=== PATIENT | female | born 1935 | race African-American/Black ===

== ENCOUNTER 2016-10-24 11:15 | Observation (INO) ==
[2016-10-24] MEDS ORDERED: ONDANSETRON 4 MG/2 ML VIAL IV STA (12:19)
[2016-10-24] MEDS ORDERED: ALUM/MAG/SIMETH/LIDO VISC 1:1 30 ML BOTTLE PO STA (12:19)
[2016-10-24] MEDS ORDERED: METOPROLOL TARTRATE 25 MG TABLET PO STA (12:19)
[2016-10-24] MEDS ORDERED: MORPHINE 2 MG/1 ML SYRINGE IV STA (12:19)
[2016-10-24] MEDS ORDERED: NITROGLYCERIN 2% OINT 1 INCH/GM PACK TOP STA (12:19)
[2016-10-24] MEDS ORDERED: ASPIRIN 325 MG TABLET PO STA (12:19)
--- NOTE | 2016-10-24 12:23 | EKG Report ---
Stationary ECG Study [facility] ER Test Date: 10/24/2016 11:30:43 AM Pat Name: ESEQUIEL GUTIERREZ Department: Room: Gender: F [employer]er: : 1935 Requested by: Lalo Santiago Order Number: [id number] Reading MD: HIGINIO HERNANDEZ Intervals [place] Rate: 103 P: 9 [place]: 204 QRS: 9 QRSD: 89 T: -20 QT: 345 QTc: 405 Interpretive Statements SINUS TACHYCARDIA WITH FREQUENT SUPRAVENTRICULAR PREMATURE COMPLEXES LOW QRS VOLTAGE IN PRECORDIAL LEADS POSSIBLE INFERIOR MYOCARDIAL INFARCTION, OF INDETERMINATE AGE Electronically Signed On 10-24-16 13:04:58 CDT by HIGINIO HERNANDEZ [email or web address]
[2016-10-24] MEDS ORDERED: MORPHINE 2 MG/1 ML SYRINGE ONE (12:32)
[2016-10-24] MEDS ORDERED: METOPROLOL TARTRATE 25 MG TABLET ONE (12:32)
[2016-10-24] MEDS ORDERED: NITROGLYCERIN 2% OINT 1 INCH/GM PACK TOP ONE (12:32)
[2016-10-24] MEDS ORDERED: ONDANSETRON 4 MG/2 ML VIAL ONE (12:32)
[2016-10-24] MEDS ORDERED: ASPIRIN 325 MG TABLET ONE (12:33)
[2016-10-24] MEDS ORDERED: ALUM/MAG/SIMETH/LIDO VISC 1:1 30 ML BOTTLE PO ONE (12:33)
--- NOTE | 2016-10-24 12:50 | XRay Report ---
XR chest 1V portable Indication: Chest pain Comparison: 02 November 2015 Findings: The heart and mediastinum are normal in size and configuration. The pulmonary vascularity is normal in caliber. No lung infiltrates, effusions, pneumothorax or other abnormality is demonstrated. Impression: No acute cardiopulmonary disease. PROCEDURE INTERPRETED AT [facility] DEPARTMENT OF RADIOLOGY Final Report Signed by: Dr. Juve Oconnor
--- NOTE | 2016-10-24 13:07 | Emergency Department Note ---
Richard Frey Mantricia, am scribing for, and in the presence of, Lalo Joseph MD 11:41. Opal Frey Charles R, MD, personally performed the services described in this documentation, ascribed by Jess Ramos in my presence, and it is both accurate and complete . Arrival - Arrival Chief Complaint: Chest Pain Stated Complaint: chest pain ED Nursing Triage Note: pain in right side of chest and worse when she swallows since saturday. had a heart cath on saturday for same complaint. was seen at [facility] yesterday for same complaint and sent here and dcd from here yesterday. Mode of Arrival: Stretcher Limitations: No Limitations Source: Patient Time Seen by Provider: 10/24/16 11:35 - History of Present Illness HPI Narrative: Pt is an 81 y/o black female arriving to ED by EMS with c/o chest pain that onset today. Pt reports that she had a heart cath on Saturday by Dr. Martinez and a blockage was found. She reports that they ballooned it out. The same day of the heart cath, she denied any chest pain; however, today she states that she feels pressure and feels lightheaded. Pt has a PMHx of HTN, FL, PVD, CVA, IDDM, NIDDM, GERD, colon cancer, and anemia. She reports no other complaints to ED. Onset (ago): hour(s) Consistency: constant Severity: mild Allergies/Adverse Reactions: Allergies Allergy/AdvReac Type Severity Reaction Status Date / Time No Known Allergies Allergy Verified 08/13/16 09:40 Home Medications: Home Medications Medication Instructions Recorded Confirmed Type Aspirin [Ecotrin] 81 mg PO DAILY 01/12/15 10/24/16 History Carvedilol [Coreg] 6.25 mg PO DAILY 01/12/15 10/24/16 History Dexlansoprazole [Dexilant] 60 mg PO DAILY 01/12/15 10/24/16 History Gabapentin 100 mg PO TID 01/12/15 10/24/16 History Rosuvastatin Calcium [Crestor] 40 mg PO DAILY 01/12/15 10/24/16 History Insulin NPH/Regular 70/30 [HumuLIN 35 unit SUBCUT QPM 01/16/15 10/24/16 History 70/30] Insulin NPH/Regular 70/30 [HumuLIN 55 unit SUBCUT QAM 01/16/15 10/24/16 History 70/30] Ferrous Sulfate 325 mg PO DAILY 11/07/15 10/24/16 History Amlodipine Besylate 5 mg PO DAILY 08/13/16 10/24/16 History Morphine Sulfate 30 mg PO BID 08/13/16 10/24/16 History Ticagrelor [Brilinta] 90 mg PO BID 08/13/16 10/24/16 History Cilostazol 100 mg PO BID 10/15/16 10/24/16 History Cyanocobalamin/Folic Acid [Vitamin 1 tablet SL DAILY 10/15/16 10/24/16 History B80-Itmjv Acid Tablet] HYDROcodone/ACETAMIN 7.5-325 1 tablet PO BID PRN 10/15/16 10/24/16 History [[place] 7.5-325] Multivitamin [Multivitamins] 1 each PO DAILY 10/15/16 10/24/16 History Valsartan/Hydrochlorothiazide 0.5 tablet PO DAILY 10/15/16 10/24/16 History [Valsartan-Hctz 320-25 mg Tab] Benazepril HCl 40 mg PO DAILY 10/22/16 10/24/16 History Magnesium Oxide 400 mg PO DAILY 10/22/16 10/24/16 History Sitagliptin Phos/Metformin HCl 2 each PO DAILY 10/22/16 10/24/16 History [Janumet 50-1,000 mg Tablet] Ondansetron Odt Tab [Zofran Odt] 4 mg PO Q4H PRN #10 tablet 10/23/16 10/24/16 Rx Review of System - Review of System 12 point system: reviewed and no additional remarkable complaints except as stated - Review of System Constitutional: Absent: chills, diaphoresis, fever Respiratory: Absent: cough Cardiovascular: Present: chest pain. Absent: palpitations, dyspnea on exertion Gastrointestinal: Absent: abdominal pain, nausea, vomiting, diarrhea Musculoskeletal: Absent: arm pain, back pain, leg pain, neck pain Medical,Surgical,& Family Hx - Medical History Cardio: History of: Hypertension, FL (DR MORE), PVD (right leg) Neurology: History of: Cerebrovascular Accident No history of: Seizures HEENT: History of: Eye Problem (CATARACTS), Dental Problems (reports upper and lower dentures left at home) Endocrine: History of: Diabetes Mellitus (IDDM), Diabetes Mellitus (NIDDM), Dyslipidemia Respiratory: History of: Obstructive Sleep Apnea (reports currently machine is not working) Gastrointestinal: History of: GERD, GI Problems (Colon ca) Musculoskeletal: History of: Musculoskeletal Problems (reports history of 3 back surgeries for disc problems) Hematology: History of: Anemia - Surgical History Cardiac Surgeries: Sugical HX of: Cardiac Catheterization (RCA AND LAD stent) Thoracic Surgeries: Patient denies;: Organ Transplant HEENT Surgeries: Surgical HX of: Eye Surgery (CATARACTS) Abdominal Surgeries: Surgical HX of: Colonoscopy ([facility]), EGD ([facility]) Reproductive Surgeries: Surgical HX of;: Hysterectomy Orthopedic Surgeries: Surgical HX of;: Orthopedic Surgery (3 BACK SURGERYS) - Family History Family History: Reports;: Family Diabetes (daughter), Family Heart Disease (son) , Family Hypertension (daughter and son), Family Stroke (daughter) Denies;: Family Cancer - Social History Smoking Status: Former smoker Exam Vital Signs: Vital Signs Temperature 98.6 F 10/24/16 11:45 Pulse Rate 84 10/24/16 16:00 Respiratory Rate 18 10/24/16 16:00 Blood Pressure 100/50 10/24/16 16:00 O2 Sat by Pulse Oximetry 98 10/24/16 16:00 - General General appearance: alert, in no apparent distress - Head Head exam: Present: atraumatic, normocephalic, normal inspection - Eye Eye exam: Present: normal appearance, PERRL, EOMI - ENT ENT exam: Present: normal exam, normal oropharynx, mucous membranes moist, TM's normal bilaterally, normal external ear exam - Neck Neck exam: Present: normal inspection, full ROM, trachea midline. Absent: tenderness - Chest Chest inspection: Present: normal inspection, symmetric chest wall rise. Absent : tenderness - Respiratory Respiratory exam: Present: normal lung sounds bilaterally - Cardiovascular Cardiovascular exam: Present: regular rate, normal rhythm, normal heart sounds, murmur (3/6 systolic) - Abdominal Exam Abdominal exam: Present: soft, normal bowel sounds. Absent: distention, tenderness, guarding, rebound - Extremities Exam Extremities exam: Present: normal inspection, full ROM, normal capillary refill. Absent: tenderness, pedal edema - Back Exam Back exam: Present: normal inspection, full ROM. Absent: tenderness - Neurological Exam Neurological exam: Present: alert, oriented X3, CN II-XII intact, reflexes normal - Psychiatric Psychiatric exam: Present: normal affect, normal mood - Skin Skin exam: Present: warm, dry, intact, normal color Course - Consultations Consultation #1: Dr. Kiran will admit patient Time: 16:38 Results - Labs CBC & BMP: 10/24/16 13:13 10/24/16 13:13 Lab Results: I have reviewed the patients labs - Diagnostic Findings Procedure: Chest x-ray: report reviewed by me (No acute cardiopulmonary disease. ), CT - chest: report reviewed by me ( There is no evidence of pulmonary artery embolus. 2. Enlargement is obvious is a nonspecific finding and could reflect presbyesophagus or achalasia. Other considerations could include scleroderma or other connective tissue disorders. 3. 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 4. Right adrenal nodule has attenuation characteristics indeterminate for adenoma.) Disposition Clinical Impression: Atypical chest pain, PVD (peripheral vascular disease) Case discussed with: patient, patient's family Disposition: Still a Patient Condition: Stable Time of Disposition: 16:39
[2016-10-24 13:30] LABS: Basophils % 0.2 % (0.0-0.8); Eosinophils # 0.1 10*3/uL (0.0-0.87); Eosinophils % 0.9 % (0.00-10.9); Hematocrit 33.7 VOL% (35.7-47.0); Hemoglobin 10.6 GM/DL (12.0-16.0); Immature Granulocytes % 0.4 %; Immature Granulocytes Absolute 0.05 #; Lymphocytes # 1.3 10*3/uL (1.4-4.0); Lymphocytes % 11.3 % (21.3-54.2); Mean Corpuscular HGB Conc 31.5 GM/DL (32-36); Mean Corpuscular Hemoglobin 23 PG (27-34); Mean Corpuscular Volume 72.2 FL (87-102); Mean Platelet Volume 9.5 FL (9.6-12.0); Monocytes # 0.8 10*3/uL (0.11-0.8); Monocytes % 6.3 % (1.7-12.7); Neutrophils # 9.6 10*3/uL (1.4-7.4); Neutrophils % 80.9 % (38.7-73.9); Platelet Count 224 T/CUMM (130-400); Red Blood Count 4.67 MC/CUMM (3.8-5.5); Red Cell Distribution Width 15.6 % (9.3-17.3); White Blood Count 11.9 T/CUMM (4-12)
[2016-10-24 13:40] LABS: PT Patient Result 10.8 SECS
[2016-10-24 13:50] LABS: Magnesium 1.9 MG/DL (1.8-2.4)
[2016-10-24 13:54] LABS: Bilirubin,Total 0.4 MG/DL (0.2-1.0); Calcium 9.1 MG/DL (8.5-10.1); Osmolality,Calculated 285.5 MOS/KG (273-304); Potassium 4.3 MMOL/L (3.5-5.1); Total Protein 6.4 G/DL (6.4-8.3)
--- NOTE | 2016-10-24 16:29 | CT Report ---
CT chest PE study Indication: Chest pain. Shortness of breath. Elevated d-dimer. Comparison: None. Technique: CT of the chest was performed following the administration of intravenous contrast. In addition to multiple contiguous axial source images obtained from the thoracic inlet through the upper abdomen, coronal and sagittal MPR series were performed as were thin slab MIP reconstructions in the coronal and sagittal plane. The CT examination was performed using one or more of the following dose reduction techniques: Automatic exposure control, adjustment of the mA and kV according to patient size, or iterative reconstruction techniques. Findings: Lungs: Centrilobular emphysematous changes are suggested bilaterally. Dependent atelectatic changes are noted bilaterally. No pleural effusions are present. Aorta: No significant abnormality of the aorta is demonstrated. Incidental note is made of moderate stenosis involving the left subclavian artery origin. Pulmonary artery: Pulmonary artery is normal in size and demonstrates no significant abnormality. Lymph nodes: No adenopathy is noted within the axilla, marcos, or mediastinum. Heart: Heart is normal in size. Esophagus: Esophagus appears enlarged and somewhat flattened with air-fluid level within the upper chest. This is a nonspecific finding and could reflect evidence of presbyesophagus or evidence of achalasia. Osseous structures: Osseous structures of the thoracic spine, imaged rib cage, and imaged shoulder girdles demonstrate no significant abnormality. Soft tissues and muscular: Soft tissues and musculature of the chest wall as well as imaged lower neck demonstrate no acute findings. Upper abdomen: High attenuation material within the gallbladder lumen may reflect vicarious excretion of contrast. Additionally, nodular thickening involving the medial limb of the right adrenal gland is demonstrated measuring 12 mm in transverse dimension. This has a mean attenuation of 40 Hounsfield units which is indeterminate for adenoma. Impression: 1. There is no evidence of pulmonary artery embolus. 2. Enlargement is obvious is a nonspecific finding and could reflect presbyesophagus or achalasia. Other considerations could include scleroderma or other connective tissue disorders. 3. 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 4. Right adrenal nodule has attenuation characteristics indeterminate for adenoma. 10/24/2016 4:05 PM PROCEDURE INTERPRETED AT [facility] DEPARTMENT OF RADIOLOGY Final Report Signed by: Dr. Fleipe Davis
--- NOTE | 2016-10-24 17:21 | Cardiology History & Physical ---
<Niurka Robbins E - Last Filed: 10/24/16 17:09> Assessment and Plan - Time spent with patient Time spent with patient: Greater than 30 minutes (due to assessment, plan, and documentation) (1) Chest pain Status: Acute Assessment and plan: See plan of care listed below. Current Visit: Yes (2) Coronary artery disease Status: Chronic Assessment and plan: See plan of care listed below. Current Visit: Yes (3) PVD (peripheral vascular disease) Status: Chronic Assessment and plan: See plan of care listed below. Current Visit: Yes (4) Hypertension Status: Chronic Assessment and plan: See plan of care listed below. Current Visit: Yes (5) Dyslipidemia Status: Chronic Assessment and plan: See plan of care listed below. Current Visit: Yes (6) Obstructive sleep apnea Status: Chronic Assessment and plan: See plan of care listed below. Current Visit: Yes (7) Type 2 diabetes mellitus Status: Chronic Assessment and plan: See plan of care listed below. Current Visit: Yes History of Present Illness Chief complaint: chest pain History of present illness: Computer Application Developer: Dr. Grady PCP: Dr. Jerome Ms. Pond is being seen in the emergency room, #4. Ms. Pond is a 81 year old female with a history of coronary artery disease, dyslipidemia, hypertension, obstructive sleep apnea ( noncompliant with CPAP for over a year), type 2 diabetes, peripheral vascular disease. She is a former smoker having quit in 1995 after smoking for approximately 20 years. She has undergone numerous heart catheterizations and peripheral angiographies as described below. Ms. Pond was discharged home yesterday after receiving angioplasty for right external iliac in-stent restenosis and tells me that upon arriving home yesterday evening, she had an episode of vomiting followed by an episode of dizziness. She went to bed and this morning around 6:30 AM, she woke up with mid substernal chest pain. She notes this was sharp in quality and she had associated symptoms of dizziness, lightheadedness, shortness of breath. She denies any nausea, vomiting, or diaphoresis. He was mild to moderate in severity. It did not radiate. It is nonreproducible to palpation, movement, or deep breath. She tells me that this lasted approximately an hour and went away on its own. She tells me that upon arriving to our emergency room, she had a subsequent episode of chest pain which was relieved by medications that we gave her which include aspirin, nitroglycerin, morphine, metoprolol, and GI cocktail. She ambulates with a cane and reports recently, she has been able to perform her usual activities without exertional dyspnea or chest pain. On 10/22/2016, she underwent abdominal aortogram and right common iliac angiography with runoff by Dr. Grady. At that time, she was noted to have widely patent bilateral common iliac "kissing" stents extending into the distal aorta, patent right external iliac stent with a discrete area of 70% stenosis distally, mid SFA occlusion, and a widely patent proximal right SFA popliteal bypass graft with reasonably good runoff through one-vessel which is the anterior tibial artery to the ankle. She underwent angioplasty of the right external iliac in-stent restenosis with a drug-eluting balloon with good result. She is status post non-STEMI in March 2010. She underwent left heart cath on 03/16/2010 with stenting of mid LAD and ostial RCA disease. Repeat catheterization on 01/10/2011 revealed 25% proximal LAD stenosis with widely patent mid LAD stent, mild to moderate irregularities throughout the circumflex with no significant discrete lesions, and widely patent ostial/proximal RCA stent with no significant RCA disease. Her initial troponin is negative. Her EKG shows sinus tachycardia; she has had some mild ST-T changes in comparison to previous EKGs, primarily in the inferior leads. We will admit her to cardiology service to rule out for CT. We will keep her n.p.o. after midnight tonight in anticipation of possible cardiac evaluation in the morning. ASSESSMENT/PLAN: 1. CHEST PAIN - Continue to cycle cardiac biomarkers and EKGs and follow trend. Will further discuss with Dr. Kiran and await his additional recommendations. 2. CORONARY ARTERY DISEASE - Continue ASA, Brilinta, statin, beta dhruv, and ARB. Admit to telemetry to rule out CT. She is status post non-STEMI in March 2010. She underwent left heart cath on 03/16/2010 with stenting of mid LAD and ostial RCA disease. 3. PERIPHERAL VASCULAR DISEASE - Continue Brilinta, aspirin, and statin. 4. HYPERTENSION - Currently well controlled. Will resume home medications, monitor, and adjust accordingly. 5. DYSLIPIDEMIA - Lipid panel in AM. Continue lipid lowering agent. 6. OBSTRUCTIVE SLEEP APNEA - Noncompliant, will consult sleep medicine in the morning for follow up. 7. TYPE 2 DIABETES MELLITUS - She has been started on accuchecks and sliding scale insulin. I have attempted to review in detail the patient's transfer orders; however, they are currently locked up by another user and I am unable to access them. Home Medications Medication Instructions Recorded Confirmed Type Aspirin [Ecotrin] 81 mg PO DAILY 01/12/15 10/24/16 History Carvedilol [Coreg] 6.25 mg PO DAILY 01/12/15 10/24/16 History Dexlansoprazole [Dexilant] 60 mg PO DAILY 01/12/15 10/24/16 History Gabapentin 100 mg PO TID 01/12/15 10/24/16 History Rosuvastatin Calcium [Crestor] 40 mg PO DAILY 01/12/15 10/24/16 History Insulin NPH/Regular 70/30 [HumuLIN 35 unit SUBCUT QPM 01/16/15 10/24/16 History 70/30] Insulin NPH/Regular 70/30 [HumuLIN 55 unit SUBCUT QAM 01/16/15 10/24/16 History 70/30] Ferrous Sulfate 325 mg PO DAILY 11/07/15 10/24/16 History Amlodipine Besylate 5 mg PO DAILY 08/13/16 10/24/16 History Morphine Sulfate 30 mg PO BID 08/13/16 10/24/16 History Ticagrelor [Brilinta] 90 mg PO BID 08/13/16 10/24/16 History Cilostazol 100 mg PO BID 10/15/16 10/24/16 History Cyanocobalamin/Folic Acid [Vitamin 1 tablet SL DAILY 10/15/16 10/24/16 History K37-Hqbrc Acid Tablet] HYDROcodone/ACETAMIN 7.5-325 1 tablet PO BID PRN 10/15/16 10/24/16 History [[place] 7.5-325] Multivitamin [Multivitamins] 1 each PO DAILY 10/15/16 10/24/16 History Valsartan/Hydrochlorothiazide 0.5 tablet PO DAILY 10/15/16 10/24/16 History [Valsartan-Hctz 320-25 mg Tab] Benazepril HCl 40 mg PO DAILY 10/22/16 10/24/16 History Magnesium Oxide 400 mg PO DAILY 10/22/16 10/24/16 History Sitagliptin Phos/Metformin HCl 2 each PO DAILY 10/22/16 10/24/16 History [Janumet 50-1,000 mg Tablet] Ondansetron Odt Tab [Zofran Odt] 4 mg PO Q4H PRN #10 tablet 10/23/16 10/24/16 Rx Allergies Allergy/AdvReac Type Severity Reaction Status Date / Time No Known Allergies Allergy Verified 08/13/16 09:40 Review of systems: - Constitutional: Present: fatigue, As per HPI. Absent: anorexia, chills, daytime sleepiness, excessive sweating, fever(s), frequent falls, headache(s), increased appetite, lethargy, malaise, night sweats, stops breathing during sleep, weakness, weight gain, weight loss. - EENT Eyes: Present: As per HPI. Absent: blurry vision, diplopia, loss of vision Ears: Present: As per HPI. Absent: decreased hearing, ear discharge, ear pain Nose, mouth and throat: Present: As per HPI. Absent: dysphagia, epistaxis, headache(s), hoarseness, lip swelling, nasal congestion, neck mass, neck pain, sinus pressure, sore throat, throat swelling, tongue swelling, vertigo - Cardiovascular: Present: chest pain at rest, dyspnea, palpitations, lightheadedness, as per HPI. Absent: chest pain with activity, dyspnea on exertion, edema, claudication, diaphoresis, radiating jaw, neck or arm pain, orthopnea, PND - Respiratory: Present: dyspnea, as per HPI. Absent: dyspnea on exertion, cough, hemoptysis, wheezing, snoring, pain on inspiration - Gastrointestinal: Present: As per HPI. Absent: abdominal pain, bloating, change in bowel habits, constipation, diarrhea, heartburn, hematemesis, hematochezia, loose stools, melena, nausea, vomiting - Genitourinary: Present: As per HPI. Absent: difficulty urinating, dysuria, flank pain, hematuria, nocturia, urinary frequency, urinary incontinence - Musculoskeletal: Present: As per HPI. Absent: arthralgias, back pain, joint swelling, limited range of motion, muscle cramps, muscle weakness, myalgias - Neurological: Present: dizziness, As per HPI. Absent: abnormal gait, abnormal speech, behavioral changes, confusion, convulsions, disequilibrium, focal weakness, frequent falls, headache(s), memory loss, numbness, paresthesias, radicular pain, syncope, tremor(s) - Psychiatric: Present: As per HPI. Absent: anxiety, confusion, depression, panic attacks - Endocrine: Present: fatigue, As per HPI. Absent: cold intolerance, heat intolerance, polydipsia, polyphagia - Hematologic/Lymphatic: Present: As per HPI. Absent: easy bleeding, easy bruising, lymphadenopathy Medical,Surgical,& Family Hx - Medical History Cardio: History of: CAD, Hypertension, CT (DR MORE), PVD (right leg) Neurology: History of: Cerebrovascular Accident No history of: Seizures HEENT: History of: Eye Problem (CATARACTS), Dental Problems (reports upper and lower dentures left at home) Endocrine: History of: Diabetes Mellitus (IDDM), Diabetes Mellitus (NIDDM), Dyslipidemia Respiratory: History of: Obstructive Sleep Apnea (reports currently machine is not working) Gastrointestinal: History of: GERD, GI Problems (Colon ca) Musculoskeletal: History of: Musculoskeletal Problems (reports history of 3 back surgeries for disc problems) Hematology: History of: Anemia - Surgical History Cardiac Surgeries: Sugical HX of: Cardiac Catheterization (RCA AND LAD stent) Thoracic Surgeries: Patient denies;: Organ Transplant HEENT Surgeries: Surgical HX of: Eye Surgery (CATARACTS) Abdominal Surgeries: Surgical HX of: Colonoscopy ([facility]), EGD ([facility]) Reproductive Surgeries: Surgical HX of;: Hysterectomy Orthopedic Surgeries: Surgical HX of;: Orthopedic Surgery (3 BACK SURGERYS) - Family History Family History: Reports;: Family Diabetes (daughter), Family Heart Disease (son) , Family Hypertension (daughter and son), Family Stroke (daughter) Denies;: Family Cancer - Social History Smoking Status: Former smoker Frequency of Alcohol Use: None Type of Drug Use: None Marital Status: Functional capacity: uses cane/walker Cardiology Physical Exam - Constitutional Vitals: Vital Signs Temp Pulse Resp BP Pulse Ox 98.6 F 84 18 100/50 98 10/24/16 11:45 10/24/16 16:00 10/24/16 16:00 10/24/16 16:00 10/24/16 16:00 Intake and Output 10/24/16 10/24/16 10/24/16 06:59 14:59 22:59 Other: Weight 162 lb Patient Weight 10/25/16 06:59 Weight 162 lb Exam: General appearance: Pleasant and cooperative. Overweight, no acute distress. - Head Head exam: Present: normal inspection, normocephalic, atraumatic. Absent: hematoma, laceration - Eye Eye exam: Present: EOMI. Absent: conjunctival injection, nystagmus, periorbital swelling, scleral icterus, laceration to eyelids Pupils: Present: PERRL. Absent: constricted, dilated, fixed, irregular, unequal - ENT ENT exam: Present: normal exam, normal external ear exam - Neck Neck exam: Present: normal inspection. Absent: lymphadenopathy, meningismus, tenderness, thyromegaly, carotid bruit - Respiratory Respiratory exam: Present: clear to auscultation bilaterally. Absent: accessory muscle use, chest wall tenderness, rales, rhonchi, wheezing. - Cardiovascular Cardiovascular exam: Present: regular rate and rhythm. Absent: gallop, JVD, rubs, murmur - GI/Abdominal GI/Abdominal exam: Present: normal bowel sounds, soft. Absent: distended, firm , guarding, hernia, mass, tenderness, rebound. - Extremities Exam Extremities exam: Present: normal inspection, normal capillary refill. Upper extremity pulses 2+. Lower extremity pulses diminished. Absent: calf tenderness , edema -Musculoskeletal Exam Musculoskeletal: Present: No Fluid Collection, No Pain, Normal Range of Motion - Back Exam Back exam: Present: normal inspection. Absent: muscle spasm, vertebral tenderness - Neurological Exam Neurological exam: Present: alert, oriented X3, grossly intact without resting or essential tremor - Psychiatric Psychiatric exam: Present: normal affect, normal mood - Skin Skin exam: Present: normal color, warm, dry, intact. Absent: cyanosis, diaphoretic, rash, urticaria Result/EKG - Labs CBC & BMP: 10/24/16 13:13 10/24/16 13:13 Lab Results: I have reviewed the past 24 hour labs Labs: Laboratory Results - last 24 hr 10/24/16 10/24/16 10/24/16 13:13 13:13 13:13 WBC 11.9 D RBC 4.67 Hgb 10.6 L Hct 33.7 L MCV 72.2 L MCH 23 L MCHC 31.5 L RDW 15.6 Plt Count 224 MPV 9.5 L Neut % (Auto) 80.9 H Lymph % (Auto) 11.3 L Hinds % (Auto) 6.3 Eos % (Auto) 0.9 Baso % (Auto) 0.2 Neut # (Auto) 9.6 H Lymph # (Auto) 1.3 L Hinds # (Auto) 0.8 Eos # (Auto) 0.1 Baso # (Auto) 0.0 Immature Gran % 0.4 Nucleated RBC % 0.0 Immature Gran # 0.05 Nucleated RBCs # 0.00 INR PT Patient/Control Mix D-Dimer, Quantitative Sodium 139 Potassium 4.3 Chloride 106 Carbon Dioxide 24 Anion Gap 13.3 BUN 23 H Creatinine 1.40 H GFR Calculation 41 BUN/Creatinine Ratio 16.00 Glucose 197 H Calculated Osmolality 285.5 Calcium 9.1 Magnesium Total Bilirubin 0.40 AST 17 ALT 19 Alkaline Phosphatase 91 Troponin I < 0.015 B-Natriuretic Peptide Total Protein 6.4 Albumin 3.0 L Globulin 3.4 Albumin/Globulin Ratio 0.8 L Lipase 10/24/16 10/24/16 10/24/16 13:13 13:13 13:13 WBC RBC Hgb Hct MCV MCH MCHC RDW Plt Count MPV Neut % (Auto) Lymph % (Auto) Hinds % (Auto) Eos % (Auto) Baso % (Auto) Neut # (Auto) Lymph # (Auto) Hinds # (Auto) Eos # (Auto) Baso # (Auto) Immature Gran % Nucleated RBC % Immature Gran # Nucleated RBCs # INR 1.0 PT Patient/Control Mix 10.8 D-Dimer, Quantitative 3.9 Sodium Potassium Chloride Carbon Dioxide Anion Gap BUN Creatinine GFR Calculation BUN/Creatinine Ratio Glucose Calculated Osmolality Calcium Magnesium 1.9 Total Bilirubin AST ALT Alkaline Phosphatase Troponin I B-Natriuretic Peptide 63 Total Protein Albumin Globulin Albumin/Globulin Ratio Lipase 188.0 D - EKG EKG results: interpreted by me, sinus rhythm <Haja Kiran - Last Filed: 10/24/16 20:29> History of Present Illness History of present illness: Cardiology addendum Patient has a long cardiac history and complex PVD history. Patient was just discharged home yesterday October 23 one day after undergoing right iliac stent PTCA for restenosis by Dr. Grady October 22. She was discharged yesterday morning and she was nauseated. Nausea persisted through most the day and she eventually vomited up. When she vomited she had chest pain briefly and then felt better. She came to the ER for evaluation. Troponin is negative. BNP level is 63. EKG shows sinus rhythm with ST-T wave changes only. CT the chest was negative for pulmonary embolus and for aortic dissection but did show centrilobular emphysema. Status post mid LAD stent April 07, 2009 with 3.5 x 15 vision and status post ostial RCA stent with a 4.5 x 18 ultra. Status post non-Q-wave CT March 16, 2010. 3. Heart cath at that time showed a 99% in-stent mid LAD restenosis which was restented with a 3.0 x 23 Promus and the proximal right coronary artery had a distal edge dissection which was stented with a 3.5 x 22 Promus. Circumflex had mild disease only and ejection fraction 70%. Patient has had multiple Peripheral vascular procedures. Status post bilateral iliac artery stents 2013. Status post right SFA to Popliteal bypass November 14, [address] Max Kerr for multiple reocclusions of right SFA stents. Patient has chronic dyspnea but denies any exertional angina. I believe that she had nausea and vomiting secondary to her recent dye load and she is comfortable at this time. Creatinine 1.40 BUN 23 potassium 4.3 magnesium 1.9 Plan Monitor Lexiscan cardiac stress test in a.m. Normal saline hydration Findings and plan discussed with nurse Duran present for the full discussion Cardiology Physical Exam - Constitutional Vitals: Vital Signs Temp Pulse Resp BP Pulse Ox 97.2 F L 86 18 106/48 98 10/24/16 19:12 10/24/16 19:12 10/24/16 19:12 10/24/16 19:12 10/24/16 19:12 Intake and Output 10/24/16 10/24/16 10/24/16 07:59 15:59 23:59 Other: Weight 73.482 kg 74.525 kg Patient Weight 10/24/16 23:59 Weight 74.525 kg Result/EKG - Labs CBC & BMP: 10/24/16 19:58 10/24/16 13:13 Labs: Laboratory Results - last 24 hr 10/24/16 10/24/16 10/24/16 13:13 13:13 13:13 WBC 11.9 D RBC 4.67 Hgb 10.6 L Hct 33.7 L MCV 72.2 L MCH 23 L MCHC 31.5 L RDW 15.6 Plt Count 224 MPV 9.5 L Neut % (Auto) 80.9 H Lymph % (Auto) 11.3 L Hinds % (Auto) 6.3 Eos % (Auto) 0.9 Baso % (Auto) 0.2 Neut # (Auto) 9.6 H Lymph # (Auto) 1.3 L Hinds # (Auto) 0.8 Eos # (Auto) 0.1 Baso # (Auto) 0.0 Immature Gran % 0.4 Nucleated RBC % 0.0 Immature Gran # 0.05 Nucleated RBCs # 0.00 INR PT Patient/Control Mix D-Dimer, Quantitative Sodium 139 Potassium 4.3 Chloride 106 Carbon Dioxide 24 Anion Gap 13.3 BUN 23 H Creatinine 1.40 H GFR Calculation 41 BUN/Creatinine Ratio 16.00 Glucose 197 H POC Glucose Calculated Osmolality 285.5 Calcium 9.1 Magnesium Total Bilirubin 0.40 AST 17 ALT 19 Alkaline Phosphatase 91 Troponin I < 0.015 B-Natriuretic Peptide Total Protein 6.4 Albumin 3.0 L Globulin 3.4 Albumin/Globulin Ratio 0.8 L Lipase 10/24/16 10/24/16 10/24/16 13:13 13:13 13:13 WBC RBC Hgb Hct MCV MCH MCHC RDW Plt Count MPV Neut % (Auto) Lymph % (Auto) Hinds % (Auto) Eos % (Auto) Baso % (Auto) Neut # (Auto) Lymph # (Auto) Hinds # (Auto) Eos # (Auto) Baso # (Auto) Immature Gran % Nucleated RBC % Immature Gran # Nucleated RBCs # INR 1.0 PT Patient/Control Mix 10.8 D-Dimer, Quantitative 3.9 Sodium Potassium Chloride Carbon Dioxide Anion Gap BUN Creatinine GFR Calculation BUN/Creatinine Ratio Glucose POC Glucose Calculated Osmolality Calcium Magnesium 1.9 Total Bilirubin AST ALT Alkaline Phosphatase Troponin I B-Natriuretic Peptide 63 Total Protein Albumin Globulin Albumin/Globulin Ratio Lipase 188.0 D 10/24/16 10/24/16 19:33 19:58 WBC 10.0 RBC 4.31 Hgb 9.6 L Hct 30.6 L MCV 71.0 L MCH 22 L MCHC 31.4 L RDW 15.3 Plt Count 219 MPV 10.1 Neut % (Auto) 74.4 H Lymph % (Auto) 17.7 L Hinds % (Auto) 6.1 Eos % (Auto) 1.1 Baso % (Auto) 0.2 Neut # (Auto) 7.4 Lymph # (Auto) 1.8 Hinds # (Auto) 0.6 Eos # (Auto) 0.1 Baso # (Auto) 0.0 Immature Gran % 0.5 Nucleated RBC % 0.0 Immature Gran # 0.05 Nucleated RBCs # 0.00 INR PT Patient/Control Mix D-Dimer, Quantitative Sodium Potassium Chloride Carbon Dioxide Anion Gap BUN Creatinine GFR Calculation BUN/Creatinine Ratio Glucose POC Glucose 225 H Calculated Osmolality Calcium Magnesium Total Bilirubin AST ALT Alkaline Phosphatase Troponin I B-Natriuretic Peptide Total Protein Albumin Globulin Albumin/Globulin Ratio Lipase
[2016-10-24] MEDS ORDERED: MORPHINE 2 MG/1 ML SYRINGE IV PRN (18:21)
[2016-10-24] MEDS ORDERED: MAGNESIUM SULF RIDER 2 GM in PREMIX 1 EACH IV PRN (18:21)
[2016-10-24] MEDS ORDERED: POTASSIUM CHLORIDE 20 MEQ TABLET PO PRN (18:21)
[2016-10-24] MEDS ORDERED: GLUCAGON 1 MG VIAL IM PRN (18:21)
[2016-10-24] MEDS ORDERED: DEXTROSE 50% 25 GM/50 ML VIAL IV PRN (18:21)
[2016-10-24] MEDS ORDERED: MAGNESIUM SULF RIDER 4 GM in PREMIX 1 EACH IV PRN (18:21)
[2016-10-24] MEDS ORDERED: DEXTROSE 5% NACL 0.9% 1,000 ML IV SCH (19:00)
[2016-10-24 20:04] LABS: Basophils % 0.2 % (0.0-0.8); Eosinophils # 0.1 10*3/uL (0.0-0.87); Eosinophils % 1.1 % (0.00-10.9); Hematocrit 30.6 VOL% (35.7-47.0); Hemoglobin 9.6 GM/DL (12.0-16.0); Immature Granulocytes % 0.5 %; Immature Granulocytes Absolute 0.05 #; Lymphocytes # 1.8 10*3/uL (1.4-4.0); Lymphocytes % 17.7 % (21.3-54.2); Mean Corpuscular HGB Conc 31.4 GM/DL (32-36); Mean Corpuscular Hemoglobin 22 PG (27-34); Mean Platelet Volume 10.1 FL (9.6-12.0); Monocytes # 0.6 10*3/uL (0.11-0.8); Monocytes % 6.1 % (1.7-12.7); Neutrophils # 7.4 10*3/uL (1.4-7.4); Neutrophils % 74.4 % (38.7-73.9); Platelet Count 219 T/CUMM (130-400); Red Blood Count 4.31 MC/CUMM (3.8-5.5); Red Cell Distribution Width 15.3 % (9.3-17.3)
[2016-10-24 20:36] LABS: Troponin I Only < 0.015 NG/ML (0.00-0.045)
[2016-10-24 20:42] LABS: Calcium 8.4 MG/DL (8.5-10.1); Magnesium 1.8 MG/DL (1.8-2.4); Osmolality,Calculated 286.7 MOS/KG (273-304); Potassium 4.2 MMOL/L (3.5-5.1)
[2016-10-24] MEDS: MORPHINE ER 30 MG TABLET PO SCH (22:15)
[2016-10-24] MEDS: INSULIN REGULAR 100 UNIT/ML SUBCUT SCH (22:15)
[2016-10-24] MEDS: TICAGRELOR 90 MG TABLET PO SCH (22:15)
[2016-10-24] MEDS: GABAPENTIN 100 MG CAPSULE PO SCH (22:15)
[2016-10-24] MEDS: CILOSTAZOL 100 MG TABLET PO SCH (22:19)
--- NOTE | 2016-10-25 06:39 | EKG Report ---
Stationary ECG Study [facility] Test Date: 10/24/2016 6:36:36 PM Pat Name: ESEQUIEL GUTIERREZ Department: Room: 266 Gender: F Pharmacy General Manager: [place] : 1935 Requested by: Lalo Santiago Order Number: [id number] Hay MD: HIGINIO HERNANDEZ Intervals [place] Rate: 83 P: 91 GA: 219 QRS: -16 QRSD: 86 T: 77 QT: 366 QTc: 406 Interpretive Statements SINUS RHYTHM WITH PROLONGED GA INTERVAL WITH OCCASIONAL SUPRAVENTRICULAR PREMATURE COMPLEXES Electronically Signed On 10-27-16 14:00:15 CDT by HIGINIO HERNANDEZ [email or web address]
[2016-10-25 06:51] LABS: Risk Ratio 1.94; VLDL CHOLESTEROL 17.6 MG/DL
[2016-10-25 06:54] LABS: Troponin I Only < 0.015 NG/ML (0.00-0.045)
--- NOTE | 2016-10-25 07:23 | XRay Report ---
History: Shortness of breath Date: 10/25/2016 Study: Chest x-ray PA and lateral Comparison exam: 10/24/2016 The cardiac silhouette is upper normal in size. There is no mediastinal mass. There is mild aortic arch calcification. The pulmonary vasculature is not engorged. There is some minor subsegmental atelectasis in the left lung base, though this is slightly improved. There is no new or worsening infiltrate. There is nonspecific mild pleural effusion layering posteriorly on the right. Osseous structures are unchanged. Impression: Minor subsegmental atelectasis left lung base, slightly improved in the interval. Trace right pleural effusion PROCEDURE INTERPRETED AT [facility] DEPARTMENT OF RADIOLOGY Final Report Signed by: Dr. Fatmata Jose
[2016-10-25] MEDS ORDERED: INSULIN NPH/REGULAR 70/30 100 UNIT/ML SUBCUT SCH ×2 (08:00→19:00)
[2016-10-25] MEDS ORDERED: VALSARTAN/HCTZ 160-12.5 MG TABLET PO SCH (09:00)
[2016-10-25] MEDS ORDERED: CARVEDILOL 6.25 MG TABLET PO SCH (09:00)
[2016-10-25] MEDS ORDERED: metFORMIN 500 MG TABLET PO SCH (09:00)
[2016-10-25] MEDS ORDERED: amLODIPine 5 MG TABLET PO SCH (09:00)
[2016-10-25] MEDS ORDERED: MULTIVITAMIN (CENTRUM) TABLET PO SCH (09:00)
[2016-10-25] MEDS ORDERED: NON-FORMULARY MEDICATION (Dexlansoprazole [Dexilant] 60 MG) PO SCH (09:00)
[2016-10-25] MEDS ORDERED: PANTOPRAZOLE 40 MG TABLET PO SCH (09:00)
[2016-10-25] MEDS ORDERED: BENAZEPRIL 40 MG TABLET PO SCH (09:00)
[2016-10-25] MEDS ORDERED: FERROUS SULFATE 325 MG TABLET PO SCH (09:00)
[2016-10-25] MEDS ORDERED: [UNRECOGNIZED DRUG - OTHER] SL SCH (09:00)
[2016-10-25] MEDS ORDERED: ROSUVASTATIN 20 MG TABLET PO SCH (09:00)
[2016-10-25] MEDS ORDERED: CYANOCOBALAMIN SL SCH (09:00)
[2016-10-25] MEDS ORDERED: MAGNESIUM OXIDE 400 MG TABLET PO SCH (09:00)
[2016-10-25] MEDS ORDERED: sitaGLIPtin 100 MG TABLET PO SCH (09:00)
[2016-10-25] MEDS ORDERED: ASPIRIN EC 81 MG TABLET PO SCH (09:00)
[2016-10-25] MEDS ORDERED: FOLIC ACID SL SCH (09:00)
--- NOTE | 2016-10-25 09:05 | Cardiology Progress Note ---
Assessment and Plan - Time spent with patient Time spent with patient: Less than 30 minutes (1) Chest pain Status: Acute Assessment and plan: See plan of care listed below. Current Visit: Yes (2) Coronary artery disease Status: Chronic Assessment and plan: See plan of care listed below. Current Visit: Yes (3) PVD (peripheral vascular disease) Status: Chronic Assessment and plan: See plan of care listed below. Current Visit: Yes (4) Hypertension Status: Chronic Assessment and plan: See plan of care listed below. Current Visit: Yes (5) Dyslipidemia Status: Chronic Assessment and plan: See plan of care listed below. Current Visit: Yes (6) Obstructive sleep apnea Status: Chronic Assessment and plan: See plan of care listed below. Current Visit: Yes (7) Type 2 diabetes mellitus Status: Chronic Assessment and plan: See plan of care listed below. Current Visit: Yes Cardiology - PN: Subj Interval history: Complaint Coordinator: Dr. Grady PCP: Dr. Jerome SUMMARY: Ms. Pond is a 81 year old female with a history of coronary artery disease, dyslipidemia, hypertension, obstructive sleep apnea ( noncompliant with CPAP for over a year), type 2 diabetes, peripheral vascular disease who presented to the ER yesterday afternoon with complaints of vomiting , dizziness, and chest pain. 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 She went to bed and the next morning, she woke up with mid substernal chest pain. She was admitted to cardiology's service to rule out [place]. OCTOBER 25, 2016: Patient reports she had no further episodes of chest pain or dizziness. Cardiac biomarkers were negative and her EKGs were unremarkable. She underwent Lexiscan Cardiolite this morning and we are awaiting these results. Echocardiogram is pending. We will obtain orthostatic vital signs. ASSESSMENT/PLAN: 1. CHEST PAIN - She underwent Lexiscan Cardiolite this morning without incident. We are currently awaiting these results. She denies any further episodes of chest pain yesterday evening and this morning. Will further discuss with Dr. Kiran and await his additional recommendations. 2. CORONARY ARTERY DISEASE - She has ruled out for [place]. Continue ASA, Brilinta, statin, beta dhruv, and ARB. She is status post non-STEMI in March 2010. She underwent left heart cath on 03/16/2010 with stenting of mid LAD and ostial RCA disease. 3. PERIPHERAL VASCULAR DISEASE - Continue Brilinta, aspirin, and statin. 4. HYPERTENSION - Currently well controlled. Will resume home medications, monitor, and adjust accordingly. 5. DYSLIPIDEMIA - Continue lipid lowering agent. Triglycerides 88, cholesterol 103, LDL 38, HDL 53. 6. OBSTRUCTIVE SLEEP APNEA - Noncompliant, will consult sleep medicine for follow up. 7. TYPE 2 DIABETES MELLITUS - She has been started on accuchecks and sliding scale insulin. Exam (Progress Note) - Constitutional Vitals: Period Temp Pulse Resp BP Sys/Brown Pulse Ox Last 24 Hr 96.4 F-98.6 F 78-102 16-20 100-148/48-70 90-100 Exam: General: Present: Appears Well, No Apparent Distress. Pleasant and cooperative. HEENT: Present: PERRL, Normocephaly, atraumatic. Mucus Membranes Moist. No jaundice noted. Conjunctiva moist and clear. Neck: Present: Supple Neck, Midline Trachea, No Masses, No Bruit, No tenderness Cardiac: Present: Regular Rate and Rhythm, No Murmur Lungs: Present: clear to auscultation bilaterally, no wheezes, rhonchi, rales. Neuro: Present: Awake, alert, and oriented x3. Moves all extremities well without hemiparesis or paralysis. Grossly Intact. Absent: Resting Tremor, Essential Tremor Abdomen: Present: Soft, Active Bowel Sounds, No Masses, Non-Tender, nondistended. No abdominal bruit or thrill noted. Skin: Present: Clear. Absent: Rash, No skin breakdown. Back: Normal inspection, no vertebral tenderness. Musculoskeletal: Present: No Fluid Collection, No Pain, Normal Range of Motion Extremities: Present: Normal Gait, No Clubbing, No Cyanosis, Upper Extr. Pulses 2+, Lower Extr. Pulses diminished, No edema. Capillary refill less than 3 seconds. Result/EKG - Labs CBC & BMP: 10/24/16 19:58 10/24/16 19:58 Lab Results: I have reviewed the past 24 hour labs Labs: Laboratory Results - last 24 hr 10/24/16 10/24/16 10/24/16 13:13 13:13 13:13 WBC 11.9 D RBC 4.67 Hgb 10.6 L Hct 33.7 L MCV 72.2 L MCH 23 L MCHC 31.5 L RDW 15.6 Plt Count 224 MPV 9.5 L Neut % (Auto) 80.9 H Lymph % (Auto) 11.3 L [place] % (Auto) 6.3 Eos % (Auto) 0.9 Baso % (Auto) 0.2 Neut # (Auto) 9.6 H Lymph # (Auto) 1.3 L [place] # (Auto) 0.8 Eos # (Auto) 0.1 Baso # (Auto) 0.0 Immature Gran % 0.4 Nucleated RBC % 0.0 Immature Gran # 0.05 Nucleated RBCs # 0.00 INR PT Patient/Control Mix D-Dimer, Quantitative Sodium 139 Potassium 4.3 Chloride 106 Carbon Dioxide 24 Anion Gap 13.3 BUN 23 H Creatinine 1.40 H GFR Calculation 41 BUN/Creatinine Ratio 16.00 Glucose 197 H POC Glucose Calculated Osmolality 285.5 Calcium 9.1 Magnesium Total Bilirubin 0.40 AST 17 ALT 19 Alkaline Phosphatase 91 Total Creatine Kinase CK-MB (CK-2) Troponin I < 0.015 B-Natriuretic Peptide Total Protein 6.4 Albumin 3.0 L Globulin 3.4 Albumin/Globulin Ratio 0.8 L Triglycerides Cholesterol LDL Cholesterol VLDL Cholesterol HDL Cholesterol Heart Disease Risk Ratio Lipase 10/24/16 10/24/16 10/24/16 13:13 13:13 13:13 WBC RBC Hgb Hct MCV MCH MCHC RDW Plt Count MPV Neut % (Auto) Lymph % (Auto) [place] % (Auto) Eos % (Auto) Baso % (Auto) Neut # (Auto) Lymph # (Auto) [place] # (Auto) Eos # (Auto) Baso # (Auto) Immature Gran % Nucleated RBC % Immature Gran # Nucleated RBCs # INR 1.0 PT Patient/Control Mix 10.8 D-Dimer, Quantitative 3.9 Sodium Potassium Chloride Carbon Dioxide Anion Gap BUN Creatinine GFR Calculation BUN/Creatinine Ratio Glucose POC Glucose Calculated Osmolality Calcium Magnesium 1.9 Total Bilirubin AST ALT Alkaline Phosphatase Total Creatine Kinase CK-MB (CK-2) Troponin I B-Natriuretic Peptide 63 Total Protein Albumin Globulin Albumin/Globulin Ratio Triglycerides Cholesterol LDL Cholesterol VLDL Cholesterol HDL Cholesterol Heart Disease Risk Ratio Lipase 188.0 D 07/26/17 07/26/17 07/26/17 19:33 19:58 19:58 WBC 10.0 RBC 4.31 Hgb 9.6 L Hct 30.6 L MCV 71.0 L MCH 22 L MCHC 31.4 L RDW 15.3 Plt Count 219 MPV 10.1 Neut % (Auto) 74.4 H Lymph % (Auto) 17.7 L [place] % (Auto) 6.1 Eos % (Auto) 1.1 Baso % (Auto) 0.2 Neut # (Auto) 7.4 Lymph # (Auto) 1.8 [place] # (Auto) 0.6 Eos # (Auto) 0.1 Baso # (Auto) 0.0 Immature Gran % 0.5 Nucleated RBC % 0.0 Immature Gran # 0.05 Nucleated RBCs # 0.00 INR PT Patient/Control Mix D-Dimer, Quantitative Sodium 138 Potassium 4.2 Chloride 105 Carbon Dioxide 25 Anion Gap 12.2 BUN 24 H Creatinine 1.50 H GFR Calculation 38 BUN/Creatinine Ratio 16.00 Glucose 242 H POC Glucose 225 H Calculated Osmolality 286.7 Calcium 8.4 L Magnesium 1.8 Total Bilirubin AST ALT Alkaline Phosphatase Total Creatine Kinase CK-MB (CK-2) Troponin I B-Natriuretic Peptide Total Protein Albumin Globulin Albumin/Globulin Ratio Triglycerides Cholesterol LDL Cholesterol VLDL Cholesterol HDL Cholesterol Heart Disease Risk Ratio Lipase 10/24/16 10/25/16 10/25/16 19:58 06:07 06:07 WBC RBC Hgb Hct MCV MCH MCHC RDW Plt Count MPV Neut % (Auto) Lymph % (Auto) [place] % (Auto) Eos % (Auto) Baso % (Auto) Neut # (Auto) Lymph # (Auto) [place] # (Auto) Eos # (Auto) Baso # (Auto) Immature Gran % Nucleated RBC % Immature Gran # Nucleated RBCs # INR PT Patient/Control Mix D-Dimer, Quantitative Sodium Potassium Chloride Carbon Dioxide Anion Gap BUN Creatinine GFR Calculation BUN/Creatinine Ratio Glucose POC Glucose Calculated Osmolality Calcium Magnesium Total Bilirubin AST ALT Alkaline Phosphatase Total Creatine Kinase 84 71 CK-MB (CK-2) 3.0 2.1 Troponin I < 0.015 < 0.015 B-Natriuretic Peptide Total Protein Albumin Globulin Albumin/Globulin Ratio Triglycerides 88 Cholesterol 103 LDL Cholesterol 38.0 VLDL Cholesterol 17.6 HDL Cholesterol 53 Heart Disease Risk Ratio 1.94 Lipase 10/25/16 07:04 WBC RBC Hgb Hct MCV MCH MCHC RDW Plt Count MPV Neut % (Auto) Lymph % (Auto) [place] % (Auto) Eos % (Auto) Baso % (Auto) Neut # (Auto) Lymph # (Auto) [place] # (Auto) Eos # (Auto) Baso # (Auto) Immature Gran % Nucleated RBC % Immature Gran # Nucleated RBCs # INR PT Patient/Control Mix D-Dimer, Quantitative Sodium Potassium Chloride Carbon Dioxide Anion Gap BUN Creatinine GFR Calculation BUN/Creatinine Ratio Glucose POC Glucose 161 H Calculated Osmolality Calcium Magnesium Total Bilirubin AST ALT Alkaline Phosphatase Total Creatine Kinase CK-MB (CK-2) Troponin I B-Natriuretic Peptide Total Protein Albumin Globulin Albumin/Globulin Ratio Triglycerides Cholesterol LDL Cholesterol VLDL Cholesterol HDL Cholesterol Heart Disease Risk Ratio Lipase - EKG EKG results: interpreted by me, sinus rhythm
--- NOTE | 2016-10-25 09:06 | Event Note ---
Patient for nuclear stress testing this morning. Lexiscan protocol utilized due to gait instability and lower extremity fatigue. THR achieved. No significant EKG changes noted. Patient experienced mild dyspnea. No chest pain, heaviness, or tightness noted. No dizziness, lightheadedness, or syncope. Patient now to nuclear medicine for final scan. Dr. Kiran to read, interpret, and advise.
[2016-10-25] MEDS ORDERED: REGADENOSON 0.4 MG/5 ML SYRINGE IV ONE (09:32)
--- NOTE | 2016-10-25 12:23 | Sleep Medicine Consult ---
Assessment and Plan (1) Obstructive sleep apnea Status: Chronic Assessment and plan: Ms. Pond has a history of obstructive sleep apnea and has remained compliant with CPAP therapy in the past. Since her device malfunctioned in April of this year, she has been without CPAP therapy. I contacted her DME provider, Goyo Massey and since her insurance has changed since earlier this year, she will be eligible for a replacement device. A prescription for replacement CPAP device as well as needed supplies was faxed to her DME provider, Goyo massey. She will need to follow-up in sleep clinic to establish compliance after being on her replacement CPAP device for over 31 days. Current Visit: Yes History of Present Illness Chief complaint: RODOLFO History of present illness: Ms. Pond is a 81 year old female was admitted with recurrent chest pain following her heart cath earlier this week. She is well known by our practice at [facility]. She has a history of obstructive sleep apnea was actually diagnosed in April 2010 with mild obstructive sleep apnea with a diagnostic AHI of 12.3, more significant REM component with an AHI of 26 and oxygen desaturations as low as 89%. She was prescribed CPAP therapy for treatment and was on a pressure setting of 11 cm. She was last seen in sleep clinic in April of this year at which time her CPAP device was not functioning properly. She was provided a prescription for replacement device but unfortunately, never received this due to issues with her insurance. She has been without CPAP for over 6 months. In the past, she had always remained compliant with CPAP and had excellent control of her underlying apnea. She acknowledges improvement in her sleep as well as her daytime fatigue and sleepiness with use of CPAP and is ready to resume it. She is accompanied today by 2 family members and has excellent family support. Her medical history remains positive for ischemic heart disease, diabetes, hypertension, hyperlipidemia and anemia. Home Medications Medication Instructions Recorded Confirmed Type Aspirin [Ecotrin] 81 mg PO DAILY 01/12/15 10/25/16 History Carvedilol [Coreg] 6.25 mg PO DAILY 01/12/15 10/25/16 History Dexlansoprazole [Dexilant] 60 mg PO DAILY 01/12/15 10/25/16 History Gabapentin 100 mg PO TID 01/12/15 10/25/16 History Rosuvastatin Calcium [Crestor] 40 mg PO DAILY 01/12/15 10/25/16 History Insulin NPH/Regular 70/30 [HumuLIN 35 unit SUBCUT QPM 01/16/15 10/24/16 History 70/30] Insulin NPH/Regular 70/30 [HumuLIN 55 unit SUBCUT QAM 01/16/15 10/24/16 History 70/30] Ferrous Sulfate 325 mg PO DAILY 11/07/15 10/25/16 History Amlodipine Besylate 5 mg PO DAILY 08/13/16 10/25/16 History Morphine Sulfate 30 mg PO BID 08/13/16 10/24/16 History Ticagrelor [Brilinta] 90 mg PO BID 08/13/16 10/25/16 History Cilostazol 100 mg PO BID 10/15/16 10/25/16 History Cyanocobalamin/Folic Acid [Vitamin 1 tablet SL DAILY 10/15/16 10/25/16 History X96-Hrbsp Acid Tablet] HYDROcodone/ACETAMIN 7.5-325 1 tablet PO BID PRN 10/15/16 10/24/16 History [[place] 7.5-325] Multivitamin [Multivitamins] 1 each PO DAILY 10/15/16 10/25/16 History Valsartan/Hydrochlorothiazide 0.5 tablet PO DAILY 10/15/16 10/25/16 History [Valsartan-Hctz 320-25 mg Tab] Benazepril HCl 40 mg PO DAILY 10/22/16 10/25/16 History Magnesium Oxide 400 mg PO DAILY 10/22/16 10/25/16 History Sitagliptin Phos/Metformin HCl 2 each PO DAILY 10/22/16 10/25/16 History [Janumet 50-1,000 mg Tablet] Ondansetron Odt Tab [Zofran Odt] 4 mg PO Q4H PRN #10 tablet 10/23/16 10/24/16 Rx guaiFENesin [Guaifenesin] 400 mg PO Q4HR PRN 10/25/16 10/25/16 History Allergies Allergy/AdvReac Type Severity Reaction Status Date / Time No Known Allergies Allergy Verified 08/13/16 09:40 - Constitutional Constitutional: Present: daytime sleepiness, fatigue, night sweats, stops breathing during sleep - Cardiovascular Cardiovascular: Present: chest pain with activity, dyspnea on exertion - Respiratory Respiratory: Present: dyspnea on exertion, snoring - Gastrointestinal Gastrointestinal: Present: heartburn. Absent: abdominal pain, constipation, diarrhea - Genitourinary Genitourinary: Present: urinary frequency - Psychiatric Psychiatric: Absent: anxiety, depression Exam ([place]) H&P - Constitutional Vitals: Period Temp Pulse Resp BP Sys/Brown Pulse Ox Last 24 Hr 96.4 F-98.6 F 78-95 16-20 100-148/48-67 90-100 General appearance: normal weight - Head Head exam: Present: normocephalic, atraumatic - Eye Pupils: Present: APOORVA - ENT ENT exam: Present: other (Mallampati III) - Expanded ENT Exam ENT Exam Throat exam: Absent: post pharyngeal edema, post pharyngeal erythema - Neck Neck exam: Absent: lymphadenopathy, thyromegaly - Respiratory Respiratory exam: Present: clear to auscultation bilaterally. Absent: rales, rhonchi, wheezes - Cardiovascular Cardiovascular exam: Present: regular rate and rhythm - GI/Abdominal GI/Abdominal exam: Present: normal bowel sounds, soft. Absent: mass, tenderness - Extremities Exam Extremities exam: Present: edema (trace edema) - Neurological Exam Neurological exam: Present: oriented X3 - Psychiatric Psychiatric exam: Present: normal affect, normal mood. Absent: depressed - Skin Skin exam: Present: warm, dry Medical,Surgical,& Family Hx - Medical History Cardio: History of: CAD, Hypertension, IA (DR MORE), PVD (right leg) Neurology: History of: Cerebrovascular Accident No history of: Seizures HEENT: History of: Eye Problem (CATARACTS), Dental Problems (reports upper and lower dentures left at home) Endocrine: History of: Diabetes Mellitus (IDDM), Diabetes Mellitus (NIDDM), Dyslipidemia Respiratory: History of: Obstructive Sleep Apnea (reports currently machine is not working) Gastrointestinal: History of: GERD, GI Problems (Colon ca) Musculoskeletal: History of: Musculoskeletal Problems (reports history of 3 back surgeries for disc problems) Hematology: History of: Anemia - Surgical History Cardiac Surgeries: Sugical HX of: Cardiac Catheterization (RCA AND LAD stent) Thoracic Surgeries: Patient denies;: Organ Transplant HEENT Surgeries: Surgical HX of: Eye Surgery (CATARACTS) Abdominal Surgeries: Surgical HX of: Colonoscopy ([facility]), EGD ([facility]) Reproductive Surgeries: Surgical HX of;: Hysterectomy Orthopedic Surgeries: Surgical HX of;: Orthopedic Surgery (3 BACK SURGERYS) - Family History Family History: Reports;: Family Diabetes (daughter), Family Heart Disease (son) , Family Hypertension (daughter and son), Family Stroke (daughter) Denies;: Family Cancer - Social History Smoking Status: Former smoker Frequency of Alcohol Use: None Type of Drug Use: None Results - Labs CBC & BMP: 10/24/16 19:58 10/24/16 19:58
[2016-10-25] MEDS: INSULIN REGULAR 100 UNIT/ML SUBCUT SCH ×2 (14:14→16:04)
[2016-10-25] MEDS: GABAPENTIN 100 MG CAPSULE PO SCH ×2 (14:17→16:00)
[2016-10-25] MEDS: MORPHINE ER 30 MG TABLET PO SCH (15:59)
[2016-10-25] MEDS: CILOSTAZOL 100 MG TABLET PO SCH (16:00)
[2016-10-25] MEDS: TICAGRELOR 90 MG TABLET PO SCH (16:01)
[2016-10-25 16:39] VITALS: BP 121/62
--- NOTE | 2016-10-25 17:06 | Discharge Summary ---
Hospital Course - Hospital Course Hospital Course: Tire Installer: Dr. Grady PCP: Dr. Jerome Ms. Pond is a 81 year old female with a history of coronary artery disease, dyslipidemia, hypertension, obstructive sleep apnea ( noncompliant with CPAP for over a year), type 2 diabetes, peripheral vascular disease who presented to the ER yesterday afternoon with complaints of vomiting , dizziness, and chest pain. 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 She went to bed and the next morning, she woke up with mid substernal chest pain. She was admitted to cardiology's service to rule out [place]. Cardiac biomarkers were negative and her EKGs were unremarkable. She underwent Lexiscan Cardiolite this morning which was abnormal but stable. EF 34% . Please see report for details. We will continue medical therapy on her current regimen. At discharge on 10/23, she was nauseated which persisted throughout the day. She eventually vomited and had a brief episode of chest pain then felt better. It is felt this is secondary to her recent dye load and she has had no further symptoms of chest discomfort. Her vital signs and labwork have been stable. At this time, she is felt to have met maximum benefit from hospitalization and will be discharged home in stable condition. Keep follow up appointment with Dr. Grady on 10/30/16 at 08:20AM. - Time spent with patient Time with patient DS: Greater than 30 minutes Diagnosis - Discharge Diagnosis (1) Chest pain Status: Resolved (2) Coronary artery disease Status: Chronic (3) PVD (peripheral vascular disease) Status: Chronic (4) Hypertension Status: Chronic (5) Dyslipidemia Status: Chronic (6) Obstructive sleep apnea Status: Chronic (7) Type 2 diabetes mellitus Status: Chronic Specialty Discharge - Follow Up or Referrals Follow up with: Kade Grady MD [Physician] - 10/30/16 8:20 am Discharge Plan - Discharge Data Disposition: Disch To Home/Self Care Condition at Discharge: Stable Discharge Diet: diabetic diet, heart healthy Activity: no lifting (Do not lift over 5 pounds for the next 4-5 days. ) Hygiene: may shower (Do not submerge cath site beneath water for the next 4-5 days. ) Weight Bearing at Discharge: full weight bearing Driving: not for (1 day) Contact your physician if you experience:: fever over 101, Difficulty voiding, Redness or swelling, Nausea/Vomiting, Shortness of breath, Bleeding, pain uncontrolled by pain medications - Discharge Medications Continue Carvedilol [Coreg] 6.25 mg PO DAILY Rosuvastatin Calcium [Crestor] 40 mg PO DAILY Dexlansoprazole [Dexilant] 60 mg PO DAILY Gabapentin 100 mg PO TID Aspirin [Ecotrin] 81 mg PO DAILY Insulin NPH/Regular 70/30 [HumuLIN 70/30] 55 unit SUBCUT QAM Insulin NPH/Regular 70/30 [HumuLIN 70/30] 35 unit SUBCUT QPM Ferrous Sulfate 325 mg PO DAILY Ticagrelor [Brilinta] 90 mg PO BID Amlodipine Besylate 5 mg PO DAILY HYDROcodone/ACETAMIN 7.5-325 [[place] 7.5-325] 1 tablet PO BID PRN PRN Reason: Pain Cilostazol 100 mg PO BID Benazepril HCl 40 mg PO DAILY Morphine Sulfate 30 mg PO BID Valsartan/Hydrochlorothiazide [Valsartan-Hctz 320-25 mg Tab] 0.5 tablet PO DAILY Multivitamin [Multivitamins] 1 each PO DAILY Cyanocobalamin/Folic Acid [Vitamin O54-Nulyg Acid Tablet] 1 tablet SL DAILY Magnesium Oxide 400 mg PO DAILY Sitagliptin Phos/Metformin HCl [Janumet 50-1,000 mg Tablet] 2 each PO DAILY Ondansetron Odt Tab [Zofran Odt] 4 mg PO Q4H PRN #10 tablet PRN Reason: Nausea guaiFENesin [Guaifenesin] 400 mg PO Q4HR PRN PRN Reason: Congestion - Follow Up or Referral - Forms/Instructions Exam - Constitutional Vitals: Period Temp Pulse Resp BP Sys/Brown Pulse Ox Last 24 Hr 96.4 F-98.6 F 72-99 16-20 102-156/48-77 90-100 Exam: General: Present: Appears Well, No Apparent Distress. Pleasant and cooperative. HEENT: Present: PERRL, Normocephaly, atraumatic. Mucus Membranes Moist. No jaundice noted. Conjunctiva moist and clear. Neck: Present: Supple Neck, Midline Trachea, No Masses, No Bruit, No tenderness Cardiac: Present: Regular Rate and Rhythm, No Murmur Lungs: Present: clear to auscultation bilaterally, no wheezes, rhonchi, rales. Neuro: Present: Awake, alert, and oriented x3. Moves all extremities well without hemiparesis or paralysis. Grossly Intact. Absent: Resting Tremor, Essential Tremor Abdomen: Present: Soft, Active Bowel Sounds, No Masses, Non-Tender, nondistended. No abdominal bruit or thrill noted. Skin: Present: Clear. Absent: Rash, No skin breakdown. Back: Normal inspection, no vertebral tenderness. Musculoskeletal: Present: No Fluid Collection, No Pain, Normal Range of Motion Extremities: Present: Normal Gait, No Clubbing, No Cyanosis, Upper Extr. Pulses 2+, Lower Extr. Pulses diminished, No edema. Capillary refill less than 3 seconds. Discharge Results Procedures and tests throughout hospitalization: Pending Orders 10/25/16 NM martha perf SPECT rest or str Routine 10/25/16 04:00 Urinalysis Labs on day of discharge: Labs from last 24 hours 10/25/16 10/25/16 10/25/16 15:58 12:04 07:04 WBC RBC Hgb Hct MCV MCH MCHC RDW Plt Count MPV Neut % (Auto) Lymph % (Auto) [place] % (Auto) Eos % (Auto) Baso % (Auto) Neut # (Auto) Lymph # (Auto) [place] # (Auto) Eos # (Auto) Baso # (Auto) Immature Gran % Nucleated RBC % Immature Gran # Nucleated RBCs # Sodium Potassium Chloride Carbon Dioxide Anion Gap BUN Creatinine GFR Calculation BUN/Creatinine Ratio Glucose POC Glucose 173 H 182 H 161 H Calculated Osmolality Calcium Magnesium Total Creatine Kinase CK-MB (CK-2) Troponin I Triglycerides Cholesterol LDL Cholesterol VLDL Cholesterol HDL Cholesterol Heart Disease Risk Ratio 10/25/16 10/25/16 10/24/16 06:07 06:07 19:58 WBC RBC Hgb Hct MCV MCH MCHC RDW Plt Count MPV Neut % (Auto) Lymph % (Auto) [place] % (Auto) Eos % (Auto) Baso % (Auto) Neut # (Auto) Lymph # (Auto) [place] # (Auto) Eos # (Auto) Baso # (Auto) Immature Gran % Nucleated RBC % Immature Gran # Nucleated RBCs # Sodium Potassium Chloride Carbon Dioxide Anion Gap BUN Creatinine GFR Calculation BUN/Creatinine Ratio Glucose POC Glucose Calculated Osmolality Calcium Magnesium Total Creatine Kinase 71 84 CK-MB (CK-2) 2.1 3.0 Troponin I < 0.015 < 0.015 Triglycerides 88 Cholesterol 103 LDL Cholesterol 38.0 VLDL Cholesterol 17.6 HDL Cholesterol 53 Heart Disease Risk Ratio 1.94 10/24/16 10/24/16 10/24/16 19:58 19:58 19:33 WBC 10.0 RBC 4.31 Hgb 9.6 L Hct 30.6 L MCV 71.0 L MCH 22 L MCHC 31.4 L RDW 15.3 Plt Count 219 MPV 10.1 Neut % (Auto) 74.4 H Lymph % (Auto) 17.7 L [place] % (Auto) 6.1 Eos % (Auto) 1.1 Baso % (Auto) 0.2 Neut # (Auto) 7.4 Lymph # (Auto) 1.8 [place] # (Auto) 0.6 Eos # (Auto) 0.1 Baso # (Auto) 0.0 Immature Gran % 0.5 Nucleated RBC % 0.0 Immature Gran # 0.05 Nucleated RBCs # 0.00 Sodium 138 Potassium 4.2 Chloride 105 Carbon Dioxide 25 Anion Gap 12.2 BUN 24 H Creatinine 1.50 H GFR Calculation 38 BUN/Creatinine Ratio 16.00 Glucose 242 H POC Glucose 225 H Calculated Osmolality 286.7 Calcium 8.4 L Magnesium 1.8 Total Creatine Kinase CK-MB (CK-2) Troponin I Triglycerides Cholesterol LDL Cholesterol VLDL Cholesterol HDL Cholesterol Heart Disease Risk Ratio DS: Provider Date of admission: 10/24/16 16:39 Primary care physician: . No PCP Attending physician on admission: Haja Kiran MD Consults: 10/24/16 18:30 Consult to Dietitian [CONS] Routine Reason for Dietitian: Other 10/25/16 08:00 Consult to Sleep Center [CONS] Routine Reason for Sleep Center: Sleep Center Physician Consult Comment: Hx RODOLFO, noncompliant >1 year Discharging clinician: MARIAH Solis-JUAN
--- NOTE | 2016-10-25 18:12 | Nuclear Medicine Report ---
DATE OF SERVICE: 10/25/2016 PROCEDURE: LEXISCAN CARDIOLITE GATED SPECT PERFUSION STUDY. INITIAL IMPRESSION: 1. AN 79-YEAR-OLD WOMAN WITH ATYPICAL CHEST PAIN. 2. STATUS POST LAD AND RCA STENTS. 3. ABNORMAL EKG. 4. HYPERTENSION. FINAL IMPRESSION: ABNORMAL BUT STABLE LEXISCAN CARDIOLITE GATED SPECT PERFUSION STUDY. I. DESCRIPTION OF PROCEDURE: The patient received 10.0 mCi of Technetium-99m Cardiolite IV and rest imaging was obtained in a routine manner 20 minutes later. The patient then received 30.0 mCi of Te chnetium-99m Cardiolite IV and pharmacologic stress imaging was obtained in a routine manner 20 minut es later. Serial electrocardiograms were performed. The initial blood pressure was 130/60 it and wa s 120/60 immediately post Lexiscan. The peak heart rate was 128. II. RESULTS: The patient had no chest pain or arrhythmias and tolerate Lexiscan infusion well. The resting EKG demonstrates normal sinus rhythm with poor R-wave progression across precordium and ST-T wave changes. With pharmacologic stress, no diagnostic EKG changes occurred. No arrhythmias. The left ventricle is dilated. Tomographic images shows distal anteroapical scar with no surrounding ischemia. Gated SPECT imaging demonstrates moderate global hypokinesis. The calculated ejection fr action is 33%. III. FINAL IMPRESSION: 1. CLINICALLY AND ELECTROCARDIOGRAPHICALLY NEGATIVE. 2. SCINTIGRAPHICALLY ABNORMAL ANTEROAPICAL SCAR AND NO ISCHEMIC. 3. SIGNIFICANT LEFT VENTRICULAR DYSFUNCTION EJECTION FRACTION OF 34% IV. DISPOSITION: The patient status post mid LAD and ostial RCA stent around 2013. He had no chest pain or diagnostic EKG changes. Tomographic imaging shows distal anteroapical scar with no ischemia . There is moderate global hypokinesis, ejection fraction calculated 34%. The patient has a compens ated ischemic cardiomyopathy. Continued medical therapy and risk factor modification recommended. Procedure performed and interpreted at [facility] Department of Radiology.
--- NOTE | 2016-10-25 18:36 | ECHO Report ---
Heather Pond Exam Date: 10/25/2016 09:58 Referring Physician: Technologist: raghu Arredondo ARDMS, RVT Age: 81 Ht (in): 63 Wt (lb): 162 Gender: F Exam Location: [facility] Echo Indications: Essential (primary) hypertension, Chest pain, unspecified, RODOLFO, PVD, CAD, Dyslipidemia BP: 117 / 56 HR: 95 Rhythm: Sinus Technical Quality: Good IMPRESSIONS Normal left ventricular cavity size. Left ventricular ejection fraction is estimated at 65%. Grade I/IV diastolic dysfunction (abnormal relaxation filling pattern), normal to mildly elevated filling pressures. The right ventricle is normal in size and function. The right atrium is normal in size. The left atrium is normal in size. Mitral valve sclerosis. Trace mitral valve regurgitation. Aortic valve sclerosis without stenosis or regurgitation. Mild tricuspid valve regurgitation. PAP40 mmHG. Pulmonic valve not well visualized. Normal pericardium without effusion. Normal ascending aorta dimension. MEASUREMENTS (Male / Female) Normal Values 2D ECHO LV Diastolic Diameter PLAX 4.1 cm 4.2 - 5.9 / 3.9 - 5.3 cm LV Systolic Diameter PLAX 2.1 cm LV Fractional Shortening PLAX 49.4 % IVS Diastolic Thickness 1.1 cm 0.6 - 1.0 / 0.6 - 0.9 cm LVPW Diastolic Thickness 1.0 cm 0.6 - 1.0 / 0.6 - 0.9 cm RV Internal Dim ED PLAX 3.6 cm Aortic Root Diameter 3.0 cm LA Systolic Diameter LX 2.6 cm 3.0 - 4.0 / 2.7 - 3.8 cm DOPPLER TR Peak Velocity 197.0 cm/s TR Peak Gradient 15.5 mmHg FINDINGS Left Ventricle Grade I/IV diastolic dysfunction (abnormal relaxation filling pattern), normal to mildly elevated filling pressures. Normal left ventricular cavity size. Mild left ventricular hypertrophy. Left ventricular ejection fraction is estimated at 65%. Right Ventricle The right ventricle is normal in size and function. Right Atrium The right atrium is normal in size. Left Atrium The left atrium is normal in size. Mitral Valve Mitral valve sclerosis. Trace mitral valve regurgitation. Aortic Valve Aortic valve sclerosis without stenosis or regurgitation. Tricuspid Valve Morphologically normal tricuspid valve. Mild tricuspid valve regurgitation. PAP40 mmHG. Pulmonic Valve Pulmonic valve not well visualized. Pericardium Normal pericardium without effusion. Aorta Normal ascending aorta dimension. Maikel Plavac (Electronically Signed) Final Date: 25 October 2016 18:35
== END 2016-10-25 18:39 | disposition home or self-care (01) | DRG 303 ==
LOC: EDBD → EDUNIT# → N.ED 11:15 → N.EDINP 16:39 → INTOOBSV 16:39 → N.TELES 18:10
PROVIDERS: ADMIT Internal Medicine Cardiovascular Disease; ATTEND Internal Medicine Cardiovascular Disease

== ENCOUNTER 2016-10-26 23:34 | Inpatient (IN) ==
[2016-10-27] MEDS ORDERED: ONDANSETRON 4 MG/2 ML VIAL IV STA (00:03)
[2016-10-27] MEDS ORDERED: LACTATED RINGERS 1,000 ML IV ONE (00:03)
[2016-10-27] MEDS ORDERED: DEXAMETHASONE 10 MG/1 ML VIAL ONE (00:04)
[2016-10-27] MEDS ORDERED: ONDANSETRON 4 MG/2 ML VIAL ONE (00:06)
[2016-10-27 00:58] LABS: Basophils % 0.2 % (0.0-0.8); Eosinophils # 0.1 10*3/uL (0.0-0.87); Eosinophils % 0.5 % (0.00-10.9); Hematocrit 36.3 VOL% (35.7-47.0); Hemoglobin 11.6 GM/DL (12.0-16.0); Immature Granulocytes % 0.8 %; Immature Granulocytes Absolute 0.11 #; Lymphocytes # 0.7 10*3/uL (1.4-4.0); Lymphocytes % 5.1 % (21.3-54.2); Mean Corpuscular Hemoglobin 22 PG (27-34); Mean Corpuscular Volume 70.2 FL (87-102); Mean Platelet Volume 10.4 FL (9.6-12.0); Monocytes # 0.8 10*3/uL (0.11-0.8); Neutrophils # 11.4 10*3/uL (1.4-7.4); Neutrophils % 87.4 % (38.7-73.9); Platelet Count 223 T/CUMM (130-400); Red Blood Count 5.17 MC/CUMM (3.8-5.5); Red Cell Distribution Width 15.4 % (9.3-17.3); White Blood Count 13.1 T/CUMM (4-12)
[2016-10-27 01:05] LABS: Apearance,Urine Slightly Hazy (Clear); Bacteria,Urine Few /HPF (Few); Bilirubin,Urine Negative (Negative); Blood, Urine Negative (Negative); Glucose,Urine (UA) Negative (Negative); Granular Casts,Urine 2 /LPF (0-1); Hyaline Casts,Urine 12 /LPF (0-3); Ketones,Urine Negative (Negative); Mucus,Urine Occasional /LPF (Occasional); Nitrite,Urine Negative (Negative); Protein,Urine 30 MG/DL; Squamous Epithelial Cell,Urine Occasional /HPF (0-10); Urine Color Yellow (Yellow); Urine Specific Gravity 1.018 (1.001-1.035); WBC,Urine 2 /HPF (0-6)
[2016-10-27 01:13] LABS: Albumin 3.2 G/DL (3.4-5.0); Bilirubin,Total 0.4 MG/DL (0.2-1.0); Calcium 9.4 MG/DL (8.5-10.1); Osmolality,Calculated 297.8 MOS/KG (273-304); Potassium 4.4 MMOL/L (3.5-5.1)
[2016-10-27 01:33] LABS: Lymphocytes 11 % (20-55); Segmented Neutrophils 86 % (50-85); Total Cells Counted 100
[2016-10-27 01:34] LABS: Ovalocytes 1+; Platelet Estimate Normal
[2016-10-27 01:35] LABS: Target Cells Few
--- NOTE | 2016-10-27 01:42 | Emergency Department Note ---
Pallavi Frey Hilary, am scribing for, and in the presence of, Lucio Ziegler MD 00:07 . Karlie Frey Hans, MD, personally performed the services described in this documentation, ascribed by Myra Olivo in my presence, and it is both accurate and complete . Arrival - Arrival Chief Complaint: Nausea/Vomiting/Diarrhea Stated Complaint: n/v ED Nursing Triage Note: Pt brought in by EMS with c/o n/v x2 days. Pt had heart cath done 3days ago by Dr. Yuen. Pt was seen and treated at [facility] today and dischaged home per EMS. Mode of Arrival: Stretcher Limitations: No Limitations Source: Patient, RN Notes Reviewed Time Seen by Provider: 10/26/16 23:50 - History of Present Illness HPI Narrative: Pt is a 89 y/o female brought into the ED via EMS for c/o nausea and vomiting which onset 2 days ago. Pt had a heart cath done [address] Yuen.She was seen here in the ED 3 days ago and discharged, then the next day came back and was admitted and given a stress test. Pt was seen and treated at [facility] today and dischaged home after x-rays and blood work. Pt confirms nausea and vomiting but denies diarrhea, hematochezia, fever, chills, vision change or swelling in her legs. She reports similar symptoms last time she had a heart cath and was told it had to do with the "dye". She reports not being able to keep liquids or solid food down. No other complaints or problems stated in the ED. Onset (ago): day(s) Consistency: constant Severity: mild Severity scale (1-10): 1 Allergies/Adverse Reactions: Allergies Allergy/AdvReac Type Severity Reaction Status Date / Time No Known Allergies Allergy Verified 08/13/16 09:40 Home Medications: Home Medications Medication Instructions Recorded Confirmed Type Aspirin [Ecotrin] 81 mg PO DAILY 01/12/15 10/25/16 History Carvedilol [Coreg] 6.25 mg PO DAILY 01/12/15 10/25/16 History Dexlansoprazole [Dexilant] 60 mg PO DAILY 01/12/15 10/25/16 History Gabapentin 100 mg PO TID 01/12/15 10/25/16 History Rosuvastatin Calcium [Crestor] 40 mg PO DAILY 01/12/15 10/25/16 History Insulin NPH/Regular 70/30 [HumuLIN 35 unit SUBCUT QPM 01/16/15 10/24/16 History 70/30] Insulin NPH/Regular 70/30 [HumuLIN 55 unit SUBCUT QAM 01/16/15 10/24/16 History 70/30] Ferrous Sulfate 325 mg PO DAILY 11/07/15 10/25/16 History Amlodipine Besylate 5 mg PO DAILY 08/13/16 10/25/16 History Morphine Sulfate 30 mg PO BID 08/13/16 10/24/16 History Ticagrelor [Brilinta] 90 mg PO BID 08/13/16 10/25/16 History Cilostazol 100 mg PO BID 10/15/16 10/25/16 History Cyanocobalamin/Folic Acid [Vitamin 1 tablet SL DAILY 10/15/16 10/25/16 History G56-Czkfi Acid Tablet] HYDROcodone/ACETAMIN 7.5-325 1 tablet PO BID PRN 10/15/16 10/24/16 History [[place] 7.5-325] Multivitamin [Multivitamins] 1 each PO DAILY 10/15/16 10/25/16 History Valsartan/Hydrochlorothiazide 0.5 tablet PO DAILY 10/15/16 10/25/16 History [Valsartan-Hctz 320-25 mg Tab] Benazepril HCl 40 mg PO DAILY 10/22/16 10/25/16 History Magnesium Oxide 400 mg PO DAILY 10/22/16 10/25/16 History Sitagliptin Phos/Metformin HCl 2 each PO DAILY 10/22/16 10/25/16 History [Janumet 50-1,000 mg Tablet] Ondansetron Odt Tab [Zofran Odt] 4 mg PO Q4H PRN #10 tablet 10/23/16 10/24/16 Rx guaiFENesin [Guaifenesin] 400 mg PO Q4HR PRN 10/25/16 10/25/16 History Review of System - Review of System 12 point system: reviewed and no additional remarkable complaints except as stated - Review of System Constitutional: Absent: chills, fever Eyes: Absent: vision change Gastrointestinal: Present: nausea, vomiting. Absent: abdominal pain, diarrhea, hematochezia Musculoskeletal: Absent: leg pain Medical,Surgical,& Family Hx - Medical History Cardio: History of: CAD, Hypertension, [place] (DR YUEN), PVD (right leg) Neurology: History of: Cerebrovascular Accident (May 2012) No history of: Seizures HEENT: History of: Eye Problem (CATARACTS), Dental Problems (reports upper and lower dentures left at home) Endocrine: History of: Diabetes Mellitus (IDDM), Diabetes Mellitus (NIDDM), Dyslipidemia Respiratory: History of: Obstructive Sleep Apnea (reports currently machine is not working) Gastrointestinal: History of: GERD, GI Problems (Colon ca) Musculoskeletal: History of: Musculoskeletal Problems (reports history of 3 back surgeries for disc problems) Hematology: History of: Anemia - Surgical History Cardiac Surgeries: Sugical HX of: Cardiac Catheterization (RCA AND LAD stent) Thoracic Surgeries: Patient denies;: Organ Transplant HEENT Surgeries: Surgical HX of: Eye Surgery (CATARACTS) Abdominal Surgeries: Surgical HX of: [facility]oscopy [facility]), EGD ([facility]) Reproductive Surgeries: Surgical HX of;: Hysterectomy Orthopedic Surgeries: Surgical HX of;: Orthopedic Surgery (3 BACK SURGERYS) - Family History Family History: Reports;: Family Diabetes (daughter), Family Heart Disease (son) , Family Hypertension (daughter and son), Family Stroke (daughter) Denies;: Family Cancer - Social History Smoking Status: Never smoker Frequency of Alcohol Use: None Type of Drug Use: None Exam Vital Signs: Vital Signs Temperature 97.1 F L 10/26/16 23:35 Pulse Rate 106 H 10/26/16 23:35 Respiratory Rate 18 10/26/16 23:35 Blood Pressure 119/62 10/26/16 23:35 O2 Sat by Pulse Oximetry 99 10/26/16 23:35 - General General appearance: alert, in no apparent distress - Head Head exam: Present: atraumatic, normocephalic - Eye Eye exam: Present: normal appearance, PERRL, EOMI - ENT ENT exam: Present: mucous membranes moist, TM's normal bilaterally. Absent: mucous membranes dry - Neck Neck exam: Present: full ROM, trachea midline. Absent: tenderness - Chest Chest inspection: Present: symmetric chest wall rise. Absent: tenderness - Respiratory Respiratory exam: Present: normal lung sounds bilaterally. Absent: respiratory distress - Cardiovascular Cardiovascular exam: Present: regular rate, irregular rhythm, normal heart sounds. Absent: murmur, rubs, gallop - Abdominal Exam Abdominal exam: Present: soft, distention (slight Tympanitic), normal bowel sounds. Absent: tenderness - Extremities Exam Extremities exam: Present: full ROM. Absent: tenderness - Back Exam Back exam: Present: full ROM. Absent: tenderness - Neurological Exam Neurological exam: Present: alert, oriented X3, CN II-XII intact. Absent: motor sensory deficit - Psychiatric Psychiatric exam: Present: normal affect, normal mood - Skin Skin exam: Present: warm, dry, intact, normal color. Absent: rash Course Course Narrative: This patient was evaluated in the ER with lab work, urinalysis, and x-ray of the abdomen. She appeared to have an ileus and had intractable nausea and vomiting that had resulted in a renal injury from prerenal volume depletion. She was treated with fluids and I will discuss her presentation with hospitalist on-call for admission. Results - Labs CBC & BMP: 10/27/16 00:12 10/27/16 00:12 Lab Results: I have reviewed the patients labs Labs: Laboratory Tests 10/27/16 00:12 WBC 13.1 H D RBC 5.17 Hgb 11.6 L D Hct 36.3 MCV 70.2 L MCH 22 L Plt Count 223 Neut % (Auto) 87.4 H Lymph % (Auto) 5.1 L Neut # (Auto) 11.4 H Lymph # (Auto) 0.7 L Laboratory Tests 10/27/16 10/27/16 00:12 00:12 Sodium 144 Potassium 4.4 Chloride 104 Carbon Dioxide 27 Anion Gap 17.4 H BUN 32 H Creatinine 2.10 H Glucose 188 H Total Protein 7.0 Albumin 3.2 L Globulin 3.8 H Albumin/Globulin Ratio 0.8 L Urine pH 5.0 Ur Specific [place] 1.018 Urine Protein 30 Urine Urobilinogen 2.0 H Urine WBC 2 Ur Squamous Epith Cells Occasional Hyaline Casts 12 Granular Casts 2 Urine Mucus Occasional Disposition Clinical Impression: Gastroenteritis, Ileus Case discussed with: patient, patient's family Disposition: Still a Patient Condition: Stable Instructions: Gastroenteritis (ED) Time of Disposition: 01:42
[2016-10-27] MEDS ORDERED: ONDANSETRON 4 MG/2 ML VIAL IV PRN (04:24)
[2016-10-27] MEDS ORDERED: ACETAMINOPHEN 325 MG TABLET PO PRN (04:24)
--- NOTE | 2016-10-27 04:41 | Hospitalist History & Physical ---
Assessment and Plan (1) Ileus Status: Acute Assessment and plan: Patient appears to have a ileus/partial central obstruction. Will give bowel rest with n.p.o. and IV fluid monitor renal function and volume status as patient has history of cardiomyopathy. Will get surgery consult Current Visit: Yes (2) Acute kidney injury Status: Acute Assessment and plan: Probably due to ileus/obstruction. Recent cardiac cath may have some contribution will hydrate as patient not been able to tolerate p.o. fluids and has been vomiting at home Current Visit: Yes (3) Hypertension Status: Chronic Assessment and plan: Blood pressure is controlled I will hold antihypertensive medication as patient has possible partial instrument obstruction Current Visit: No (4) Type 2 diabetes mellitus Status: Chronic Assessment and plan: We will monitor blood sugar with the sliding scale short-acting insulin every 6 hours Current Visit: No (5) Peripheral vascular disease Status: Chronic Assessment and plan: Recent stents and on antiplatelet therapy will continue consult cardiology as patient has not been able to tolerate p.o. medications Current Visit: Yes (6) Cardiomyopathy Status: Chronic Assessment and plan: Patient has history of cardiomyopathy/CHF but compensated at present she is on IV fluid to watch volume status closely Current Visit: Yes History of Present Illness Chief complaint: Nausea vomiting. History of present illness: Ms. Pond is a 81 year old female with history of coronary artery disease dyslipidemia hypertension sleep apnea type 2 diabetes mellitus peripheral vascular disease. She was recently admitted and discharged on 10/23/2014 planned angioplasty and had drug-coated balloon (7.0 x 40 Admiral) to in-stent restenosis in her distal right external iliac with good result. She was admitted next day with the vomiting and chest pain. She underwent a myocardial perfusion scan and was noted no evidence of ischemia and had left ventricle ejection fraction of 34%. She continued to have vomiting and nausea since then without any diarrhea. She is unable to hold any medication or food. She denies any abdominal pain had a bowel movement 3 days ago but still passing gas. She denies any fever cough or shortness breath. No chest pain reported she has been voiding without any dysuria or hematuria. She was seen in the ER today and underwent evaluation. Her lab work showed WBC count of 13.1 hemoglobin 11.6 hematocrit 36.3. She has BUN of 32 creatinine 2.1. Abdominal x-ray was consistent with the ileus with possible partial intestinal obstruction with multiple fluid levels. I was asked to admit the patient and patient is admitted for further evaluation and management Home Medications Medication Instructions Recorded Confirmed Type Aspirin [Ecotrin] 81 mg PO DAILY 01/12/15 10/25/16 History Carvedilol [Coreg] 6.25 mg PO DAILY 01/12/15 10/25/16 History Dexlansoprazole [Dexilant] 60 mg PO DAILY 01/12/15 10/25/16 History Gabapentin 100 mg PO TID 01/12/15 10/25/16 History Rosuvastatin Calcium [Crestor] 40 mg PO DAILY 01/12/15 10/25/16 History Insulin NPH/Regular 70/30 [HumuLIN 35 unit SUBCUT QPM 01/16/15 10/24/16 History 70/30] Insulin NPH/Regular 70/30 [HumuLIN 55 unit SUBCUT QAM 01/16/15 10/24/16 History 70/30] Ferrous Sulfate 325 mg PO DAILY 11/07/15 10/25/16 History Amlodipine Besylate 5 mg PO DAILY 08/13/16 10/25/16 History Morphine Sulfate 30 mg PO BID 08/13/16 10/24/16 History Ticagrelor [Brilinta] 90 mg PO BID 08/13/16 10/25/16 History Cilostazol 100 mg PO BID 10/15/16 10/25/16 History Cyanocobalamin/Folic Acid [Vitamin 1 tablet SL DAILY 10/15/16 10/25/16 History M92-Svfip Acid Tablet] HYDROcodone/ACETAMIN 7.5-325 1 tablet PO BID PRN 10/15/16 10/24/16 History [[place] 7.5-325] Multivitamin [Multivitamins] 1 each PO DAILY 10/15/16 10/25/16 History Valsartan/Hydrochlorothiazide 0.5 tablet PO DAILY 10/15/16 10/25/16 History [Valsartan-Hctz 320-25 mg Tab] Benazepril HCl 40 mg PO DAILY 10/22/16 10/25/16 History Magnesium Oxide 400 mg PO DAILY 10/22/16 10/25/16 History Sitagliptin Phos/Metformin HCl 2 each PO DAILY 10/22/16 10/25/16 History [Janumet 50-1,000 mg Tablet] Ondansetron Odt Tab [Zofran Odt] 4 mg PO Q4H PRN #10 tablet 10/23/16 10/24/16 Rx guaiFENesin [Guaifenesin] 400 mg PO Q4HR PRN 10/25/16 10/25/16 History Allergies Allergy/AdvReac Type Severity Reaction Status Date / Time No Known Allergies Allergy Verified 08/13/16 09:40 Medical,Surgical,& Family Hx - Medical History Cardio: History of: CAD, Hypertension, [place] (DR MORE), PVD (right leg) Neurology: History of: Cerebrovascular Accident (May 2012) No history of: Seizures HEENT: History of: Eye Problem (CATARACTS), Dental Problems (reports upper and lower dentures left at home) Endocrine: History of: Diabetes Mellitus (IDDM), Diabetes Mellitus (NIDDM), Dyslipidemia Respiratory: History of: Obstructive Sleep Apnea (reports currently machine is not working) Gastrointestinal: History of: GERD, GI Problems (Colon ca) Musculoskeletal: History of: Musculoskeletal Problems (reports history of 3 back surgeries for disc problems) Hematology: History of: Anemia - Surgical History Cardiac Surgeries: Sugical HX of: Cardiac Catheterization (RCA AND LAD stent) Thoracic Surgeries: Patient denies;: Organ Transplant HEENT Surgeries: Surgical HX of: Eye Surgery (CATARACTS) Abdominal Surgeries: Surgical HX of: Colonoscopy ([facility]), EGD ([facility]) Reproductive Surgeries: Surgical HX of;: Hysterectomy Orthopedic Surgeries: Surgical HX of;: Orthopedic Surgery (3 BACK SURGERYS) - Family History Family History: Reports;: Family Diabetes (daughter), Family Heart Disease (son) , Family Hypertension (daughter and son), Family Stroke (daughter) Denies;: Family Cancer - Social History Smoking Status: Never smoker Frequency of Alcohol Use: None Type of Drug Use: None Review of systems: Complete review systems done and negative unless indicated in HPI Exam - Constitutional Vitals: Period Temp Pulse Resp BP Sys/Brown Pulse Ox Last 24 Hr 97.1 F-97.1 F 106-106 18-18 119-119/62-62 99 General appearance: no acute distress - Head Head exam: Present: normal inspection, normocephalic, atraumatic - Eye Eye exam: Present: EOMI. Absent: conjunctival injection Pupils: Present: APOORVA, normal accommodation - ENT ENT exam: Present: normal exam, normal oropharynx - Neck Neck exam: Present: normal inspection, other (Supple) - Respiratory Respiratory exam: Present: clear to auscultation bilaterally. Absent: rales, rhonchi - Cardiovascular Cardiovascular exam: Present: regular rate and rhythm. Absent: tachycardia - GI/Abdominal GI/Abdominal exam: Present: normal bowel sounds, distended, soft. Absent: guarding, tenderness - Neurological Exam Neurological exam: Present: alert, oriented X3 - Psychiatric Psychiatric exam: Present: normal affect, normal mood - Skin Skin exam: Present: normal color Results - Labs CBC & BMP: 10/27/16 00:12 10/27/16 00:12 Lab Results: I have reviewed the past 24 hour labs
[2016-10-27] MEDS ORDERED: GLUCAGON 1 MG VIAL IM PRN (04:45)
[2016-10-27] MEDS ORDERED: DEXTROSE 50% 25 GM/50 ML SYRINGE IV PRN (04:45)
[2016-10-27] MEDS: SODIUM CHLORIDE 0.45% 1,000 ML IV SCH ×2 (05:23→15:19)
[2016-10-27] MEDS: INSULIN LISPRO 100 UNIT/ML SUBCUT SCH ×3 (06:40→17:49)
[2016-10-27] MEDS: HEPARIN 5,000 UNIT/1 ML VIAL SUBCUT SCH ×3 (06:41→21:50)
--- NOTE | 2016-10-27 07:14 | EKG Report ---
Stationary ECG Study [facility] ER Test Date: 10/27/2016 1:18:27 AM Pat Name: ESEQUIEL GUTIERREZ Department: Room: 526 Gender: F Improvement Lead: : 1935 Requested by: Lucio Ziegler Order Number: [id number] Hay MD: HIGINIO HERNANDEZ Intervals [place] Rate: 108 P: 65 [place]: 205 QRS: 17 QRSD: 81 T: 73 QT: 352 QTc: 416 Interpretive Statements SINUS TACHYCARDIA WITH OCCASIONAL VENTRICULAR AND SUPRAVENTRICULAR PREMATURE COMPLEXES Electronically Signed On 10-28-16 16:00:25 CDT by HIGINIO HERNANDEZ [email or web address]
--- NOTE | 2016-10-27 08:25 | XRay Report ---
XR abdomen 2V Indication: Nausea and vomiting. Comparison: Abdominal series 10/23/2016. Technique: Flat and erect images of the abdomen were performed. Findings: Gas is present throughout large and small bowel. Small bowel loops demonstrate multiple air-fluid levels without significant distention of small bowel associated. No organomegaly is suggested. No extraluminal air is present. Lung bases are clear. Bilateral common iliac artery stents and right common femoral artery external iliac artery stent is present. Bones and soft tissues demonstrate no significant abnormalities. Impression: 1. The appearance and configuration of the bowel gas pattern is most suggestive of enteritis or ileus. Follow-up is recommended. 10/27/2016 8:22 AM PROCEDURE INTERPRETED AT [facility] DEPARTMENT OF RADIOLOGY Final Report Signed by: Dr. Felipe Davis
--- NOTE | 2016-10-27 09:08 | Hospitalist Progress Note ---
Assessment and Plan (1) Ileus Status: Acute Assessment and plan: Impression: 1. Probable postprocedure ileus. This appears to be resolving 2. Acute kidney injury, likely due to recent dye load 3. Generalized atherosclerosis 4. Type II DM Plan: Offer liquids. Follow kidney function. Hope to discharge soon. This note was completed using [employer] voice recognition software. There may be fire assistant errors as a result. Current Visit: No Hospitalist: Subjective Interval history: Follow-up possible ileus or bowel obstruction. The patient says that she feels better. She has reported some flatus this morning. She says that she is hungry, and would like to eat something. She notes that she had a similar episode following a cardiac intervention back in July of this year. At that time, she had some vomiting that was "due to the dye load." It appears that she has had several interventions over the past few years. Exam - Constitutional Vitals: Period Temp Pulse Resp BP Sys/Brown Pulse Ox Last 24 Hr 97.1 F-97.2 F 92-108 17-20 119-137/59-91 92-100 Vital signs are noted above. Heart is regular with a soft systolic murmur no gallop. Lungs are fairly clear anteriorly. Abdomen is protuberant with good bowel sounds and minimal tenderness. She is awake and alert Results - Labs CBC & BMP: 10/27/16 00:12 10/27/16 00:12 Lab Results: I have reviewed the past 24 hour labs (Creatinine is trending up) Quality Measures - Stroke Symptom Onset Unknown: No Specialty Discharge - Follow Up or Referrals
[2016-10-27] MEDS: TICAGRELOR 90 MG TABLET PO SCH ×2 (09:55→21:50)
[2016-10-27] MEDS: ASPIRIN EC 81 MG TABLET PO SCH (09:56)
--- NOTE | 2016-10-27 10:23 | Cardiology Consult Note ---
Assessment and Plan - Time spent with patient Time spent with patient: Greater than 30 minutes (Chart review, film review documentation orders and interviewed physical exam) (1) PVD (peripheral vascular disease) Status: Chronic Current Visit: No (2) Ileus Status: Acute Current Visit: No (3) Coronary artery disease Status: Chronic Current Visit: No Qualifiers: Coronary Disease-Associated Artery/Lesion type: [place] artery [place] vs. transplanted heart: [place] heart Associated angina: without angina Qualified Code(s): I25.10 - Atherosclerotic heart disease of [place] coronary artery without angina pectoris (4) Hypertension Status: Chronic Current Visit: No (5) Dyslipidemia Status: Chronic Current Visit: No (6) Obstructive sleep apnea Status: Chronic Current Visit: No (7) Type 2 diabetes mellitus Status: Chronic Current Visit: No (8) Acute kidney injury Status: Acute Assessment and plan: Likely multifactorial volume contraction and recent contrast exposure most likely agree with hydration Current Visit: Yes (9) Peripheral vascular disease Status: Chronic Current Visit: Yes (10) Cardiomyopathy Status: Chronic Current Visit: Yes History of Present Illness - Data of Consult Patient: known to practice within the last 3 years Consult date: 10/27/16 - Consult Narrative Reason for consult: Acute renal failure History of present illness: Ms. Pond is a 81 year old female patient of Dr. 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 She had a nuclear stress test on 10/25/2016 that showed a anterior apical scar with no rest vertebral ischemia her ejection fraction was 34%. The patient presents with inability to keep anything down a distended abdomen nausea and vomiting. She has not had any chest discomfort. I have been asked to see. Her creatinine has gone from 1.5 prior to her PDA to 2.1. She is currently admitted to hospital service receiving IV hydration. She denies any chest pain or orthopnea. No leg pain. No complications at the access site per the patient access site looks good. is at the bedside to assist with the interview. CC: Shailesh Martin MD - Home Medications and Allergies Home Medications: Home Medications Medication Instructions Recorded Confirmed Type Aspirin [Ecotrin] 81 mg PO DAILY 01/12/15 10/27/16 History Carvedilol [Coreg] 6.25 mg PO Q12HR 01/12/15 10/27/16 History Dexlansoprazole [Dexilant] 60 mg PO DAILY 01/12/15 10/27/16 History Gabapentin 100 mg PO TID 01/12/15 10/27/16 History Rosuvastatin Calcium [Crestor] 40 mg PO DAILY 01/12/15 10/27/16 History Insulin NPH/Regular 70/30 [HumuLIN 20 unit SUBCUT QAM 01/16/15 10/27/16 History 70/30] Insulin NPH/Regular 70/30 [HumuLIN 20 unit SUBCUT QPM 01/16/15 10/27/16 History 70/30] Ferrous Sulfate 325 mg PO DAILY 11/07/15 10/27/16 History Amlodipine Besylate 5 mg PO DAILY 08/13/16 10/27/16 History Ticagrelor [Brilinta] 90 mg PO BID 08/13/16 10/27/16 History Cilostazol 100 mg PO BID 10/15/16 10/27/16 History Cyanocobalamin/Folic Acid [Vitamin 1 tablet SL DAILY 10/15/16 10/27/16 History I02-Iugbs Acid Tablet] HYDROcodone/ACETAMIN 7.5-325 1 tablet PO BID PRN 10/15/16 10/27/16 History [[place] 7.5-325] Valsartan/Hydrochlorothiazide 0.5 tablet PO DAILY 10/15/16 10/27/16 History [Valsartan-Hctz 320-25 mg Tab] Benazepril HCl 40 mg PO DAILY 10/22/16 10/27/16 History Magnesium Oxide 400 mg PO DAILY 10/22/16 10/27/16 History Sitagliptin Phos/Metformin HCl 2 each PO DAILY W/SUPPER 10/22/16 10/27/16 History [Janumet 50-1,000 mg Tablet] Ondansetron Odt Tab [Zofran Odt] 4 mg PO Q4H PRN #10 tablet 10/23/16 10/27/16 Rx Allergies/Adverse Reactions: Allergies Allergy/AdvReac Type Severity Reaction Status Date / Time No Known Allergies Allergy Verified 08/13/16 09:40 - Constitutional Constitutional: Present: anorexia, fatigue - EENT Nose, mouth and throat: Absent: dysphagia, vertigo - Cardiovascular Cardiovascular: Absent: chest pain at rest, chest pain with activity, claudication, diaphoresis, dyspnea, dyspnea on exertion, edema - Respiratory Respiratory: Absent: dyspnea, dyspnea on exertion - Gastrointestinal Gastrointestinal: Present: bloating, nausea, vomiting - Genitourinary Genitourinary: Absent: abnormal vaginal bleeding, difficulty urinating, flank pain, hematuria - Musculoskeletal Musculoskeletal: Present: arthralgias. Absent: joint swelling - Psychiatric Psychiatric: Present: depression. Absent: anxiety - Endocrine Endocrine: Absent: cold intolerance, heat intolerance - Hematologic/Lymphatic Hematologic/Lymphatic: Present: easy bruising. Absent: easy bleeding Medical,Surgical,& Family Hx - Medical History Cardio: History of: CAD, Hypertension, [place] (DR MORE), PVD (right leg) Neurology: History of: Cerebrovascular Accident (May 2012) No history of: Seizures HEENT: History of: Eye Problem (CATARACTS), Dental Problems (reports upper and lower dentures left at home) Endocrine: History of: Diabetes Mellitus (IDDM), Diabetes Mellitus (NIDDM), Dyslipidemia Respiratory: History of: Obstructive Sleep Apnea (reports currently machine is not working) Gastrointestinal: History of: GERD, GI Problems (Colon ca) Musculoskeletal: History of: Musculoskeletal Problems (reports history of 3 back surgeries for disc problems) Hematology: History of: Anemia - Surgical History Cardiac Surgeries: Sugical HX of: Cardiac Catheterization (RCA AND LAD stent) Thoracic Surgeries: Patient denies;: Organ Transplant HEENT Surgeries: Surgical HX of: Eye Surgery (CATARACTS) Abdominal Surgeries: Surgical HX of: Colonoscopy ([facility]), [facility]GD [facility]) Reproductive Surgeries: Surgical HX of;: Hysterectomy Orthopedic Surgeries: Surgical HX of;: Orthopedic Surgery (3 BACK SURGERYS) - Family History Family History: Reports;: Family Diabetes (daughter), Family Heart Disease (son) , Family Hypertension (daughter and son), Family Stroke (daughter) Denies;: Family Cancer - Social History Smoking Status: Never smoker Frequency of Alcohol Use: None Type of Drug Use: None Marital Status: Lives With:: Spouse Physical Examination Vital Signs Temp Pulse Resp BP Pulse Ox 97.1 F L 106 H 18 119/62 99 10/26/16 23:35 10/26/16 23:35 10/26/16 23:35 10/26/16 23:35 10/26/16 23:35 General: Present: Other (Appears chronically ill.) HEENT: Present: Pallor. Absent: Jaundice Neck: Present: Supple Neck, Midline Trachea, Other Cardiac: Present: Regular Rhythm, S1/S2, S4, Systolic Murmur (Murmur of aortic sclerosis second heart sound appears preserved) Lungs: Present: Normal Exam (Suboptimal effort) Neuro: Present: Cranial Nerve 2-12 Intact Abdomen: Present: Soft, Tender, Distended, Bowel Diversion (Present but diminished no peritoneal signs) Skin: Present: Clear Extremities: Absent: Edema Result/EKG - Labs CBC & BMP: 10/27/16 00:12 10/27/16 00:12 Labs: Laboratory Results - last 24 hr 10/27/16 10/27/16 10/27/16 00:12 00:12 00:12 WBC 13.1 H D RBC 5.17 Hgb 11.6 L D Hct 36.3 MCV 70.2 L MCH 22 L MCHC 32.0 RDW 15.4 Plt Count 223 MPV 10.4 Neut % (Auto) 87.4 H Lymph % (Auto) 5.1 L [place] % (Auto) 6.0 Eos % (Auto) 0.5 Baso % (Auto) 0.2 Neut # (Auto) 11.4 H Lymph # (Auto) 0.7 L [place] # (Auto) 0.8 Eos # (Auto) 0.1 Baso # (Auto) 0.0 Total Counted 100 Immature Gran % 0.8 Nucleated RBC % 0.0 Immature Gran # 0.11 Segmented Neutrophils 86 H Lymphocytes 11 L Monocytes 3 Nucleated RBCs # 0.00 Platelet Estimate Normal Immature Plt Fraction 0.0 Target Cells Few Ovalocytes 1+ Sodium 144 Potassium 4.4 Chloride 104 Carbon Dioxide 27 Anion Gap 17.4 H BUN 32 H Creatinine 2.10 H GFR Calculation 25 BUN/Creatinine Ratio 15.00 Glucose 188 H Calculated Osmolality 297.8 Calcium 9.4 Total Bilirubin 0.40 AST 19 ALT 22 Alkaline Phosphatase 99 Total Protein 7.0 Albumin 3.2 L Globulin 3.8 H Albumin/Globulin Ratio 0.8 L Lipase 76.0 D Urine Color Yellow Urine Appearance Slightly hazy Urine pH 5.0 Ur Specific [place] 1.018 Urine Protein 30 Urine Glucose (UA) Negative Urine Ketones Negative Urine Blood Negative Urine Nitrate Negative Urine Bilirubin Negative Urine Urobilinogen 2.0 H Urine Leukocytes Negative Urine WBC 2 Ur Squamous Epith Cells Occasional Urine Bacteria Few Hyaline Casts 12 Granular Casts 2 Urine Mucus Occasional Ur Culture Indicated? Not indicated - EKG EKG results: interpreted by me (Sinus tachycardia with nonspecific ST segment changes PACs and PVCs were rare) Quality Measures - Stroke Symptom Onset Unknown: No Specialty Discharge - Follow Up or Referrals
[2016-10-27] MEDS ORDERED: SODIUM PHOSPHATE ENEMA 133 ML BOTTLE RECTAL ONE (11:19)
--- NOTE | 2016-10-27 11:22 | General Surgery Consult Note ---
Assessment and Plan - Time spent with patient Time spent with patient: Less than 30 minutes (1) Ileus Status: Acute Assessment and plan: This may present a postprocedural ileus but could also be an element of constipation. I reviewed her films and she appears to have stool throughout her colon. She feels like she needs to have a bowel movement. We will try some enemas today and I will hold off placing a nasogastric tube at this point. Current Visit: No History of Present Illness Chief complaint: Distended abdomen History of present illness: Ms. Pond is a 81 year old female Who for several days has had increasing abdominal distention and a feeling like she needs to have a bowel movement. Last bowel movement was several days ago. She has still been passing flatus. She has not had vomiting but has had nausea. She is not having fever or chills. Her pain is mild and intermittent. She does not know of aggravating or alleviating. She recently had a percutaneous angioplasty and stent placement in her iliacs. Home Medications Medication Instructions Recorded Confirmed Type Aspirin [Ecotrin] 81 mg PO DAILY 01/12/15 10/27/16 History Carvedilol [Coreg] 6.25 mg PO Q12HR 01/12/15 10/27/16 History Dexlansoprazole [Dexilant] 60 mg PO DAILY 01/12/15 10/27/16 History Gabapentin 100 mg PO TID 01/12/15 10/27/16 History Rosuvastatin Calcium [Crestor] 40 mg PO DAILY 01/12/15 10/27/16 History Insulin NPH/Regular 70/30 [HumuLIN 20 unit SUBCUT QAM 01/16/15 10/27/16 History 70/30] Insulin NPH/Regular 70/30 [HumuLIN 20 unit SUBCUT QPM 01/16/15 10/27/16 History 70/30] Ferrous Sulfate 325 mg PO DAILY 11/07/15 10/27/16 History Amlodipine Besylate 5 mg PO DAILY 08/13/16 10/27/16 History Ticagrelor [Brilinta] 90 mg PO BID 08/13/16 10/27/16 History Cilostazol 100 mg PO BID 10/15/16 10/27/16 History Cyanocobalamin/Folic Acid [Vitamin 1 tablet SL DAILY 10/15/16 10/27/16 History Q83-Ngmrr Acid Tablet] HYDROcodone/ACETAMIN 7.5-325 1 tablet PO BID PRN 10/15/16 10/27/16 History [[place] 7.5-325] Valsartan/Hydrochlorothiazide 0.5 tablet PO DAILY 10/15/16 10/27/16 History [Valsartan-Hctz 320-25 mg Tab] Benazepril HCl 40 mg PO DAILY 10/22/16 10/27/16 History Magnesium Oxide 400 mg PO DAILY 10/22/16 10/27/16 History Sitagliptin Phos/Metformin HCl 2 each PO DAILY W/SUPPER 10/22/16 10/27/16 History [Janumet 50-1,000 mg Tablet] Ondansetron Odt Tab [Zofran Odt] 4 mg PO Q4H PRN #10 tablet 10/23/16 10/27/16 Rx Allergies Allergy/AdvReac Type Severity Reaction Status Date / Time No Known Allergies Allergy Verified 08/13/16 09:40 Medical,Surgical,& Family Hx - Medical History Cardio: History of: CAD, Hypertension, [place] (DR MORE), PVD (right leg) Neurology: History of: Cerebrovascular Accident (May 2012) No history of: Seizures HEENT: History of: Eye Problem (CATARACTS), Dental Problems (reports upper and lower dentures left at home) Endocrine: History of: Diabetes Mellitus (IDDM), Diabetes Mellitus (NIDDM), Dyslipidemia Respiratory: History of: Obstructive Sleep Apnea (reports currently machine is not working) Gastrointestinal: History of: GERD, GI Problems (Colon ca) Musculoskeletal: History of: Musculoskeletal Problems (reports history of 3 back surgeries for disc problems) Hematology: History of: Anemia - Surgical History Cardiac Surgeries: Sugical HX of: Cardiac Catheterization (RCA AND LAD stent) Thoracic Surgeries: Patient denies;: Organ Transplant HEENT Surgeries: Surgical HX of: Eye Surgery (CATARACTS) Abdominal Surgeries: Surgical HX of: Colonoscopy ([facility]), EGD ([facility]) Reproductive Surgeries: Surgical HX of;: Hysterectomy Orthopedic Surgeries: Surgical HX of;: Orthopedic Surgery (3 BACK SURGERYS) - Family History Family History: Reports;: Family Diabetes (daughter), Family Heart Disease (son) , Family Hypertension (daughter and son), Family Stroke (daughter) Denies;: Family Cancer - Social History Smoking Status: Never smoker Frequency of Alcohol Use: None Type of Drug Use: None - Constitutional Constitutional: Absent: anorexia, chills, fever(s), weight loss - Cardiovascular Cardiovascular: Absent: chest pain at rest, chest pain with activity, dyspnea, dyspnea on exertion - Respiratory Respiratory: Absent: dyspnea, hemoptysis, dyspnea on exertion - Gastrointestinal Gastrointestinal: Present: abdominal pain, bloating, constipation, nausea. Absent: cramping, diarrhea, hematemesis, hematochezia, loose stools, vomiting, jaundice - Genitourinary Genitourinary: Absent: hematuria - Musculoskeletal Musculoskeletal: Absent: back pain - Neurological Neurological: Absent: focal weakness, syncope - Endocrine Endocrine: Absent: polyuria Hematologic/Lymphatic: Absent: easy bleeding, easy bruising Exam - Constitutional Vitals: Period Temp Pulse Resp BP Sys/Brown Pulse Ox Last 24 Hr 97.1 F-97.2 F 92-108 17-20 119-137/59-91 92-100 General appearance: no acute distress - Head Head exam: Present: normocephalic - Eye Eye exam: Absent: scleral icterus - ENT Mouth exam: Present: normal voice - Neck Neck exam: Present: trachea midline. Absent: tenderness, thyromegaly - Respiratory Respiratory exam: Present: clear to auscultation bilaterally. Absent: accessory muscle use - Cardiovascular Cardiovascular exam: Present: RRR - GI/Abdominal GI/Abdominal exam: Present: distended, hypoactive bowel sounds, soft. Absent: guarding, mass, tenderness, rebound - Neurological Exam Neurological exam: Present: alert, oriented X3. Absent: motor sensory deficit Speech: Present: normal - Skin Skin exam: Present: normal color Quality Measures - Stroke Symptom Onset Unknown: No Results - Labs CBC & BMP: 10/27/16 00:12 10/27/16 00:12 Lab Results: I have reviewed the past 24 hour labs - Diagnostic Findings Procedure: KUB x-ray: image reviewed by me, report reviewed by me Specialty Discharge - Follow Up or Referrals
[2016-10-28] MEDS: INSULIN LISPRO 100 UNIT/ML SUBCUT SCH ×5 (02:49→21:25)
[2016-10-28] MEDS: SODIUM CHLORIDE 0.45% 1,000 ML IV SCH ×4 (02:51→21:26)
[2016-10-28 05:48] LABS: Basophils % 0.3 % (0.0-0.8); Eosinophils # 0.2 10*3/uL (0.0-0.87); Eosinophils % 2.3 % (0.00-10.9); Hematocrit 28.4 VOL% (35.7-47.0); Immature Granulocytes % 0.4 %; Immature Granulocytes Absolute 0.03 #; Lymphocytes # 1.2 10*3/uL (1.4-4.0); Lymphocytes % 17.4 % (21.3-54.2); Mean Corpuscular HGB Conc 31.7 GM/DL (32-36); Mean Corpuscular Hemoglobin 22 PG (27-34); Mean Corpuscular Volume 69.4 FL (87-102); Mean Platelet Volume 10.7 FL (9.6-12.0); Monocytes # 0.6 10*3/uL (0.11-0.8); Monocytes % 9.1 % (1.7-12.7); Neutrophils % 70.5 % (38.7-73.9); Platelet Count 204 T/CUMM (130-400); Red Blood Count 4.09 MC/CUMM (3.8-5.5); Red Cell Distribution Width 14.8 % (9.3-17.3); White Blood Count 7.1 T/CUMM (4-12)
--- NOTE | 2016-10-28 06:18 | Cardiology Progress Note ---
Assessment and Plan (1) PVD (peripheral vascular disease) Status: Chronic Current Visit: No (2) Ileus Status: Acute Current Visit: No (3) Coronary artery disease Status: Chronic Current Visit: No Qualifiers: Coronary Disease-Associated Artery/Lesion type: [place] artery [place] vs. transplanted heart: [place] heart Associated angina: without angina Qualified Code(s): I25.10 - Atherosclerotic heart disease of [place] coronary artery without angina pectoris (4) Hypertension Status: Chronic Current Visit: No (5) Dyslipidemia Status: Chronic Current Visit: No (6) Obstructive sleep apnea Status: Chronic Current Visit: No (7) Type 2 diabetes mellitus Status: Chronic Current Visit: No (8) Acute kidney injury Status: Acute Assessment and plan: Likely multifactorial volume contraction and recent contrast exposure most likely agree with hydration. Labs pending this morning. Current Visit: Yes (9) Peripheral vascular disease Status: Chronic Current Visit: Yes (10) Cardiomyopathy Status: Chronic Current Visit: Yes Cardiology - PN: Subj Interval history: Ms. Pond states that she feels better this morning she has no specific complaint she denies any chest pain. Her labs this morning are pending. Appear to be no active cardiac issues at this time. Have nothing further to add and I will sign off. Please call the [facility] consult DrElzbieta if needed. Her primary plastic surgeon is Dr. Grady. Exam (Progress Note) - Constitutional Vitals: Period Temp Pulse Resp BP Sys/Brown Pulse Ox Last 24 Hr 96.8 F-98.7 F 69-101 16-18 115-142/52-91 92-98 - Eye Eye exam: Present: EOMI - Respiratory Respiratory exam: Present: rhonchi - Cardiovascular Cardiovascular exam: Present: regular rate and rhythm (3/6 murmur of aortic sclerosis) Result/EKG - Labs CBC & BMP: 10/28/16 04:55 10/27/16 00:12 Labs: Laboratory Results - last 24 hr 10/27/16 10/27/16 10/27/16 05:15 07:09 11:46 WBC RBC Hgb Hct MCV MCH MCHC RDW Plt Count MPV Neut % (Auto) Lymph % (Auto) [place] % (Auto) Eos % (Auto) Baso % (Auto) Neut # (Auto) Lymph # (Auto) [place] # (Auto) Eos # (Auto) Baso # (Auto) Immature Gran % Nucleated RBC % Immature Gran # Nucleated RBCs # Immature Plt Fraction POC Glucose 230 H 207 H 178 H 10/27/16 10/27/16 10/28/16 15:42 20:57 04:55 WBC 7.1 D RBC 4.09 D Hgb 9.0 L D Hct 28.4 L MCV 69.4 L MCH 22 L MCHC 31.7 L RDW 14.8 Plt Count 204 MPV 10.7 Neut % (Auto) 70.5 Lymph % (Auto) 17.4 L [place] % (Auto) 9.1 Eos % (Auto) 2.3 Baso % (Auto) 0.3 Neut # (Auto) 5.0 Lymph # (Auto) 1.2 L [place] # (Auto) 0.6 Eos # (Auto) 0.2 Baso # (Auto) 0.0 Immature Gran % 0.4 Nucleated RBC % 0.0 Immature Gran # 0.03 Nucleated RBCs # 0.00 Immature Plt Fraction 0.0 POC Glucose 168 H 129 H Quality Measures - Stroke Symptom Onset Unknown: No Specialty Discharge - Follow Up or Referrals
[2016-10-28 06:33] LABS: Albumin 2.4 G/DL (3.4-5.0); Bilirubin,Total 0.9 MG/DL (0.2-1.0); Calcium 8.6 MG/DL (8.5-10.1); Osmolality,Calculated 285.3 MOS/KG (273-304); Potassium 3.9 MMOL/L (3.5-5.1); Total Protein 5.3 G/DL (6.4-8.3)
[2016-10-28] MEDS: HEPARIN 5,000 UNIT/1 ML VIAL SUBCUT SCH ×3 (06:37→21:25)
[2016-10-28] MEDS: ASPIRIN EC 81 MG TABLET PO SCH (08:54)
[2016-10-28] MEDS: TICAGRELOR 90 MG TABLET PO SCH ×2 (08:54→21:24)
[2016-10-28] MEDS ORDERED: GLUCAGON 1 MG VIAL IM PRN (09:57)
[2016-10-28] MEDS ORDERED: DEXTROSE 50% 25 GM/50 ML VIAL IV PRN (09:57)
--- NOTE | 2016-10-28 10:02 | Hospitalist Progress Note ---
Assessment and Plan (1) Ileus Status: Acute Assessment and plan: Impression: 1. Probable postprocedure ileus. This appears to have resolved 2. Acute kidney injury, likely due to recent dye load. This is improving 3. Generalized atherosclerosis 4. Type II DM Plan: Advance diet. Follow kidney function. Hope to discharge tomorrow. This note was completed using [employer] voice recognition software. There may be senior benefits manager errors as a result. Current Visit: No Hospitalist: Subjective Interval history: Follow-up acute kidney injury and type II DM. The patient says that she feels better. She says that she is hungry, and wants to try some solid food. Creatinine has come down with volume resuscitation. Exam - Constitutional Vitals: Period Temp Pulse Resp BP Sys/Brown Pulse Ox Last 24 Hr 96.8 F-98.7 F 69-101 16-20 115-142/52-79 94-98 Vital signs are noted above. Heart is regular with no murmur. Lungs are clear with no rales wheezes. Abdomen is soft without any significant mass or tenderness. She is awake and alert. Results - Labs CBC & BMP: 10/28/16 04:55 10/28/16 04:55 Lab Results: I have reviewed the past 24 hour labs Quality Measures - Stroke Symptom Onset Unknown: No Specialty Discharge - Follow Up or Referrals
--- NOTE | 2016-10-28 12:49 | General Surgery Progress Note ---
Assessment and Plan - Time spent with patient Time spent with patient: Less than 30 minutes (1) Ileus Status: Acute Assessment and plan: This may present a postprocedural ileus but could also be an element of constipation. I reviewed her films and she appears to have stool throughout her colon. She feels like she needs to have a bowel movement. We will try some enemas today and I will hold off placing a nasogastric tube at this point. 10/28: Her abdominal symptoms have completely resolved. She is tolerating a diet and had a large bowel movement after her enemas yesterday. She feels much better and feels that she is back to her baseline. I do not see any need for surgical intervention will sign off the case for now. Please feel free to give me a call if I can be of further help. Current Visit: No Subjective Patient reports: Present: feels better, bowel movement. Absent: still having pain, nausea, vomiting Exam - Constitutional Vitals: Period Temp Pulse Resp BP Sys/Brown Pulse Ox Last 24 Hr 96.8 F-98.6 F 69-101 16-20 119-142/52-79 94-98 General appearance: no acute distress - GI/Abdominal GI/Abdominal exam: Present: soft. Absent: distended, tenderness, rebound Results - Labs CBC & BMP: 10/28/16 04:55 10/28/16 04:55 Lab Results: I have reviewed the past 24 hour labs Quality Measures - Stroke Symptom Onset Unknown: No Specialty Discharge - Follow Up or Referrals
[2016-10-29] MEDS: HEPARIN 5,000 UNIT/1 ML VIAL SUBCUT SCH (05:59)
[2016-10-29] MEDS: SODIUM CHLORIDE 0.45% 1,000 ML IV SCH (06:04)
[2016-10-29] MEDS: INSULIN LISPRO 100 UNIT/ML SUBCUT SCH ×2 (08:06→12:31)
[2016-10-29] MEDS: ASPIRIN EC 81 MG TABLET PO SCH (08:43)
[2016-10-29] MEDS: TICAGRELOR 90 MG TABLET PO SCH (08:43)
--- NOTE | 2016-10-29 09:03 | Discharge Summary ---
Hospital Course - Hospital Course Hospital Course: Mrs Pond presented with nausea and vomiting after procedure. She was constipated and required enemas for relief. Her nausea resolved and she is ready for discharge. - Time spent with patient Time with patient DS: Less than 30 minutes Diagnosis - Discharge Diagnosis (1) Ileus Status: Resolved Specialty Discharge - Follow Up or Referrals Follow up with: Robe Jerome MD [Physician] - 2 Weeks Kade Grady MD [Physician] - 11/06/16 8:30 am (move appt for tomorrow to next week. F/U BP meds, chest pain, PVD w stent) Discharge Plan - Discharge Data Disposition: Home Health Service Condition at Discharge: Stable Discharge Diet: diabetic diet, heart healthy Activity: resume usual activities as tolerated - Discharge Medications Continue Carvedilol [Coreg] 6.25 mg PO Q12HR Dexlansoprazole [Dexilant] 60 mg PO DAILY Gabapentin 100 mg PO TID Aspirin [Ecotrin] 81 mg PO DAILY Insulin NPH/Regular 70/30 [HumuLIN 70/30] 20 unit SUBCUT QAM Insulin NPH/Regular 70/30 [HumuLIN 70/30] 20 unit SUBCUT QPM Ferrous Sulfate 325 mg PO DAILY Ticagrelor [Brilinta] 90 mg PO BID HYDROcodone/ACETAMIN 7.5-325 [[place] 7.5-325] 1 tablet PO BID PRN PRN Reason: Pain Cilostazol 100 mg PO BID Cyanocobalamin/Folic Acid [Vitamin Z04-Asqbg Acid Tablet] 1 tablet SL DAILY Sitagliptin Phos/Metformin HCl [Janumet 50-1,000 mg Tablet] 2 each PO DAILY W /SUPPER Ondansetron Odt Tab [Zofran Odt] 4 mg PO Q4H PRN #10 tablet PRN Reason: Nausea Discontinued Rosuvastatin Calcium [Crestor] 40 mg PO DAILY Amlodipine Besylate 5 mg PO DAILY Benazepril HCl 40 mg PO DAILY Valsartan/Hydrochlorothiazide [Valsartan-Hctz 320-25 mg Tab] 0.5 tablet PO DAILY Magnesium Oxide 400 mg PO DAILY - Follow Up or Referral Follow Up: Robe Jerome MD [Physician] - 2 Weeks Kade Grady MD [Physician] - 11/06/16 8:30 am (move appt for tomorrow to next week. F/U BP meds, chest pain, PVD w stent) - Forms/Instructions Instructions: Constipation (DC), Peripheral Vascular Disorders (DC) Exam - Constitutional Vitals: Period Temp Pulse Resp BP Sys/Brown Pulse Ox Last 24 Hr 97.6 F-98.1 F 73-82 16-18 128-141/62-74 95-99 General appearance: normal weight, no acute distress - Respiratory Respiratory exam: Present: clear to auscultation bilaterally - Cardiovascular Cardiovascular exam: Present: regular rate and rhythm - GI/Abdominal GI/Abdominal exam: Present: normal bowel sounds, soft. Absent: tenderness - Extremities Exam Extremities exam: Absent: edema Discharge Results Labs on day of discharge: Labs from last 24 hours 10/29/16 10/28/16 10/28/16 07:23 20:43 15:41 POC Glucose 136 H 221 H 129 H 10/28/16 10/28/16 12:49 07:10 POC Glucose 253 H 146 H DS: Provider Date of admission: 10/27/16 04:24 Primary care physician: . No PCP Attending physician on admission: Sampson Pa MD Consults: 10/27/16 04:24 Consult to Physician [CONS] Routine Comment: Int OBSTRUCTION Consulting Provider: Nathen Fermin III. Consult to Specialist Group: Surgery When should Consulting Provider be notified: In am 10/27/16 04:49 Consult to Physician [CONS] Routine Comment: recent stent placement Consulting Provider: Consult to Specialist Group: Cardiology When should Consulting Provider be notified: In am Date Notified: 10/27/16 Time Notified: 08:10 Consult Notification Comment: spoke with spray drier operator helper, she spoke with Dr tolbert and he said that he will be here in a little bit Discharging clinician: Kaitlyn Garcia MD
[2016-10-29 12:48] VITALS: BP 153/64
== END 2016-10-29 12:51 | disposition home health service (06) | DRG 389 ==
LOC: EDBD → EDUNIT# → N.ED 23:34 → N.EDINP 10-27 04:24 → SUATTDRO 10-27 04:24 → N.5E 10-27 04:40
PROVIDERS: ADMIT Internal Medicine; ATTEND Internal Medicine

== ENCOUNTER 2016-11-16 14:10 | Inpatient (IN) ==
--- NOTE | 2016-11-16 15:01 | EKG Report ---
Stationary ECG Study [facility] ER Test Date: 11/16/2016 2:19:37 PM Pat Name: ESEQUIEL GUTIERREZ Department: Room: Gender: F Employee Relations Advisor: : [id number] Requested by: Suman Hernandez Order Number: [id number] Reading MD: MIGUEL ANGEL MAYERS Intervals [place] Rate: 86 P: 56 NV: 198 QRS: -9 QRSD: 80 T: 8 QT: 354 QTc: 398 Interpretive Statements SINUS RHYTHM WITH FREQUENT SUPRAVENTRICULAR PREMATURE COMPLEXES LOW QRS VOLTAGE IN PRECORDIAL LEADS POSSIBLE ANTERIOR MYOCARDIAL INFARCTION, PROBABLY OLD ABNORMAL RHYTHM ECG Electronically Signed On 11-16-16 18:21:26 CDT by MIGUEL ANGEL MAYERS [email or web address]
--- NOTE | 2016-11-16 15:27 | CT Report ---
Referring physician: Suman Hernandez Exam: CT brain without contrast Date: 11/16/2016 Comparison: 05/13/2012 Reason: Syncope Technique: Axial images of the head were obtained without the use of contrast. Total DLP was 1012.10 mGy*cm. Findings: No hydrocephalus or midline shift is present. There is no evidence of an acute infarction, recent intracranial hemorrhage or abnormal mass effect. Persistent atrophy and diffuse cerebral hypodensities with arterial calcifications. Possible chronic right frontal lobe infarction. The osseous structures appear intact. The mastoid air cells and visualized paranasal sinuses are clear. Impression: No acute intracranial abnormality is identified. Persistent atrophy and microvascular disease with possible chronic right frontal lobe infarction. The CT exam was performed using one or more of the following dose reduction techniques: Automated exposure control and adjustment of the mA and/or kV according to patient size. PROCEDURE INTERPRETED AT [facility] DEPARTMENT OF RADIOLOGY Final Report Signed by: Dr. Patience Okeefe
[2016-11-16 15:42] LABS: Basophils % 0.5 % (0.0-0.8); Eosinophils # 0.1 10*3/uL (0.0-0.87); Eosinophils % 1.7 % (0.00-10.9); Hematocrit 32.9 VOL% (35.7-47.0); Hemoglobin 10.4 GM/DL (12.0-16.0); Immature Granulocytes % 0.3 %; Immature Granulocytes Absolute 0.02 #; Lymphocytes # 1.6 10*3/uL (1.4-4.0); Lymphocytes % 23.8 % (21.3-54.2); Mean Corpuscular HGB Conc 31.6 GM/DL (32-36); Mean Corpuscular Hemoglobin 23 PG (27-34); Mean Corpuscular Volume 71.7 FL (87-102); Mean Platelet Volume 10.1 FL (9.6-12.0); Monocytes # 0.3 10*3/uL (0.11-0.8); Monocytes % 5.2 % (1.7-12.7); Neutrophils # 4.5 10*3/uL (1.4-7.4); Neutrophils % 68.5 % (38.7-73.9); Platelet Count 276 T/CUMM (130-400); Red Blood Count 4.59 MC/CUMM (3.8-5.5); White Blood Count 6.6 T/CUMM (4-12)
[2016-11-16 15:49] LABS: Apearance,Urine CLEAR (Clear); Bacteria,Urine Many /HPF (Few); Bilirubin,Urine Negative (Negative); Blood, Urine Negative (Negative); Glucose,Urine (UA) Negative (Negative); Ketones,Urine Negative (Negative); Mucus,Urine Occasional /LPF (Occasional); Nitrite,Urine Negative (Negative); Protein,Urine Negative; RBC,Urine 1 /HPF (0-4); Squamous Epithelial Cell,Urine Occasional /HPF (0-10); Urine Color Straw (Yellow); Urine Specific Gravity 1.003 (1.001-1.035); Urine Urobilinogen < 2.0 EU/DL (0.2-1.0); WBC,Urine 1 /HPF (0-6)
[2016-11-16 16:08] LABS: Alanine Aminotransferase 13 U/L (13-56); Albumin 3.6 G/DL (3.4-5.0); Alkaline Phosphatase 82 U/L (45-117); Aspartate Amino Transferase 11 U/L (0-37); Bilirubin,Total < 0.39 MG/DL (0.2-1.0); Blood Urea Nitrogen 16 MG/DL (7-18); Calcium 9.2 MG/DL (8.5-10.1); Glucose 115 MG/DL (74-106); Osmolality,Calculated 282.3 MOS/KG (273-304); Potassium 3.9 MMOL/L (3.5-5.1); Sodium 141 MMOL/L (136-145); Total Protein 7.3 G/DL (6.4-8.3); Troponin I Only < 0.015 NG/ML (0.00-0.045)
--- NOTE | 2016-11-16 16:42 | Emergency Department Note ---
Enzo Frey Manpreet, am scribing for, and in the presence of, Suman Hernandez Jr., MD 15:00. Mary Frey Marvin Jr., MD, personally performed the services described in this documentation, ascribed by Alex Giraldo in my presence, and it is both accurate and complete 502 . 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 Pt described this feeling as getting light- headed, dizzy, and "her eyes went out." Pt c/o going blind for a period of 10 minutes but then got better. Pt is currently back to the baseline and reports of feeling better. Pt denies falling during this incident, N/V/D, or any CP. Pt' s PCP is Dr. Garibay. No other pains/complaints reported to the ED. Onset (ago): hour(s) (1 hour BUSINESS OPERATIONS SPECIALIST) Consistency: now resolved Severity: moderate, severe Allergies/Adverse Reactions: Allergies Allergy/AdvReac Type Severity Reaction Status Date / Time No Known Allergies Allergy Verified 08/13/16 09:40 Home Medications: Home Medications Medication Instructions Recorded Confirmed Type Aspirin [Ecotrin] 81 mg PO DAILY 01/12/15 10/27/16 History Carvedilol [Coreg] 6.25 mg PO Q12HR 01/12/15 10/27/16 History Dexlansoprazole [Dexilant] 60 mg PO DAILY 01/12/15 10/27/16 History Gabapentin 100 mg PO TID 01/12/15 10/27/16 History Insulin NPH/Regular 70/30 [HumuLIN 20 unit SUBCUT QAM 01/16/15 10/27/16 History 70/30] Insulin NPH/Regular 70/30 [HumuLIN 20 unit SUBCUT QPM 01/16/15 10/27/16 History 70/30] Ferrous Sulfate 325 mg PO DAILY 11/07/15 10/27/16 History Ticagrelor [Brilinta] 90 mg PO BID 08/13/16 10/27/16 History Cilostazol 100 mg PO BID 10/15/16 10/27/16 History Cyanocobalamin/Folic Acid [Vitamin 1 tablet SL DAILY 10/15/16 10/27/16 History R44-Nizcd Acid Tablet] HYDROcodone/ACETAMIN 7.5-325 1 tablet PO BID PRN 10/15/16 10/27/16 History [[place] 7.5-325] Sitagliptin Phos/Metformin HCl 2 each PO DAILY W/SUPPER 10/22/16 10/27/16 History [Janumet 50-1,000 mg Tablet] Ondansetron Odt Tab [Zofran Odt] 4 mg PO Q4H PRN #10 tablet 10/23/16 10/27/16 Rx Review of System - Review of System 12 point system: reviewed and no additional remarkable complaints except as stated - Review of System Constitutional: Absent: chills, diaphoresis, fever Eyes: Present: vision change ("Eyes went out") Head/Ears/Nose/Throat: Absent: sore throat Respiratory: Absent: cough Cardiovascular: Absent: chest pain Gastrointestinal: Absent: abdominal pain, nausea, vomiting, diarrhea Genitourinary female: Absent: dysuria Neurological: Present: other (Dizziness and light-headed). Absent: headache, weakness, numbness, paresthesias Medical,Surgical,& Family Hx - Medical History Cardio: History of: CAD, Hypertension, [place] (DR MORE), PVD (right leg) Neurology: History of: Cerebrovascular Accident (May 2012) No history of: Seizures HEENT: History of: Eye Problem (CATARACTS), Dental Problems (reports upper and lower dentures left at home) Endocrine: History of: Diabetes Mellitus (IDDM), Diabetes Mellitus (NIDDM), Dyslipidemia Respiratory: History of: Obstructive Sleep Apnea (reports currently machine is not working) Gastrointestinal: History of: GERD, GI Problems (Colon ca) Musculoskeletal: History of: Musculoskeletal Problems (reports history of 3 back surgeries for disc problems) Hematology: History of: Anemia - Surgical History Cardiac Surgeries: Sugical HX of: Cardiac Catheterization (RCA AND LAD stent) Thoracic Surgeries: Patient denies;: Organ Transplant HEENT Surgeries: Surgical HX of: Eye Surgery (CATARACTS) Abdominal Surgeries: Surgical HX of: Colonoscopy ([facility]), [facility]) Reproductive Surgeries: Surgical HX of;: Hysterectomy Orthopedic Surgeries: Surgical HX of;: Orthopedic Surgery (3 BACK SURGERYS) - Family History Family History: Reports;: Family Diabetes (daughter), Family Heart Disease (son) , Family Hypertension (daughter and son), Family Stroke (daughter) Denies;: Family Cancer - Social History Smoking Status: Former smoker Frequency of Alcohol Use: None Type of Drug Use: None Exam Physical Examination: General: Well-developed well-nourished, no apparent distress. Head: Normocephalic, atraumatic. Eyes: PERRLA, EOMI. Nose: No obvious acute deformities or discharge. Mouth: No obvious acute injury. Neck: Full range of motion without obvious pain. No midline tender to palpation. Lymphatic: no significant lymphadenopathy noted. Lungs: Clear to auscultation bilaterally, normal and equal air movement bilaterally, no obvious rales or wheezing. Heart: regular rate and rhythm, no obvious mummers. Abdomen: Soft nontender, nondistended, normal active bowel sounds. Skin: No obivous acute lesions noted Musculoskeletal: No gross deformities. Neurological: No focal findings, cranial nerves II through XII grossly normal. Equal analytics lead strength and leg strength which are all normal. No slurred speech Psychiatric: Appropriate mood.. : Deferred Vital Signs: Vital Signs Temperature 98.6 F 11/16/16 14:15 Pulse Rate 76 11/16/16 14:15 Respiratory Rate 18 11/16/16 14:21 Blood Pressure 150/68 11/16/16 14:15 O2 Sat by Pulse Oximetry 99 11/16/16 14:15 Course Course Narrative: Differential diagnosis, cardiac arrhythmia, TIA, near syncope, hyperglycemia - Reevaluation(s) Reevaluation #1: Patient unchanged and asymptomatic now, I discussed this patient with the hospitalist service and they will come to the ER and admit her. Time: 16:40 Results - Labs CBC & BMP: 11/16/16 15:17 11/16/16 15:17 Lab Results: I have reviewed the patients labs Labs: Laboratory Tests 11/16/16 15:17 WBC 6.6 RBC 4.59 Hgb 10.4 L Hct 32.9 L MCV 71.7 L MCH 23 L MCHC 31.6 L RDW 17.0 Plt Count 276 MPV 10.1 Neut % (Auto) 68.5 Lymph % (Auto) 23.8 [place] % (Auto) 5.2 Eos % (Auto) 1.7 Baso % (Auto) 0.5 Neut # (Auto) 4.5 Lymph # (Auto) 1.6 [place] # (Auto) 0.3 Eos # (Auto) 0.1 Baso # (Auto) 0.0 Immature Gran % 0.3 Nucleated RBC % 0.0 Immature Gran # 0.02 Nucleated RBCs # 0.00 Immature Plt Fraction 0.0 Laboratory Tests 11/16/16 11/16/16 15:17 15:40 WBC 6.6 RBC 4.59 Hgb 10.4 L Hct 32.9 L MCV 71.7 L MCH 23 L MCHC 31.6 L RDW 17.0 Plt Count 276 MPV 10.1 Neut % (Auto) 68.5 Lymph % (Auto) 23.8 [place] % (Auto) 5.2 Eos % (Auto) 1.7 Baso % (Auto) 0.5 Neut # (Auto) 4.5 Lymph # (Auto) 1.6 [place] # (Auto) 0.3 Eos # (Auto) 0.1 Baso # (Auto) 0.0 Immature Gran % 0.3 Nucleated RBC % 0.0 Immature Gran # 0.02 Nucleated RBCs # 0.00 Immature Plt Fraction 0.0 Urine Color Straw Urine Appearance Clear Urine pH 5.0 Ur Specific [place] 1.003 Urine Protein Negative Urine Glucose (UA) Negative Urine Ketones Negative Urine Blood Negative Urine Nitrate Negative Urine Bilirubin Negative Urine Urobilinogen < 2.0 H Urine Leukocytes Negative Urine RBC 1 Urine WBC 1 Ur Squamous Epith Cells Occasional Urine Bacteria Many Urine Mucus Occasional Ur Culture Indicated? Not indicated Laboratory Tests 11/16/16 15:17 Sodium 141 Potassium 3.9 Chloride 108 H Carbon Dioxide 24 Anion Gap 12.9 BUN 16 Creatinine 1.00 GFR Calculation 61 BUN/Creatinine Ratio 16.00 Glucose 115 H Calculated Osmolality 282.3 Calcium 9.2 Total Bilirubin < 0.39 AST 11 ALT 13 Alkaline Phosphatase 82 Troponin I < 0.015 Total Protein 7.3 Albumin 3.6 Globulin 3.7 H Albumin/Globulin Ratio 0.9 L - EKG EKG results: interpreted by WILMER (Heart rate 86, normal sinus rhythm, narrow complex QRS complexes without obvious acute changes.) - Diagnostic Findings Procedure: CT: report reviewed by me, image reviewed by me (CT Brain w/o con: No acute intracranial abnormality is identified. Persistent atrophy and microvascular disease with possible chronic right frontal lobe infarction.) Disposition Clinical Impression: Near syncope, Acute vision changes Case discussed with: patient, patient's family Disposition: Still a Patient Condition: Stable Time of Disposition: 16:41
[2016-11-16] MEDS ORDERED: ONDANSETRON ODT 4 MG TABLET PO PRN (17:10)
[2016-11-16] MEDS ORDERED: SODIUM CHLORIDE 0.9% 1,000 ML IV ONE (17:36)
--- NOTE | 2016-11-16 17:44 | Hospitalist History & Physical ---
Assessment and Plan (1) Near syncope Status: Acute Assessment and plan: carotid doppler, recent echo mild diastolic dysfunction is on cindy/diuretics, and concerned about low blood sugar, most likely vasavagal Current Visit: Yes (2) Hypertension Status: Chronic Assessment and plan: check orthostatic, hold cindy, cont coreg Current Visit: No (3) Peripheral vascular disease Status: Chronic Assessment and plan: s/p stent to leg in September 2016, cont zontivity Current Visit: No (4) Type 2 diabetes mellitus Status: Chronic Assessment and plan: hgb A1c, hold insulin, ISC Current Visit: No History of Present Illness Chief complaint: presyncope History of present illness: Ms. Pond is a 81 year old female with history of diabetes, stroke and hypertension presents to the emergency room after sitting on her porch and almost passing out presyncope in nature she said that she felt a little nauseated and a little dizzy and then she was blind for a few seconds but never actually passed out. She does live with her family she does not live alone. She is complained of dizziness last week her son said. Sounds like a vagal episode there is no evidence on physical exam of stroke whatsoever. Patient will be observed overnight checked for orthostatics and sent home in the morning. Home Medications Medication Instructions Recorded Confirmed Type Aspirin [Ecotrin] 81 mg PO DAILY 01/12/15 11/16/16 History Carvedilol [Coreg] 6.25 mg PO Q12HR 01/12/15 11/16/16 History Dexlansoprazole [Dexilant] 60 mg PO DAILY 01/12/15 11/16/16 History Gabapentin 100 mg PO TID 01/12/15 11/16/16 History Insulin NPH/Regular 70/30 [HumuLIN 20 unit SUBCUT QAM 01/16/15 11/16/16 History 70/30] Insulin NPH/Regular 70/30 [HumuLIN 20 unit SUBCUT QPM 01/16/15 11/16/16 History 70/30] Ferrous Sulfate 325 mg PO DAILY 11/07/15 11/16/16 History Cilostazol 100 mg PO BID 10/15/16 11/16/16 History Sitagliptin Phos/Metformin HCl 2 each PO DAILY W/SUPPER 10/22/16 10/27/16 History [Janumet 50-1,000 mg Tablet] Rosuvastatin Calcium [Crestor] 40 mg PO DAILY 11/16/16 11/16/16 History Valsartan/Hydrochlorothiazide 1 each PO DAILY 11/16/16 11/16/16 History [Diovan Hct 320-25 mg Tablet] Vorapaxar Sulfate [Zontivity] 2.08 mg PO DAILY 11/16/16 11/16/16 History amLODIPine [Norvasc] 5 mg PO DAILY 11/16/16 11/16/16 History Allergies Allergy/AdvReac Type Severity Reaction Status Date / Time No Known Allergies Allergy Verified 08/13/16 09:40 Medical,Surgical,& Family Hx - Medical History Cardio: History of: CAD, Hypertension, [place] (DR MORE), PVD (right leg) Neurology: History of: Cerebrovascular Accident (May 2012) No history of: Seizures HEENT: History of: Eye Problem (CATARACTS), Dental Problems (reports upper and lower dentures left at home) Endocrine: History of: Diabetes Mellitus (IDDM), Diabetes Mellitus (NIDDM), Dyslipidemia Respiratory: History of: Obstructive Sleep Apnea (reports currently machine is not working) Gastrointestinal: History of: GERD, GI Problems (Colon ca) Musculoskeletal: History of: Musculoskeletal Problems (reports history of 3 back surgeries for disc problems) Hematology: History of: Anemia - Surgical History Cardiac Surgeries: Sugical HX of: Cardiac Catheterization (RCA AND LAD stent), Vascular Access Devices (Stent) Thoracic Surgeries: Patient denies;: Organ Transplant HEENT Surgeries: Surgical HX of: Eye Surgery (CATARACTS) Abdominal Surgeries: Surgical HX of: Colonoscopy ([facility]), EGD ([facility]) Reproductive Surgeries: Surgical HX of;: Hysterectomy Orthopedic Surgeries: Surgical HX of;: Orthopedic Surgery (3 BACK SURGERYS) - Family History Family History: Reports;: Family Diabetes (daughter), Family Heart Disease (son) , Family Hypertension (daughter and son), Family Stroke (daughter) Denies;: Family Cancer - Social History Smoking Status: Former smoker Frequency of Alcohol Use: None Type of Drug Use: None Marital Status: Lives With:: Children Functional capacity: independent ambulation - Constitutional Constitutional: Absent: fatigue, fever(s), headache(s) - EENT Eyes: Present: loss of vision. Absent: blurry vision, diplopia Ears: Present: decreased hearing. Absent: ear discharge Nose, mouth and throat: Absent: headache(s), sore throat - Cardiovascular Cardiovascular: Absent: chest pain at rest, chest pain with activity, dyspnea, dyspnea on exertion, edema - Respiratory Respiratory: Absent: cough, dyspnea, dyspnea on exertion - Gastrointestinal Gastrointestinal: Present: nausea. Absent: constipation, diarrhea, vomiting - Genitourinary Genitourinary: Absent: difficulty urinating, dysuria - Neurological Neurological: Present: confusion, dizziness, memory loss. Absent: focal weakness, headache(s) - Psychiatric Psychiatric: Absent: anxiety, depression - Endocrine Endocrine: Present: fatigue, heat intolerance. Absent: cold intolerance - Hematologic/Lymphatic Hematologic/Lymphatic: Present: easy bleeding, easy bruising Exam - Constitutional Vitals: Period Temp Pulse Resp BP Sys/Brown Pulse Ox Last 24 Hr 98.6 F-98.6 F 76-76 18-18 150-150/68-68 99 General appearance: normal weight, no acute distress - Head Head exam: Present: normal inspection, normocephalic - Eye Eye exam: Present: EOMI. Absent: scleral icterus Pupils: Present: APOORVA, normal accommodation - ENT ENT exam: Present: normal exam, normal external ear exam - Neck Neck exam: Absent: lymphadenopathy, thyromegaly - Respiratory Respiratory exam: Present: clear to auscultation bilaterally. Absent: rhonchi, wheezes - Cardiovascular Cardiovascular exam: Present: regular rate and rhythm. Absent: systolic murmur - GI/Abdominal GI/Abdominal exam: Present: normal bowel sounds, soft. Absent: tenderness - Extremities Exam Extremities exam: Present: normal inspection, normal capillary refill - Neurological Exam Neurological exam: Present: alert, oriented X3, CN II-XII intact, reflexes normal, other (Negative Babinski). Absent: motor sensory deficit - Psychiatric Psychiatric exam: Present: normal affect, normal mood Results - Labs CBC & BMP: 11/16/16 15:17 11/16/16 15:17 Lab Results: I have reviewed the past 24 hour labs - EKG EKG shows: sinus rhythm (PACs) - Diagnostic Findings Procedure: CT: report reviewed by me (Head CT nothing acute atrophy present)
--- NOTE | 2016-11-16 18:18 | XRay Report ---
XR chest 1V portable Indication: Shortness of breath. Chest one view: Comparison 10/25/2016. Lung lungs have decreased with progressive atelectasis. No new infiltrates are shown. Heart size remains normal with continued thoracic aortic tortuosity. Mediastinal contour stable. Impression: Pulmonary hypoinflation with atelectasis. PROCEDURE INTERPRETED AT [facility] DEPARTMENT OF RADIOLOGY Final Report Signed by: Danny Nowak M.D.
[2016-11-16] MEDS ORDERED: GLUCAGON 1 MG VIAL IM PRN (18:30)
[2016-11-16] MEDS ORDERED: DEXTROSE 50% 25 GM/50 ML SYRINGE IV PRN (18:30)
[2016-11-16 18:32] LABS: Barbiturates Screen,Urine Negative (Negative); Benzodiazepines Screen,Urine Negative (Negative); Cannabinoid Screen,Urine Negative (Negative); Opiate Screen,Urine Negative (Negative); Phencyclidine Screen,Urine Negative (Negative)
[2016-11-16] MEDS ORDERED: INSULIN NPH/REGULAR 70/30 100 UNIT/ML SUBCUT SCH (19:00)
[2016-11-16 19:57] LABS: Cholesterol 164 MG/DL (50-200); HDL Cholesterol 66 MG/DL (40-60); Risk Ratio 2.48; Triglycerides 141 MG/DL (2-150); Troponin I Only < 0.015 NG/ML (0.00-0.045); VLDL CHOLESTEROL 28.2 MG/DL
[2016-11-16] MEDS: GABAPENTIN 100 MG CAPSULE PO SCH (20:40)
[2016-11-16] MEDS: CARVEDILOL 6.25 MG TABLET PO SCH (20:40)
[2016-11-16] MEDS: INSULIN LISPRO 100 UNIT/ML SUBCUT SCH (20:40)
[2016-11-16] MEDS: SODIUM CHLORIDE 0.9% 1,000 ML IV SCH (21:14)
[2016-11-17 03:07] LABS: Basophils % 0.4 % (0.0-0.8); Eosinophils # 0.2 10*3/uL (0.0-0.87); Eosinophils % 3.7 % (0.00-10.9); Hematocrit 25.1 VOL% (35.7-47.0); Immature Granulocytes % 0.2 %; Immature Granulocytes Absolute 0.01 #; Lymphocytes # 1.7 10*3/uL (1.4-4.0); Lymphocytes % 32.8 % (21.3-54.2); Mean Corpuscular HGB Conc 31.9 GM/DL (32-36); Mean Corpuscular Hemoglobin 23 PG (27-34); Mean Corpuscular Volume 71.5 FL (87-102); Mean Platelet Volume 10.2 FL (9.6-12.0); Monocytes # 0.4 10*3/uL (0.11-0.8); Monocytes % 7.9 % (1.7-12.7); Neutrophils # 2.8 10*3/uL (1.4-7.4); Platelet Count 214 T/CUMM (130-400); Red Blood Count 3.51 MC/CUMM (3.8-5.5); Red Cell Distribution Width 17.1 % (9.3-17.3); White Blood Count 5.2 T/CUMM (4-12)
[2016-11-17] MEDS: INSULIN LISPRO 100 UNIT/ML SUBCUT SCH ×4 (08:34→20:27)
[2016-11-17] MEDS: CARVEDILOL 6.25 MG TABLET PO SCH ×2 (08:42→17:13)
[2016-11-17] MEDS: GABAPENTIN 100 MG CAPSULE PO SCH ×3 (08:42→20:27)
[2016-11-17] MEDS: ASPIRIN EC 81 MG TABLET PO SCH (08:42)
[2016-11-17] MEDS ORDERED: MAGNESIUM CITRATE 300 ML BOTTLE PO ONE (08:51)
[2016-11-17] MEDS ORDERED: PANTOPRAZOLE 40 MG TABLET PO SCH (09:00)
[2016-11-17] MEDS ORDERED: ASPIRIN EC 81 MG TABLET PO SCH (09:00)
[2016-11-17] MEDS ORDERED: [UNRECOGNIZED DRUG - OTHER] PO SCH (09:00)
[2016-11-17] MEDS ORDERED: INSULIN NPH/REGULAR 70/30 100 UNIT/ML SUBCUT SCH (09:00)
[2016-11-17] MEDS ORDERED: MULTIVITAMIN (BEROCCA) TABLET PO SCH (09:00)
--- NOTE | 2016-11-17 10:19 | Ultrasound Report ---
CAROTID ULTRASOUND Comparison: Syncope.. Findings: Grayscale, color Doppler and pulsed Doppler interrogation of the carotid and vertebral arteries performed. Severity of stenosis based on flow velocity measurements using NASCET criteria. Ultrasound images are captured and stored. Distal right ICA diameter: 6.3 mm Distal left ICA diameter: 4.7 mm Peak systolic flow velocities in centimeters per second are as follows: Right: CCA: 79 Proximal ICA: 114.3 Distal ICA: 105.5 ICA/CCA ratio: 1.4 Left: CCA: 72.1 Proximal ICA: 135.1 Distal ICA:98.9 ICA/CCA ratio: 1.9 External carotid arteries: Both are patent with antegrade flow. Vertebral arteries: Both are patent with antegrade flow. Grayscale and color Doppler images: There are couple of scattered areas of minimal focal plaque deposition identified, with normal color Doppler flow present. Pulse Doppler waveform interrogation: No significant spectral broadening. Impression: 40-60% diameter stenosis left ICA origin. No hemodynamically significant narrowing on the right. PROCEDURE INTERPRETED AT [facility] [place] DEPARTMENT OF RADIOLOGY Final Report Signed by: Danny Nowak M.D.
[2016-11-17] MEDS: VALSARTAN 160 MG TABLET PO SCH (10:24)
[2016-11-17] MEDS ORDERED: SODIUM CHLORIDE 0.9% 250 ML IV PRN (11:39)
--- NOTE | 2016-11-17 11:46 | Hospitalist Progress Note ---
Assessment and Plan (1) Near syncope Status: Acute Assessment and plan: Most likely vasovagal have to rule out GI bleed Current Visit: Yes (2) Hypertension Status: Chronic Assessment and plan: Continue Coreg and Diovan only. Current Visit: No (3) Peripheral vascular disease Status: Chronic Assessment and plan: s/p stent to leg in September 2016, hold Zontivity due to possible bleed Current Visit: No (4) Type 2 diabetes mellitus Status: Chronic Assessment and plan: hgb A1c 9.2, hold insulin, ISC Current Visit: No (5) Constipation Status: Acute Assessment and plan: Mag citrate, guaiac stools Current Visit: Yes (6) Iron deficiency anemia Status: Acute Assessment and plan: 2 units packed red blood cells, iron studies, consult Dr. [place], Protonix twice daily, clear liquids only, may need iron infusion Current Visit: Yes Hospitalist: Subjective Interval history: Patient is not orthostatic in fact her blood pressure goes up when she stands up. Was can let her go home today as she was feeling better and her troponins were negative. She had a near syncope episode. Her hemoglobin however is dropped. I know she is received some hydration but I think it is dropped more than it should and she is also on a new drug called Zontivity which is a blood thinner that was given to her by Dr. Grady after he placed a stent in her groin in SEPTEMBER 2016. Patient was on iron at home which is causes severe constipation. She has a lot of stool that needs to be relieved have given her some mag citrate and we need to guaiac that stool. We will stop her blood thinner and give her blood today and hold her discharge. Her blood sugars have also been running on the lower and she has not received any of her insulin. I am concerned that her blood sugars may be going to low at home. Exam - Constitutional Vitals: Period Temp Pulse Resp BP Sys/Brown Pulse Ox Last 24 Hr 96.3 F-98.6 F 76-87 18-20 119-190/56-90 97-100 Exam: Heart Rate-[RRR] Lungs-[CTAB] GI-[+bs soft, NT] Ext-[no edema] Neuro [Motor 5/5], [alert and oriented times 2] psych [normal mood and affect] General [no acute distress] Results - Labs CBC & BMP: 11/17/16 02:04 11/16/16 15:17 Lab Results: I have reviewed the past 24 hour labs - Diagnostic Findings Procedure: Chest x-ray: report reviewed by me (Pulmonary hypo-inflation with atelectasis.), Ultrasound: report reviewed by me (40-60% stenosis in the left ICA)
[2016-11-17 13:06] LABS: % Iron Saturation 28.1 % (18-50); Ferritin 80.8 ng/ml (8-252)
[2016-11-17] MEDS ORDERED: SITAGLIPTIN PHOS PO SCH (17:00)
[2016-11-17] MEDS ORDERED: [UNRECOGNIZED DRUG - OTHER] PO SCH (17:00)
[2016-11-17] MEDS ORDERED: METFORMIN HCL PO SCH (17:00)
[2016-11-17] MEDS: ROSUVASTATIN CALCIUM 40 MG PO SCH (17:13)
--- NOTE | 2016-11-17 18:56 | Gastrointestinal Consult Note ---
Assessment and Plan (1) Iron deficiency anemia Status: Acute Assessment and plan: This is a patient of Dr. Jose's seen one year ago on 11/10/15. This patient has a partially treated iron deficiency anemia as she is taking a single iron tablet per day. This keeps her blood counts typically up to 30-37% about this admission the hematocrit dropped down to 25.1%. She does not have renal dysfunction. The above drop in hematocrit may have something to do with her weakness. She is certainly getting good acid suppression with the Dexilant that she is taken on a daily basis. Dr. Olivares completed 2 distinct workups for this low-grade anemia back when her hematocrit was about 33% in 2007 and 2008. It has been 8 years since these procedures were completed and is probably reasonable to look again. I will go ahead and place a request for EGD into the endoscopy suite for Dr. Jose's return on Saturday11/19/16. He can decide thereafter if he wants to pursue a colonoscopy the following day depending on the findings of the upper endoscopy. Current Visit: Yes (2) Personal history of colonic polyps Status: Acute Assessment and plan: The patient's last colonoscopy was 04/18/08 at which time she had a single plastic polyp discovered in her cecum, accordingly current recommended guidelines this would not require repeat colonoscopy for 10 years. The patient is developed some interim anemia and might bear looking at again in the near future, depending on the findings of upper endoscopy. Will defer to Dr. Jose concerning this particular patient. Current Visit: Yes (3) Constipation Status: Acute Assessment and plan: Patient states that she has a bowel movement every 1-2 weeks. She may benefit from use of Linzess or MiraLAX on a more regular basis to control this. Currently she uses milk of magnesia on a as needed basis. Might suggest use of Linzess 290 mg daily after the colonoscopy is completed or to be initiated if no colonoscopy is required. Current Visit: Yes (4) Nausea alone Status: Acute Assessment and plan: This may be associated with an underlying gastroparesis or simply systemic illness. The patient does have a hiatal hernia but is also on Dexilant which should be suppressing her acidity nicely. Current Visit: Yes History of Present Illness Chief complaint: Drop in hematocrit from 32% to 25%, GERD History of present illness: Ms. Pond is a 81 year old female who had last seen Dr. Jose back in when she was in the hospital for nausea and vomiting postoperative from a right femoropopliteal bypass. Before that the patient had had 2 previous workups done by Dr. Olivares back in 2007 and more recently in 2008. These included 2 sets of EGD and colonoscopy both done to look for an etiology of the patient's anemia. The most recent EGD having been done on 04/17/08 at which time a small hiatal hernia was noted along with retained food but no bleeding source, the colonoscopy followed on 04/18/08 at which time a single cecal polyp was noted to be hyperplastic was removed and there was left-sided diverticulosis and small internal hemorrhoids noted. Patient is actually done fairly well after the initiation of iron and Dexilant to control her acid in her stomach. She typically gets by with a single iron pill per day but this does make her stools dark. Her hematocrits recently have been ranging between 30.6 and 37.1 including up to the onset of this admission when she was noted to be 32.8% but this is dropped down to 25.1% without gross evidence of bright red blood per rectum or darkening of the stool more than usual. Patient does have some mild nausea but no vomiting she has not had any heartburn as long she takes the Dexilant 60 mg per day. She does not really have any significant abdominal pain per se. Patient has had more recent nausea and vomiting when she had a cardiac catheterization but this was back in 10/22/16. She does have constipation with one bowel but every 1-2 weeks. Home Medications Medication Instructions Recorded Confirmed Type Aspirin [Ecotrin] 81 mg PO DAILY 01/12/15 11/16/16 History Carvedilol [Coreg] 6.25 mg PO Q12HR 01/12/15 11/16/16 History Dexlansoprazole [Dexilant] 60 mg PO DAILY 01/12/15 11/16/16 History Gabapentin 100 mg PO TID 01/12/15 11/16/16 History Insulin NPH/Regular 70/30 [HumuLIN 20 unit SUBCUT QAM 01/16/15 11/16/16 History 70/30] Insulin NPH/Regular 70/30 [HumuLIN 20 unit SUBCUT QPM 01/16/15 11/16/16 History 70/30] Ferrous Sulfate 325 mg PO DAILY 11/07/15 11/16/16 History Cilostazol 100 mg PO BID 10/15/16 11/16/16 History Sitagliptin Phos/Metformin HCl 50 mg PO DAILY W/SUPPER 10/22/16 11/16/16 History [Janumet 50-1,000 mg Tablet] Rosuvastatin Calcium [Crestor] 40 mg PO DAILY 11/16/16 11/16/16 History Valsartan/Hydrochlorothiazide 1 each PO DAILY 11/16/16 11/16/16 History [Diovan Hct 320-25 mg Tablet] Vorapaxar Sulfate [Zontivity] 2.08 mg PO DAILY 11/16/16 11/16/16 History amLODIPine [Norvasc] 5 mg PO DAILY 11/16/16 11/16/16 History Allergies Allergy/AdvReac Type Severity Reaction Status Date / Time No Known Allergies Allergy Verified 08/13/16 09:40 Medical,Surgical,& Family Hx - Medical History Cardio: History of: CAD, Hypertension, [place] (DR MORE), PVD (right leg) Neurology: History of: Cerebrovascular Accident (May 2012) No history of: Seizures HEENT: History of: Eye Problem (CATARACTS), Dental Problems (reports upper and lower dentures left at home) Endocrine: History of: Diabetes Mellitus (IDDM), Diabetes Mellitus (NIDDM), Dyslipidemia Respiratory: History of: Obstructive Sleep Apnea (reports currently machine is not working) Gastrointestinal: History of: GERD, GI Problems (Colon ca) Musculoskeletal: History of: Musculoskeletal Problems (reports history of 3 back surgeries for disc problems) Hematology: History of: Anemia - Surgical History Cardiac Surgeries: Sugical HX of: Cardiac Catheterization (RCA AND LAD stent), Vascular Access Devices (Stent) Thoracic Surgeries: Patient denies;: Organ Transplant HEENT Surgeries: Surgical HX of: Eye Surgery (CATARACTS) Abdominal Surgeries: Surgical HX of: Colonoscopy ([facility]), [facility]GD ([facility]) Reproductive Surgeries: Surgical HX of;: Hysterectomy Orthopedic Surgeries: Surgical HX of;: Orthopedic Surgery (3 BACK SURGERYS) - Family History Family History: Reports;: Family Diabetes (daughter), Family Heart Disease (son) , Family Hypertension (daughter and son), Family Stroke (daughter) Denies;: Family Cancer - Social History Smoking Status: Former smoker Frequency of Alcohol Use: None Type of Drug Use: None Review of systems: Constitutional: Denies fever, chills, and vomiting but does complain of some nausea. Eyes: Denies dry eyes, and scleral icterus HENT: Denies headaches Cardiovascular: Denies acute chest pain and claudication Respiratory: Denies shortness of breath, wheezing, and difficulty breathing, denies cough Gastrointestinal: As noted in the HPI Genitourinary: Denies dysuria and hematuria Neurologic: Denies vision loss, and loss of sensation Musculoskeletal: The patient does have some joint swelling, joint stiffness, and muscular weakness Psychiatric: Denies depression and elena symptoms Heme-Lymph: Denies easy bruising, lymph node enlargement or tenderness, night sweats, excessive bleeding Allergies-immunologic: Denies pruritus and rhinorrhea Exam - Constitutional Vitals: Period Temp Pulse Resp BP Sys/Brown Pulse Ox Last 24 Hr 96.3 F-98.8 F 68-85 18-20 119-190/56-90 96-100 Exam: Constitutional: Well-developed, well-nourished, alert, and in no acute distress Head and face: Head: Normocephalic atraumatic Eyes: Conjunctiva without injection, no gross scleral icterus, pupils equal and round bilaterally Ears: Intact to conversation in both ears Nose: External appearance is normal, nares patent Mouth: Oral mucous membranes moist without erythema dentition completely absent without any dentures in place Neck: Normal appearance, no masses or tenderness, trachea midline Thyroid: Gland midline and appropriate size for age Respiratory: Normal respiratory effort, clear to auscultation without wheezes, rhonchi or rales Cardiovascular: Regular rate and rhythm, normal S1, S2, the exam is without rubs, murmurs or gallops. Gastrointestinal: Nontender to palpation, normal active bowel sounds, tone normal without rigidity or guarding, no masses present, no hepatomegaly, no spleen tip felt. Well-healed midline scar noted in the lower abdomen. Rectal examination showed poor tone stool was present dark brown/black and guaiac negative. Lymphatic: Neck without adenopathy, axilla without lymphadenopathy present Musculoskeletal: Right and left lower extremities with evidence of trace to 1+ edema Skin and subcutaneous tissue: No rashes or ulcerations noted, normal skin turgor, digits and nails without clubbing/cyanosis/deformities. Neurologic: The patient is grossly oriented to person place and time, cranial nerves show tongue movements are normal with normal tongue extrusion midline, light touch sensation is intact. Psychiatric: No hallucinations or delusions are present, does not appear depressed Results - Labs CBC & BMP: 11/17/16 12:24 11/16/16 15:17
[2016-11-17] MEDS: PANTOPRAZOLE 40 MG TABLET PO SCH (20:27)
[2016-11-17] MEDS: SODIUM CHLORIDE 0.9% 1,000 ML IV SCH (21:54)
[2016-11-18 05:43] LABS: Basophils % 0.6 % (0.0-0.8); Eosinophils # 0.2 10*3/uL (0.0-0.87); Eosinophils % 3.4 % (0.00-10.9); Hematocrit 36.6 VOL% (35.7-47.0); Hemoglobin 12.2 GM/DL (12.0-16.0); Immature Granulocytes % 0.2 %; Immature Granulocytes Absolute 0.01 #; Lymphocytes # 1.8 10*3/uL (1.4-4.0); Mean Corpuscular HGB Conc 33.3 GM/DL (32-36); Mean Corpuscular Hemoglobin 25 PG (27-34); Mean Corpuscular Volume 74.5 FL (87-102); Mean Platelet Volume 11.1 FL (9.6-12.0); Monocytes # 0.4 10*3/uL (0.11-0.8); Monocytes % 6.1 % (1.7-12.7); Neutrophils # 4.1 10*3/uL (1.4-7.4); Neutrophils % 62.7 % (38.7-73.9); Platelet Count 237 T/CUMM (130-400); Red Blood Count 4.91 MC/CUMM (3.8-5.5); Red Cell Distribution Width 19.1 % (9.3-17.3); White Blood Count 6.5 T/CUMM (4-12)
[2016-11-18 06:24] LABS: Calcium 8.8 MG/DL (8.5-10.1); Osmolality,Calculated 286.8 MOS/KG (273-304); Potassium 4.1 MMOL/L (3.5-5.1)
[2016-11-18] MEDS: INSULIN LISPRO 100 UNIT/ML SUBCUT SCH ×4 (08:41→20:41)
[2016-11-18] MEDS: PANTOPRAZOLE 40 MG TABLET PO SCH ×2 (08:44→21:22)
[2016-11-18] MEDS: CARVEDILOL 6.25 MG TABLET PO SCH (08:44)
[2016-11-18] MEDS: ROSUVASTATIN CALCIUM 40 MG PO SCH (08:44)
[2016-11-18] MEDS: GABAPENTIN 100 MG CAPSULE PO SCH ×3 (08:44→21:22)
[2016-11-18] MEDS: VALSARTAN 160 MG TABLET PO SCH (08:44)
[2016-11-18] MEDS: ASPIRIN EC 81 MG TABLET PO SCH (08:44)
[2016-11-18] MEDS ORDERED: NON-FORMULARY MEDICATION (Rosuvastatin Calcium [Crestor] 40 MG) PO SCH (09:00)
--- NOTE | 2016-11-18 11:06 | Hospitalist Progress Note ---
Assessment and Plan (1) Near syncope Status: Acute Assessment and plan: Most likely vasovagal no evidence to suggest active bleeding. Current Visit: Yes (2) Iron deficiency anemia Status: Acute Assessment and plan: EGD on Saturday, stool guaiac negative, patient received 2 units packed red blood cells yesterday hemoglobin is stable today. Current Visit: Yes (3) Hypertension Status: Chronic Assessment and plan: Increase Coreg and Diovan. Current Visit: No (4) Peripheral vascular disease Status: Chronic Assessment and plan: s/p stent to leg in September 2016, hold Zontivity until okay per GI Current Visit: No (5) Type 2 diabetes mellitus Status: Chronic Assessment and plan: hgb A1c 9.2, hold off restarting insulin Current Visit: No (6) Constipation Status: Acute Assessment and plan: Having bowel movements Current Visit: Yes Hospitalist: Subjective Interval history: Patient has no complaints today. Her hemoglobin is improved with the blood transfusion to 12.2. The Zontivity is on hold. Her stool was negative for blood. Dr. Birmingham plans to do an EGD on Saturday. Exam - Constitutional Vitals: Period Temp Pulse Resp BP Sys/Brown Pulse Ox Last 24 Hr 97.1 F-98.8 F 65-75 16-20 144-183/66-84 95-100 Exam: Heart Rate-[RRR] Lungs-[CTAB] GI-[+bs soft, NT] Ext-[no edema] Neuro [Motor 5/5], [alert and oriented times 2] psych [normal mood and affect] General [no acute distress] Results - Labs CBC & BMP: 11/18/16 04:25 11/18/16 04:25 Lab Results: I have reviewed the past 24 hour labs Labs: Stool was guaiac negative, recheck 23, iron 73, ferritin 80, TIBC 260,
--- NOTE | 2016-11-18 12:52 | Gastrointestinal Progress Note ---
Assessment and Plan (1) Iron deficiency anemia Status: Acute Assessment and plan: This is a patient of Dr. Jose's seen one year ago on 11/10/15. This patient has a partially treated iron deficiency anemia as she is taking a single iron tablet per day. This keeps her blood counts typically up to 30-37% about this admission the hematocrit dropped down to 25.1%. She does not have renal dysfunction. The above drop in hematocrit may have something to do with her weakness. She is certainly getting good acid suppression with the Dexilant that she is taken on a daily basis. Dr. Olivares completed 2 distinct workups for this low-grade anemia back when her hematocrit was about 33% in 2007 and 2008. It has been 8 years since these procedures were completed and is probably reasonable to look again. I will go ahead and place a request for EGD into the endoscopy suite for Dr. Jose's return on Saturday11/19/16. He can decide thereafter if he wants to pursue a colonoscopy the following day depending on the findings of the upper endoscopy. 11/18/16--the patient is doing well with her solid diet, she is due to undergo upper endoscopy by Dr. Jose tomorrow and for him to make a decision as to whether or not this is an adequate workup considering the drop in hematocrit to 25% down from her usual 30-37%. Her hematocrit is now back up to 36.6 posttransfusion of those 2 units. She is taking Dexilant and this should be adequate for her acid suppression, she is on Protonix twice daily. Current Visit: Yes (2) Personal history of colonic polyps Status: Acute Assessment and plan: The patient's last colonoscopy was 04/18/08 at which time she had a single hyperplastic polyp discovered in her cecum, accordingly current recommended guidelines this would not require repeat colonoscopy for 10 years. The patient is developed some interim anemia and might bear looking at again in the near future, depending on the findings of upper endoscopy. Will defer to Dr. Jose concerning this particular patient. 11/18/16--As noted above. Current Visit: Yes (3) Constipation Status: Acute Assessment and plan: Patient states that she has a bowel movement every 1-2 weeks. She may benefit from use of Linzess or MiraLAX on a more regular basis to control this. Currently she uses milk of magnesia on a as needed basis. Might suggest use of Linzess 290 mg daily after the colonoscopy is completed or to be initiated if no colonoscopy is required. 11/18/16--this patient may require bowel prep and so we will hold off on putting large number of laxatives on board at this time. Will defer to Dr. Jose as to how aggressive he wants to be in treating the constipation. Current Visit: Yes (4) Nausea alone Status: Acute Assessment and plan: This may be associated with an underlying gastroparesis or simply systemic illness. The patient does have a hiatal hernia but is also on Dexilant which should be suppressing her acidity nicely. 11/18/16--Patient seems stable and is no longer having nausea now. Current Visit: Yes Gastroenterology - PN: Subj Interval history: Patient is tolerating her solid diet well, no nausea vomiting, no black stools Exam (Progress Note) - Constitutional Vitals: Period Temp Pulse Resp BP Sys/Brown Pulse Ox Last 24 Hr 97.1 F-98.8 F 65-75 16-20 144-183/66-84 95-100 General appearance: over weight - Head Head exam: Present: normocephalic - Eye Eye exam: Present: EOMI - Respiratory Respiratory exam: Present: clear to auscultation bilaterally. Absent: rhonchi, stridor - Cardiovascular Cardiovascular exam: Present: regular rate and rhythm - GI/Abdominal GI/Abdominal exam: Present: normal bowel sounds, distended, soft. Absent: guarding, tenderness, rebound - Extremities Exam Extremities exam: Absent: edema - Neurological Exam Neurological exam: Present: alert, oriented X3 - Psychiatric Psychiatric exam: Present: normal affect, normal mood - Skin Skin exam: Present: warm Results - Labs CBC & BMP: 11/18/16 04:25 11/18/16 04:25
[2016-11-18] MEDS: CARVEDILOL 12.5 MG TABLET PO SCH (16:43)
[2016-11-19 06:08] LABS: Basophils % 0.4 % (0.0-0.8); Eosinophils # 0.2 10*3/uL (0.0-0.87); Eosinophils % 3.4 % (0.00-10.9); Hematocrit 36.9 VOL% (35.7-47.0); Immature Granulocytes % 0.3 %; Immature Granulocytes Absolute 0.02 #; Lymphocytes # 1.6 10*3/uL (1.4-4.0); Lymphocytes % 23.7 % (21.3-54.2); Mean Corpuscular HGB Conc 32.5 GM/DL (32-36); Mean Corpuscular Hemoglobin 24 PG (27-34); Mean Platelet Volume 10.4 FL (9.6-12.0); Monocytes # 0.4 10*3/uL (0.11-0.8); Monocytes % 6.4 % (1.7-12.7); Neutrophils # 4.4 10*3/uL (1.4-7.4); Neutrophils % 65.8 % (38.7-73.9); Platelet Count 219 T/CUMM (130-400); Red Blood Count 4.92 MC/CUMM (3.8-5.5); White Blood Count 6.7 T/CUMM (4-12)
[2016-11-19 06:52] LABS: Calcium 8.9 MG/DL (8.5-10.1); Magnesium 2.1 MG/DL (1.8-2.4); Osmolality,Calculated 284.1 MOS/KG (273-304); Potassium 4.3 MMOL/L (3.5-5.1)
[2016-11-19] MEDS: INSULIN LISPRO 100 UNIT/ML SUBCUT SCH ×4 (07:40→20:52)
[2016-11-19] MEDS ORDERED: ESMOLOL 100 MG/10 ML VIAL IV ONE (12:14)
[2016-11-19] MEDS ORDERED: ETOMIDATE 20 MG/10 ML VIAL IV ONE (12:14)
[2016-11-19] MEDS ORDERED: LIDOCAINE 2% 5 ML VIAL ONE (12:14)
[2016-11-19] MEDS ORDERED: PROPOFOL 200 MG/20 ML VIAL IV ONE (12:14)
--- NOTE | 2016-11-19 12:17 | History and Physical Update ---
History and Physical Update - Physical Exam Mental Status: alert and oriented Heart: regular rate and rhythm Lung: clear to auscultation Abdomen: within normal limits Vitals: within normal limits History and Physical Changes: History reviewed. 81-year-old female with iron deficiency anemia and no localizing GI symptoms presents for evaluation.
--- NOTE | 2016-11-19 12:23 | Operative Note ---
Date of procedure: 11/19/16 Pre-op diagnosis: Iron deficiency anemia Procedure: Procedure: Esophagogastroduodenoscopy Brief clinical abstract: 81-year-old female presents for evaluation of iron deficiency anemia. She denies any localizing GI symptoms. Indication for procedure: Iron deficiency anemia Endoscopic findings:[After informed consent was obtained, the patient was placed in the left lateral decubitus position. The gastroscope was inserted in the upper esophagus under direct vision with no resistance encountered. Esophageal mucosa appeared normal with squamocolumnar junction sharply demarcated above a small hiatal hernia. The endoscope was advanced in the stomach which was carefully examined including retroflexed view of the cardia and fundus with no abnormality seen. The pyloric channel, duodenal bulb, second and third portion appeared normal. The endoscope was removed and patient appeared to tolerate the procedure well per Impression: Small hiatal hernia-otherwise normal EGD Recommendations: Would plan to do colonoscopy tomorrow. Anesthesia: MAC Surgeon / Physician: Dewey Jose Estimated blood loss: none Specimens: none sent Condition: stable Disposition: post procedure unit Results - Labs CBC & BMP: 11/19/16 04:42 11/19/16 04:42 Discharge Plan - Discharge Medications No Action Carvedilol [Coreg] 6.25 mg PO Q12HR Dexlansoprazole [Dexilant] 60 mg PO DAILY Gabapentin 100 mg PO TID Aspirin [Ecotrin] 81 mg PO DAILY Insulin NPH/Regular 70/30 [HumuLIN 70/30] 20 unit SUBCUT QAM Insulin NPH/Regular 70/30 [HumuLIN 70/30] 20 unit SUBCUT QPM Ferrous Sulfate 325 mg PO DAILY Cilostazol 100 mg PO BID amLODIPine [Norvasc] 5 mg PO DAILY Valsartan/Hydrochlorothiazide [Diovan Hct 320-25 mg Tablet] 1 each PO DAILY Vorapaxar Sulfate [Zontivity] 2.08 mg PO DAILY Rosuvastatin Calcium [Crestor] 40 mg PO DAILY Sitagliptin Phos/Metformin HCl [Janumet 50-1,000 mg Tablet] 50 mg PO DAILY W/ SUPPER - Follow Up or Referral - Forms/Instructions
--- NOTE | 2016-11-19 12:40 | Anesthesia Post-Op ---
Anesthesia Post OP - Post Ansesthetic Evaluation Patient seen in post op: Yes Resp: within normal limits CV: within normal limits Mental: within normal limits Temp: within normal limits [id number]: within normal limits Nausea and Vomiting: within normal limits Pain: within normal limits
[2016-11-19] MEDS: ASPIRIN EC 81 MG TABLET PO SCH (13:39)
[2016-11-19] MEDS: VALSARTAN 160 MG TABLET PO SCH (13:39)
[2016-11-19] MEDS: ROSUVASTATIN CALCIUM 40 MG PO SCH (13:39)
[2016-11-19] MEDS: GABAPENTIN 100 MG CAPSULE PO SCH ×3 (13:40→20:52)
[2016-11-19] MEDS: CARVEDILOL 12.5 MG TABLET PO SCH ×2 (13:40→17:21)
[2016-11-19] MEDS: PANTOPRAZOLE 40 MG TABLET PO SCH ×2 (13:40→20:54)
[2016-11-19] MEDS ORDERED: POLYETHYLENE GLYCOL POWDER 255 GM BOTTLE PO ONE (18:00)
[2016-11-20 05:05] LABS: Basophils % 0.5 % (0.0-0.8); Eosinophils # 0.3 10*3/uL (0.0-0.87); Eosinophils % 3.8 % (0.00-10.9); Hematocrit 41.9 VOL% (35.7-47.0); Hemoglobin 13.4 GM/DL (12.0-16.0); Immature Granulocytes % 0.3 %; Immature Granulocytes Absolute 0.02 #; Lymphocytes # 1.9 10*3/uL (1.4-4.0); Lymphocytes % 23.6 % (21.3-54.2); Mean Corpuscular Hemoglobin 24 PG (27-34); Mean Corpuscular Volume 75.9 FL (87-102); Mean Platelet Volume 9.3 FL (9.6-12.0); Monocytes # 0.6 10*3/uL (0.11-0.8); Monocytes % 7.6 % (1.7-12.7); Neutrophils # 5.1 10*3/uL (1.4-7.4); Neutrophils % 64.2 % (38.7-73.9); Platelet Count 203 T/CUMM (130-400); Red Blood Count 5.52 MC/CUMM (3.8-5.5); Red Cell Distribution Width 19.4 % (9.3-17.3); White Blood Count 7.9 T/CUMM (4-12)
[2016-11-20 05:38] LABS: Calcium 8.7 MG/DL (8.5-10.1); Magnesium 1.8 MG/DL (1.8-2.4)
[2016-11-20] MEDS ORDERED: MAGNESIUM CITRATE 300 ML BOTTLE PO ONE (06:00)
--- NOTE | 2016-11-20 07:39 | Hospitalist Progress Note ---
Assessment and Plan (1) Near syncope Status: Acute Assessment and plan: Impression: 1. Near syncope 2. Type II DM 3. Hypertension 4.: Iron deficiency Plan: She is scheduled for EGD today. We will await GI recommendations. She may be able to go home after endoscopy depending on findings and recommendations. This note was completed using [employer] voice recognition software. There may be emergency department manager errors as a result. Current Visit: Yes Hospitalist: Subjective Interval history: Follow-up near syncope, hypertension, and type II DM. The patient is scheduled for upper endoscopy today. She feels pretty good. We may let her go home after her endoscopic evaluation, depending on GI recommendations. Exam - Constitutional Vitals: Period Temp Pulse Resp BP Sys/Brown Pulse Ox Last 24 Hr 96.6 F-97.9 F 50-65 16-28 149-197/68-091 94-100 Heart is regular with a soft systolic murmur no gallop. Lungs are clear with no rales or wheezes. Abdomen is soft. She is awake and alert Results - Labs CBC & BMP: 11/20/16 04:42 11/20/16 04:42
[2016-11-20] MEDS: INSULIN LISPRO 100 UNIT/ML SUBCUT SCH ×2 (10:42→15:01)
--- NOTE | 2016-11-20 13:13 | History and Physical Update ---
History and Physical Update - History and Physical H&P was reviewed, the patient examined and there: are no changes in the patients condition since last H&P was completed. - Physical Exam Mental Status: alert and oriented Heart: regular rate and rhythm Lung: clear to auscultation Abdomen: within normal limits Vitals: within normal limits
--- NOTE | 2016-11-20 13:27 | Operative Note ---
Date of procedure: 11/20/16 Pre-op diagnosis: Iron deficiency anemia Procedure: Procedure note: Colonoscopy with snare polypectomy Physician: Dr. Geronimo Jose Brief clinical abstract: 81-year-old female is admitted with symptomatic iron deficiency anemia. She denies gross GI bleeding. Endoscopic findings: After informed consent was obtained, the patient was placed in the left lateral decubitus position. Digital rectal exam was performed with no palpable abnormalities felt. Pediatric videocolonoscope was inserted into the rectum and advanced to the cecum without difficulty. Retroflex view within the cecum was performed back to the level of the hepatic flexure. The endoscope was advanced back to the cecum and on withdrawal colonic mucosa was carefully examined. Bowel prep was of good quality. Just adjacent to the ileocecal valve opening there was an approximately 1 cm diameter adenomatous appearing colon polyp. This was removed using blended current. Another approximately 3 mm polyp was noted in the distal ascending colon and also removed with snare. Distal to this no other polyps were seen. There were a few diverticuli in the colon. No vascular abnormalities were seen. The endoscope was withdrawn in the rectum with retroflex view showing no abnormalities. The endoscope was removed and she appeared to tolerate the procedure well. Impression: #1 colon polyps #2 diverticulosis coli Plan: Small bowel series at some point to evaluate remainder of GI tract. If discharged today could check as outpatient. Anesthesia: MAC Surgeon / Physician: Dewey Jose Estimated blood loss: minimal Specimens: other (Ileocecal valve polyp and ascending colon polyp) Condition: stable Disposition: post procedure unit Results - Labs CBC & BMP: 11/20/16 04:42 11/20/16 04:42 Discharge Plan - Discharge Medications No Action Carvedilol [Coreg] 6.25 mg PO Q12HR Dexlansoprazole [Dexilant] 60 mg PO DAILY Gabapentin 100 mg PO TID Aspirin [Ecotrin] 81 mg PO DAILY Insulin NPH/Regular 70/30 [HumuLIN 70/30] 20 unit SUBCUT QAM Insulin NPH/Regular 70/30 [HumuLIN 70/30] 20 unit SUBCUT QPM Ferrous Sulfate 325 mg PO DAILY Cilostazol 100 mg PO BID amLODIPine [Norvasc] 5 mg PO DAILY Valsartan/Hydrochlorothiazide [Diovan Hct 320-25 mg Tablet] 1 each PO DAILY Vorapaxar Sulfate [Zontivity] 2.08 mg PO DAILY Rosuvastatin Calcium [Crestor] 40 mg PO DAILY Sitagliptin Phos/Metformin HCl [Janumet 50-1,000 mg Tablet] 50 mg PO DAILY W/ SUPPER - Follow Up or Referral - Forms/Instructions
--- NOTE | 2016-11-20 13:30 | Anesthesia Post-Op ---
Anesthesia Post OP - Post Ansesthetic Evaluation Patient seen in post op: Yes Resp: within normal limits CV: within normal limits Mental: within normal limits Temp: within normal limits [id number]: within normal limits Nausea and Vomiting: within normal limits Pain: within normal limits
--- NOTE | 2016-11-20 13:32 | Anesthesia Post-Op ---
Anesthesia Post OP - Post Ansesthetic Evaluation Patient seen in post op: Yes Resp: within normal limits CV: within normal limits Mental: within normal limits Temp: within normal limits [id number]: within normal limits Nausea and Vomiting: within normal limits Pain: within normal limits
[2016-11-20] MEDS: GABAPENTIN 100 MG CAPSULE PO SCH ×2 (15:01→15:06)
[2016-11-20] MEDS: ROSUVASTATIN CALCIUM 40 MG PO SCH (15:05)
[2016-11-20] MEDS: VALSARTAN 160 MG TABLET PO SCH (15:05)
[2016-11-20] MEDS: CARVEDILOL 12.5 MG TABLET PO SCH (15:06)
[2016-11-20] MEDS: ASPIRIN EC 81 MG TABLET PO SCH (15:06)
[2016-11-20] MEDS: PANTOPRAZOLE 40 MG TABLET PO SCH (15:06)
--- NOTE | 2016-11-20 16:19 | Discharge Summary ---
Hospital Course - Hospital Course Hospital Course: Discharge diagnosis: 1. Near syncope 2. Iron deficiency anemia The patient was admitted to the hospital with what appeared to be a near syncopal episode. She was found to be iron deficient. Upper endoscopy was unrevealing. Colonoscopy showed a couple of polyps that were resected. GI recommended a small bowel x-ray that can be done as an outpatient. The patient was anxious to go home. We will let her go home today. Medication reconciliation has been performed. Resume home diet. Activity as tolerated. Follow-up with GI. This note was completed using [employer] voice recognition software. There may be electronics technology instructor errors as a result. Diagnosis - Discharge Diagnosis (1) Near syncope Status: Acute Discharge Plan - Discharge Data Disposition: Disch To Home/Self Care Condition at Discharge: Stable Discharge Diet: advance to your usual diet Activity: resume usual activities as tolerated Hygiene: no restrictions Weight Bearing at Discharge: full weight bearing Driving: no restrictions - Discharge Medications Continue Carvedilol [Coreg] 6.25 mg PO Q12HR Dexlansoprazole [Dexilant] 60 mg PO DAILY Gabapentin 100 mg PO TID Aspirin [Ecotrin] 81 mg PO DAILY Insulin NPH/Regular 70/30 [HumuLIN 70/30] 20 unit SUBCUT QAM Insulin NPH/Regular 70/30 [HumuLIN 70/30] 20 unit SUBCUT QPM Ferrous Sulfate 325 mg PO DAILY Cilostazol 100 mg PO BID amLODIPine [Norvasc] 5 mg PO DAILY Valsartan/Hydrochlorothiazide [Diovan Hct 320-25 mg Tablet] 1 each PO DAILY Vorapaxar Sulfate [Zontivity] 2.08 mg PO DAILY Rosuvastatin Calcium [Crestor] 40 mg PO DAILY Sitagliptin Phos/Metformin HCl [Janumet 50-1,000 mg Tablet] 50 mg PO DAILY W/ SUPPER - Follow Up or Referral - Forms/Instructions Exam - Constitutional Vitals: Period Temp Pulse Resp BP Sys/Brown Pulse Ox Last 24 Hr 96.6 F-98.2 F 53-82 16-20 141-179/65-067 95-100 Vital signs are noted above. Heart is regular with no murmur or gallop. Lungs are clear with no rales or wheezes. Abdomen is soft without mass. She is awake and alert. Discharge Results Procedures and tests throughout hospitalization: Pending Orders 11/17/16 17:41 Occult Blood, Stool Stat 11/21/16 04:00 BMP w/ Mg [Basic Metabolic Panel w/Mg] IN AM Labs on day of discharge: Labs from last 24 hours 11/20/16 11/20/16 11/20/16 11:22 07:31 04:42 WBC RBC Hgb Hct MCV MCH MCHC RDW Plt Count MPV Neut % (Auto) Lymph % (Auto) [place] % (Auto) Eos % (Auto) Baso % (Auto) Neut # (Auto) Lymph # (Auto) [place] # (Auto) Eos # (Auto) Baso # (Auto) Immature Gran % Nucleated RBC % Immature Gran # Nucleated RBCs # Immature Plt Fraction Sodium 143 Potassium 4.0 Chloride 109 H Carbon Dioxide 28 Anion Gap 10.0 BUN 11 Creatinine 0.80 GFR Calculation 80 BUN/Creatinine Ratio 13.00 Glucose 123 H POC Glucose 118 H 132 H Calculated Osmolality 284.0 Calcium 8.7 Magnesium 1.8 11/20/16 11/19/16 04:42 18:36 WBC 7.9 RBC 5.52 H Hgb 13.4 Hct 41.9 MCV 75.9 L MCH 24 L MCHC 32.0 RDW 19.4 H Plt Count 203 MPV 9.3 L Neut % (Auto) 64.2 Lymph % (Auto) 23.6 [place] % (Auto) 7.6 Eos % (Auto) 3.8 Baso % (Auto) 0.5 Neut # (Auto) 5.1 Lymph # (Auto) 1.9 [place] # (Auto) 0.6 Eos # (Auto) 0.3 Baso # (Auto) 0.0 Immature Gran % 0.3 Nucleated RBC % 0.0 Immature Gran # 0.02 Nucleated RBCs # 0.00 Immature Plt Fraction 0.0 Sodium Potassium Chloride Carbon Dioxide Anion Gap BUN Creatinine GFR Calculation BUN/Creatinine Ratio Glucose POC Glucose 163 H Calculated Osmolality Calcium Magnesium DS: Provider Date of admission: 11/16/16 17:07 Primary care physician: Robe Jerome Attending physician on admission: Shelli Benites MD Consults: 11/16/16 17:08 Consult to Case Mgmt/Social Srvs [CONS] Routine Reason for Case Mgmt/Social Srvs: Discharge Planning Consult to Occupational Therapy [CONS] Routine Reason for Occupational Therapy: Evaluate and Treat Consult Comment: Stroke Consult to Physical Therapy [CONS] Routine Reason for Physical Therapy: Evaluate and Treat Consult Comment: stroke 11/17/16 11:35 Consult to Physician [CONS] Routine Comment: gi bleed Consulting Provider: Haja Birmingham Consulting Provider Notified: No When should Consulting Provider be notified: In am Person Notified: Dr. Birmingham Date Notified: 11/17/16 11/17/16 19:10 Consult to Anesthesiology [CONS] Routine Consulting Provider: Reason for Anesthesiology: Pre-op Clearance 11/19/16 09:29 Consult to Case Mgmt/Social Srvs [CONS] Routine Reason for Case Mgmt/Social Srvs: Equipment Consult Comment: Bedside commode to be delivered to patient's home Discharging clinician: Shailesh Martin MD Expected date of discharge: 11/20/16
[2016-11-20 16:26] VITALS: BP 170/75
--- NOTE | 2016-11-21 18:27 | Pathology Report from [facility] ---
[facility] ACCESSION # : [id number] PATIENT NAME : Esequiel Swartz ORDERING DR : PAPITO CARVER MD CLINICAL HX: Iron def anemia - History colon polyps - Constipation POST-OP DX: Colon polyps SPECIMEN INFO: Ileocecal valve polyp/Ascending polyp GROSS DESCRIPTION: The specimen is received in formalin labeled with the patients name and consists of a 1.2 x 0.4 cm red-pinto tissue fragment. Sectioned and submitted in one cassette. DIAGNOSIS FOR ESEQUIEL SWARTZ: ILEOCECAL VALVE, BIOPSY: Tubular adenoma. COLLECTED DATE: 11/20/2016 [facility] REPORT DATE: 11/21/2016 ELECTRONICALLY SIGNED BY: Jack Shell III, M.D. 11/21/2016 - 9:20:31 [facility]
== END 2016-11-20 17:10 | disposition home health service (06) | DRG 812 ==
LOC: EDUNIT# → EDBD → N.ED 14:10 → SUATTDRO 17:07 → N.EDINP 17:07 → N.4E 18:47
PROVIDERS: ADMIT Family Medicine; ATTEND Internal Medicine Geriatric Medicine

== ENCOUNTER 2017-02-10 12:35 | Observation (INO) ==
[2017-02-10 15:15] LABS: Alanine Aminotransferase 17 U/L (13-56); Albumin 3.3 G/DL (3.4-5.0); Alkaline Phosphatase 71 U/L (45-117); Aspartate Amino Transferase 17 U/L (0-37); Bilirubin,Total < 0.39 MG/DL (0.2-1.0); Blood Urea Nitrogen 32 MG/DL (7-18); Calcium 8.6 MG/DL (8.5-10.1); Glucose 137 MG/DL (74-106); Osmolality,Calculated 289.3 MOS/KG (273-304); Potassium 4.8 MMOL/L (3.5-5.1); Sodium 141 MMOL/L (136-145); Total Protein 6.8 G/DL (6.4-8.3); Troponin I Only < 0.015 NG/ML (0.00-0.045)
[2017-02-10 15:41] LABS: Basophils # 0.1 10*3/uL (0.0-0.2); Basophils % 0.6 % (0.0-0.8); Eosinophils # 0.2 10*3/uL (0.0-0.87); Eosinophils % 1.9 % (0.00-10.9); Hematocrit 31.7 VOL% (35.7-47.0); Immature Granulocytes % 0.2 %; Immature Granulocytes Absolute 0.02 #; Lymphocytes # 2.3 10*3/uL (1.4-4.0); Lymphocytes % 26.3 % (21.3-54.2); Mean Corpuscular HGB Conc 31.5 GM/DL (32-36); Mean Corpuscular Hemoglobin 23 PG (27-34); Mean Corpuscular Volume 74.1 FL (87-102); Mean Platelet Volume 9.9 FL (9.6-12.0); Monocytes # 0.6 10*3/uL (0.11-0.8); Monocytes % 6.8 % (1.7-12.7); Neutrophils # 5.6 10*3/uL (1.4-7.4); Neutrophils % 64.2 % (38.7-73.9); Platelet Count 226 T/CUMM (130-400); Red Blood Count 4.28 MC/CUMM (3.8-5.5); Red Cell Distribution Width 16.7 % (9.3-17.3); White Blood Count 8.7 T/CUMM (4-12)
[2017-02-10] MEDS ORDERED: GLUCAGON 1 MG VIAL IM PRN ×2 (17:19→17:27)
[2017-02-10] MEDS ORDERED: DEXTROSE 50% 25 GM/50 ML VIAL IV PRN ×2 (17:19→17:27)
[2017-02-10 17:29] LABS: Magnesium 1.3 MG/DL (1.8-2.4); Phosphorous 2.7 MG/DL (2.5-4.9)
[2017-02-10 17:42] LABS: Free T4 (Free Thyroxine) 1.11 NG/DL (0.76-1.46); Thyroid Stimulating Hormone 1.32 uIU/ml (0.358-3.74)
[2017-02-10] MEDS: INSULIN REGULAR 100 UNIT/ML SUBCUT SCH (20:47)
[2017-02-10] MEDS: GABAPENTIN 100 MG CAPSULE PO SCH (20:48)
[2017-02-10] MEDS: CILOSTAZOL 100 MG TABLET PO SCH (20:48)
[2017-02-10] MEDS: FERROUS SULFATE 325 MG TABLET PO SCH (20:48)
[2017-02-10] MEDS: ASPIRIN EC 81 MG TABLET PO SCH (20:48)
[2017-02-10] MEDS: amLODIPine 5 MG TABLET PO SCH (20:49)
[2017-02-10] MEDS ORDERED: NON-FORMULARY MEDICATION (Rosuvastatin Calcium [Crestor] 40 MG) PO SCH (21:00)
[2017-02-10] MEDS ORDERED: NON-FORMULARY MEDICATION (Cyanocobalamin (Vitamin B-12) [Vitamin B-12] 1,000 MCG) PO SCH (21:00)
[2017-02-10] MEDS ORDERED: MULTIVITAMIN PO SCH (21:00)
[2017-02-10] MEDS ORDERED: POTASSIUM CHLORIDE 20 MEQ PO SCH (21:00)
[2017-02-10] MEDS ORDERED: NON-FORMULARY MEDICATION (Dexlansoprazole [Dexilant] 60 MG) PO SCH (21:00)
[2017-02-10 21:52] LABS: Apearance,Urine CLEAR (Clear); Bacteria,Urine Occasional /HPF (Few); Bilirubin,Urine Negative (Negative); Blood, Urine Moderate mg/dL (Negative); Glucose,Urine (UA) Negative (Negative); Ketones,Urine Negative (Negative); Nitrite,Urine Negative (Negative); Protein,Urine 30 MG/DL; RBC,Urine 1 /HPF (0-4); Squamous Epithelial Cell,Urine Occasional /HPF (0-10); Urine Color Straw (Yellow); Urine Specific Gravity 1.008 (1.001-1.035); Urine Urobilinogen < 2.0 EU/DL (0.2-1.0); WBC,Urine 1 /HPF (0-6)
[2017-02-10] MEDS ORDERED: MAGNESIUM SULF RIDER 2 GM in PREMIX 1 EACH IV PRN (22:30)
[2017-02-10] MEDS ORDERED: MAGNESIUM SULF RIDER 4 GM in PREMIX 1 EACH IV PRN (22:30)
[2017-02-11] MEDS: GABAPENTIN 100 MG CAPSULE PO SCH ×3 (08:53→21:17)
[2017-02-11] MEDS: CILOSTAZOL 100 MG TABLET PO SCH ×2 (08:53→21:17)
[2017-02-11] MEDS: POTASSIUM CHLORIDE 20 MEQ TABLET PO SCH ×2 (08:53→21:17)
[2017-02-11] MEDS: INSULIN NPH/REGULAR 70/30 100 UNIT/ML SUBCUT SCH ×2 (08:56→16:12)
[2017-02-11] MEDS: INSULIN REGULAR 100 UNIT/ML SUBCUT SCH ×4 (08:58→21:17)
[2017-02-11 15:30] LABS: Albumin 3.1 G/DL (3.4-5.0); Calcium 8.6 MG/DL (8.5-10.1); Osmolality,Calculated 287.1 MOS/KG (273-304); Phosphorous 3.1 MG/DL (2.5-4.9); Potassium 3.8 MMOL/L (3.5-5.1)
[2017-02-11] MEDS ORDERED: ALUMINUM/MAGNES/SIMETH MAX STR 30 ML UDCUP PO PRN (15:45)
[2017-02-11] MEDS ORDERED: SODIUM CHLORIDE 0.9% 500 ML IV SCH (16:00)
[2017-02-11] MEDS ORDERED: ROSUVASTATIN 20 MG TABLET PO SCH (21:00)
[2017-02-11] MEDS ORDERED: MULTIVITAMIN (CENTRUM) TABLET PO SCH (21:00)
[2017-02-11] MEDS ORDERED: CYANOCOBALAMIN 500 MCG TABLET PO SCH (21:00)
[2017-02-11] MEDS ORDERED: PANTOPRAZOLE 40 MG TABLET PO SCH (21:00)
[2017-02-11] MEDS: ASPIRIN EC 81 MG TABLET PO SCH (21:17)
[2017-02-11] MEDS: amLODIPine 5 MG TABLET PO SCH (21:17)
[2017-02-11] MEDS: FERROUS SULFATE 325 MG TABLET PO SCH (21:17)
[2017-02-12 06:20] LABS: Albumin 2.7 G/DL (3.4-5.0); Calcium 8.8 MG/DL (8.5-10.1); Osmolality,Calculated 291.1 MOS/KG (273-304); Phosphorous 3.3 MG/DL (2.5-4.9); Potassium 4.5 MMOL/L (3.5-5.1)
[2017-02-12] MEDS: GABAPENTIN 100 MG CAPSULE PO SCH (09:11)
[2017-02-12] MEDS: CILOSTAZOL 100 MG TABLET PO SCH (09:11)
[2017-02-12] MEDS: INSULIN NPH/REGULAR 70/30 100 UNIT/ML SUBCUT SCH (09:11)
[2017-02-12] MEDS: POTASSIUM CHLORIDE 20 MEQ TABLET PO SCH (09:11)
[2017-02-12] MEDS: INSULIN REGULAR 100 UNIT/ML SUBCUT SCH ×2 (09:12→11:16)
[2017-02-12 11:31] VITALS: BP 99/54
== END 2017-02-12 14:00 | disposition home or self-care (01) ==
LOC: N.ED 12:35 → N.EDINP 16:04 → INTOOBSV 16:04 → SUATTDRO 17:11 → N.TELES 17:28
PROVIDERS: ADMIT Pediatrics; ATTEND Internal Medicine

== ENCOUNTER 2017-07-27 21:40 | Observation (INO) ==
[2017-07-27 22:56] LABS: Lactic Acid 2.1 MMOL/L (0.4-2.0)
[2017-07-28 00:29] LABS: Alanine Aminotransferase 23 U/L (13-56); Albumin 3.4 G/DL (3.4-5.0); Alkaline Phosphatase 104 U/L (45-117); Aspartate Amino Transferase 25 U/L (0-37); Bilirubin,Total < 0.39 MG/DL (0.2-1.0); Blood Urea Nitrogen 34 MG/DL (7-18); CKMB % 0.9 %; Glucose 310 MG/DL (74-106); Osmolality,Calculated 289.1 MOS/KG (273-304); Sodium 135 MMOL/L (136-145); Total Protein 7.9 G/DL (6.4-8.3); Troponin I Only < 0.015 NG/ML (0.00-0.045)
[2017-07-28 01:13] LABS: Basophils % 0.5 % (0.0-0.8); Eosinophils # 0.2 10*3/uL (0.0-0.87); Eosinophils % 3.6 % (0.00-10.9); Hematocrit 39.1 VOL% (35.7-47.0); Hemoglobin 12.1 GM/DL (12.0-16.0); Immature Granulocytes % 0.3 %; Immature Granulocytes Absolute 0.02 #; Lymphocytes # 2.1 10*3/uL (1.4-4.0); Lymphocytes % 31.5 % (21.3-54.2); Mean Corpuscular HGB Conc 30.9 GM/DL (32-36); Mean Corpuscular Hemoglobin 22 PG (27-34); Mean Corpuscular Volume 71.5 FL (87-102); Mean Platelet Volume 10.4 FL (9.6-12.0); Monocytes # 0.6 10*3/uL (0.11-0.8); Monocytes % 8.4 % (1.7-12.7); Neutrophils # 3.7 10*3/uL (1.4-7.4); Neutrophils % 55.7 % (38.7-73.9); Platelet Count 115 T/CUMM (130-400); Red Blood Count 5.47 MC/CUMM (3.8-5.5); White Blood Count 6.6 T/CUMM (4-12)
[2017-07-28] MEDS ORDERED: SODIUM CHLORIDE 0.9% 1,000 ML IV STA (01:33)
[2017-07-28] MEDS ORDERED: DEXTROSE 50% 25 GM/50 ML VIAL IV PRN (04:21)
[2017-07-28] MEDS ORDERED: GLUCAGON 1 MG VIAL IM PRN (04:21)
[2017-07-28] MEDS ORDERED: ACETAMINOPHEN 325 MG TABLET PO PRN (04:21)
[2017-07-28] MEDS ORDERED: MORPHINE 4 MG/1 ML VIAL IV PRN (04:21)
[2017-07-28] MEDS ORDERED: ONDANSETRON 4 MG/2 ML VIAL IV PRN (04:21)
[2017-07-28 04:41] LABS: Band Neutrophils 3 % (0-10); Eosinophils 2 % (0-10); Lymphocytes 30 % (20-55); Segmented Neutrophils 60 % (50-85); Total Cells Counted 100
[2017-07-28 04:42] LABS: Anisocytosis 1+
[2017-07-28 04:43] LABS: Platelet Estimate Adequate
[2017-07-28] MEDS ORDERED: INSULIN NPH/REGULAR 70/30 100 UNIT/ML SUBCUT SCH (07:30)
[2017-07-28] MEDS ORDERED: SODIUM CHLORIDE 0.9% 1,000 ML IV SCH (07:30)
[2017-07-28] MEDS ORDERED: CETIRIZINE 10 MG TABLET PO SCH (09:00)
[2017-07-28] MEDS ORDERED: PANTOPRAZOLE 40 MG TABLET PO SCH (09:00)
[2017-07-28] MEDS ORDERED: FERROUS SULFATE 325 MG TABLET PO SCH (09:00)
[2017-07-28] MEDS ORDERED: CILOSTAZOL 100 MG TABLET PO SCH (09:00)
[2017-07-28] MEDS ORDERED: ENOXAPARIN 30 MG/0.3 ML SYRINGE SUBCUT SCH (09:00)
[2017-07-28] MEDS ORDERED: CLOPIDOGREL 75 MG TABLET PO SCH (09:00)
[2017-07-28] MEDS ORDERED: VALSARTAN/HCTZ 80-12.5 MG TABLET PO SCH (09:00)
[2017-07-28] MEDS ORDERED: FUROSEMIDE 20 MG TABLET PO SCH (09:00)
[2017-07-28] MEDS: INSULIN LISPRO 100 UNIT/ML SUBCUT SCH ×2 (09:45→12:19)
[2017-07-28] MEDS: POTASSIUM CHLORIDE 20 MEQ TABLET PO SCH ×2 (09:47→12:20)
[2017-07-28] MEDS ORDERED: CARVEDILOL 3.125 MG TABLET PO SCH (10:30)
[2017-07-28 11:19] VITALS: BP 146/70
[2017-07-28 12:11] LABS: Lactic Acid 2.6 MMOL/L (0.4-2.0)
[2017-07-28] MEDS ORDERED: ASPIRIN EC 81 MG TABLET PO SCH (21:00)
[2017-07-28] MEDS ORDERED: NON-FORMULARY MEDICATION (Dexlansoprazole [Dexilant] 60 MG) PO SCH (21:00)
[2017-07-28] MEDS ORDERED: ROSUVASTATIN 20 MG TABLET PO SCH (21:00)
[2017-07-28] MEDS ORDERED: amLODIPine 5 MG TABLET PO SCH (21:00)
[2017-07-29] MEDS ORDERED: CYANOCOBALAMIN 5000 MCG PO SCH (09:00)
== END 2017-07-28 15:02 | disposition home or self-care (01) ==
LOC: EDBD → EDUNIT# → N.EDINP 21:40 → N.ED 21:40 → N.5E 07-28 04:46
PROVIDERS: ADMIT Internal Medicine; ATTEND Internal Medicine

== ENCOUNTER 2018-01-21 20:41 | Observation (INO) ==
[2018-01-21] MEDS ORDERED: NITROGLYCERIN 2% OINT 1 INCH/GM PACK TOP STA (21:07)
[2018-01-21] MEDS ORDERED: ONDANSETRON 4 MG/2 ML VIAL IV STA (21:07)
[2018-01-21] MEDS ORDERED: PANTOPRAZOLE 40 MG VIAL IV STA (21:07)
[2018-01-21] MEDS ORDERED: ASPIRIN 325 MG TABLET PO STA (21:07)
[2018-01-21] MEDS ORDERED: ALUM/MAG/SIMETH/LIDO VISC 1:1 30 ML BOTTLE PO STA (21:07)
[2018-01-21] MEDS ORDERED: MORPHINE 4 MG/1 ML VIAL IV STA (21:07)
[2018-01-21 22:21] LABS: Basophils % 0.4 % (0.0-0.8); Eosinophils # 0.2 10*3/uL (0.0-0.87); Eosinophils % 2.7 % (0.00-10.9); Hematocrit 35.2 VOL% (35.7-47.0); Hemoglobin 10.6 GM/DL (12.0-16.0); Immature Granulocytes % 0.4 %; Immature Granulocytes Absolute 0.03 #; Lymphocytes % 24.4 % (21.3-54.2); Mean Corpuscular HGB Conc 30.1 GM/DL (32-36); Mean Corpuscular Hemoglobin 22 PG (27-34); Mean Corpuscular Volume 73.3 FL (87-102); Mean Platelet Volume 10.3 FL (9.6-12.0); Monocytes # 0.5 10*3/uL (0.11-0.8); Monocytes % 6.3 % (1.7-12.7); Neutrophils # 5.4 10*3/uL (1.4-7.4); Neutrophils % 65.8 % (38.7-73.9); Platelet Count 204 T/CUMM (130-400); Red Cell Distribution Width 15.4 % (9.3-17.3); White Blood Count 8.2 T/CUMM (4-12)
[2018-01-21 22:41] LABS: Alanine Aminotransferase 21 U/L (13-56); Alkaline Phosphatase 85 U/L (45-117); Aspartate Amino Transferase 13 U/L (0-37); Bilirubin,Total < 0.39 MG/DL (0.2-1.0); Blood Urea Nitrogen 27 MG/DL (7-18); Calcium 8.6 MG/DL (8.5-10.1); Glucose 307 MG/DL (74-106); Osmolality,Calculated 291.7 MOS/KG (273-304); Potassium 3.6 MMOL/L (3.5-5.1); Sodium 138 MMOL/L (136-145); Total Protein 7.1 G/DL (6.4-8.3)
[2018-01-21 23:13] LABS: Apearance,Urine CLEAR (Clear); Bacteria,Urine Few /HPF (Few); Bilirubin,Urine Negative (Negative); Blood, Urine Small mg/dL (Negative); Glucose,Urine (UA) >=500 mg/dL (Negative); Ketones,Urine Negative (Negative); Mucus,Urine Occasional /LPF (Occasional); Nitrite,Urine Negative (Negative); Protein,Urine 30 MG/DL; RBC,Urine <1 /HPF (0-4); Squamous Epithelial Cell,Urine Occasional /HPF (0-10); Urine Color Straw (Yellow); Urine Specific Gravity 1.007 (1.001-1.035); Urine Urobilinogen < 2.0 EU/DL (0.2-1.0); WBC,Urine 1 /HPF (0-6)
[2018-01-22] MEDS ORDERED: SODIUM CHLORIDE 0.9% 1,000 ML IV SCH (03:58)
[2018-01-22] MEDS ORDERED: MAGNESIUM SULF RIDER 2 GM in PREMIX 1 EACH IV PRN (03:58)
[2018-01-22] MEDS ORDERED: ONDANSETRON 4 MG/2 ML VIAL IV PRN (03:58)
[2018-01-22] MEDS ORDERED: GLUCAGON 1 MG VIAL IM PRN (03:58)
[2018-01-22] MEDS ORDERED: MORPHINE 4 MG/1 ML VIAL IV PRN (03:58)
[2018-01-22] MEDS ORDERED: DEXTROSE 50% 25 GM/50 ML VIAL IV PRN (03:58)
[2018-01-22] MEDS ORDERED: MAGNESIUM SULF RIDER 4 GM in PREMIX 1 EACH IV PRN (03:58)
[2018-01-22] MEDS ORDERED: POTASSIUM CHLORIDE 20 MEQ TABLET PO PRN (03:58)
[2018-01-22 04:40] LABS: Basophils % 0.4 % (0.0-0.8); Eosinophils # 0.3 10*3/uL (0.0-0.87); Eosinophils % 3.5 % (0.00-10.9); Hematocrit 34.5 VOL% (35.7-47.0); Hemoglobin 10.5 GM/DL (12.0-16.0); Immature Granulocytes % 0.3 %; Immature Granulocytes Absolute 0.02 #; Lymphocytes # 2.2 10*3/uL (1.4-4.0); Mean Corpuscular HGB Conc 30.4 GM/DL (32-36); Mean Corpuscular Hemoglobin 22 PG (27-34); Mean Corpuscular Volume 73.2 FL (87-102); Mean Platelet Volume 10.5 FL (9.6-12.0); Monocytes # 0.5 10*3/uL (0.11-0.8); Monocytes % 6.8 % (1.7-12.7); Neutrophils # 4.5 10*3/uL (1.4-7.4); Platelet Count 217 T/CUMM (130-400); Red Blood Count 4.71 MC/CUMM (3.8-5.5); Red Cell Distribution Width 15.3 % (9.3-17.3); White Blood Count 7.5 T/CUMM (4-12)
[2018-01-22] MEDS ORDERED: ENOXAPARIN 80 MG/0.8 ML SYRINGE SUBCUT SCH (05:00)
[2018-01-22] MEDS: INSULIN REGULAR 100 UNIT/ML SUBCUT SCH ×3 (05:06→12:04)
[2018-01-22] MEDS: NITROGLYCERIN 2% OINT 1 INCH/GM PACK TOP SCH ×3 (05:07→12:04)
[2018-01-22 06:02] LABS: Alanine Aminotransferase 24 U/L (13-56); Alkaline Phosphatase 80 U/L (45-117); Aspartate Amino Transferase 14 U/L (0-37); Bilirubin,Total < 0.39 MG/DL (0.2-1.0); Blood Urea Nitrogen 25 MG/DL (7-18); Cholesterol 135 MG/DL (50-200); Glucose 227 MG/DL (74-106); HDL Cholesterol 53 MG/DL (40-60); Osmolality,Calculated 285.7 MOS/KG (273-304); Potassium 4.4 MMOL/L (3.5-5.1); Risk Ratio 2.55; Sodium 138 MMOL/L (136-145); Total Protein 7.1 G/DL (6.4-8.3); Triglycerides 149 MG/DL (2-150); VLDL CHOLESTEROL 29.8 MG/DL
[2018-01-22] MEDS ORDERED: PANTOPRAZOLE 40 MG TABLET PO SCH (09:00)
[2018-01-22 11:57] VITALS: BP 180/77
== END 2018-01-22 14:40 | disposition home or self-care (01) ==
LOC: EDBD → EDUNIT# → N.EDINP 20:41 → N.ED 20:41 → N.TELES 01-22 00:37
PROVIDERS: ADMIT Internal Medicine Cardiovascular Disease; ATTEND Internal Medicine Cardiovascular Disease

== ENCOUNTER 2021-06-28 22:29 | Inpatient (IN) ==
[2021-06-28] MEDS ORDERED: INSULIN REGULAR 100 UNIT/ML IV STA (22:48)
[2021-06-28] MEDS ORDERED: SODIUM CHLORIDE 0.9% 1,000 ML IV STA (22:48)
[2021-06-29 00:36] LABS: Bilirubin,Urine Negative (Negative); Blood, Urine Moderate mg/dL (Negative); Glucose,Urine (UA) >=1000 mg/dL (Negative); Ketones,Urine Negative (Negative); Nitrite,Urine Negative (Negative); Protein,Urine 30 mg/dL (Negative); Urine Appearance Clear (Clear); Urine Color Yellow (Yellow); Urine Specific Gravity 1.015 (1.001-1.035); Urine Urobilinogen 0.2 eU/dL (<2.0)
[2021-06-29 00:38] LABS: Squamous Epithelial Cell,Urine Occasional /HPF (0-10)
[2021-06-29 00:53] LABS: Bacteria,Urine Few /HPF (Few); RBC,Urine <1 /HPF (0-4)
[2021-06-29] MEDS ORDERED: INSULIN REGULAR 100 UNIT/ML SUBCUT STA ×2 (02:15→03:08)
[2021-06-29] MEDS ORDERED: amLODIPine 5 MG TABLET PO STA (03:31)
[2021-06-29] MEDS ORDERED: DEXTROSE 10% 250 ML BAG IV PRN (04:15)
[2021-06-29] MEDS ORDERED: GLUCAGON 1 MG VIAL IM PRN (04:15)
[2021-06-29] MEDS ORDERED: ACETAMINOPHEN 325 MG TABLET PO PRN (04:15)
[2021-06-29 06:02] LABS: Basophils % 0.4 % (0.0-0.8); Eosinophils # 0.2 10*3/uL (0.0-0.87); Eosinophils % 1.9 % (0.00-10.9); Hematocrit 32.7 VOL% (35.7-47.0); Hemoglobin 10.1 GM/DL (12.0-16.0); Immature Granulocytes % 0.3 %; Immature Granulocytes Absolute 0.03 #; Lymphocytes # 2.2 10*3/uL (1.4-4.0); Lymphocytes % 23.6 % (21.3-54.2); Mean Corpuscular HGB Conc 30.9 GM/DL (32-36); Mean Corpuscular Volume 71.6 FL (87-102); Mean Platelet Volume 10.6 FL (9.6-12.0); Monocytes % 6.2 % (1.7-12.7); Neutrophils % 67.6 % (38.7-73.9); Platelet Count 213 T/CUMM (130-400); Red Blood Count 4.57 MC/CUMM (3.8-5.5); Red Cell Distribution Width 14.8 % (9.3-17.3); White Blood Count 9.3 T/CUMM (4-12)
[2021-06-29] MEDS: INSULIN LISPRO 100 UNIT/ML SUBCUT SCH ×5 (06:15→21:39)
[2021-06-29 06:22] LABS: INR 0.9; PT Patient Result 10.5 SECS (10.5-12.0)
[2021-06-29 06:27] LABS: Alanine Aminotransferase 15 U/L (13-56); Albumin 2.8 G/DL (3.4-5.0); Alkaline Phosphatase 108 U/L (45-117); Aspartate Amino Transferase 12 U/L (0-37); Bilirubin,Total < 0.39 MG/DL (0.20-1.00); Blood Urea Nitrogen 51 MG/DL (7-18); Calcium 9.3 MG/DL (8.5-10.1); Carbon Dioxide 21 MMOL/L (21-32); Estimated Glom Filtration Rate 32 ML/MIN; Glucose 364 MG/DL (74-106); Osmolality,Calculated 296.2 MOS/KG (273-304); Potassium 4.1 MMOL/L (3.5-5.1); Sodium 134 MMOL/L (136-145); Total Protein 7.2 G/DL (6.4-8.2)
[2021-06-29] MEDS ORDERED: INSULIN GLARGINE 100 UNIT/ML SUBCUT SCH (09:00)
[2021-06-29] MEDS: PANTOPRAZOLE 40 MG TABLET PO SCH (10:37)
[2021-06-29] MEDS: INSULIN GLARGINE 100 UNIT/ML SUBCUT SCH (21:45)
[2021-06-30] MEDS: INSULIN LISPRO 100 UNIT/ML SUBCUT SCH ×3 (02:08→12:07)
[2021-06-30 05:18] LABS: Basophils % 0.3 % (0.0-0.8); Eosinophils # 0.3 10*3/uL (0.0-0.87); Eosinophils % 2.9 % (0.00-10.9); Hematocrit 32.3 VOL% (35.7-47.0); Hemoglobin 9.8 GM/DL (12.0-16.0); Immature Granulocytes % 0.3 %; Immature Granulocytes Absolute 0.03 #; Lymphocytes # 2.6 10*3/uL (1.4-4.0); Lymphocytes % 29.8 % (21.3-54.2); Mean Corpuscular HGB Conc 30.3 GM/DL (32-36); Mean Corpuscular Volume 71.5 FL (87-102); Monocytes % 6.8 % (1.7-12.7); Neutrophils % 59.9 % (38.7-73.9); Platelet Count 131 T/CUMM (130-400); Red Blood Count 4.52 MC/CUMM (3.8-5.5); Red Cell Distribution Width 14.8 % (9.3-17.3); White Blood Count 8.6 T/CUMM (4-12)
[2021-06-30 05:36] LABS: Calcium 9.3 MG/DL (8.5-10.1); Osmolality,Calculated 291.3 MOS/KG (273-304); Potassium 4.2 MMOL/L (3.5-5.1)
[2021-06-30 06:11] LABS: Platelet Estimate Decreased
[2021-06-30] MEDS ORDERED: VALSARTAN 80 MG TABLET PO SCH (09:00)
[2021-06-30] MEDS ORDERED: ASPIRIN EC 81 MG TABLET PO SCH (09:00)
[2021-06-30] MEDS ORDERED: CLOPIDOGREL 75 MG TABLET PO SCH (09:00)
[2021-06-30] MEDS ORDERED: VALSARTAN/HCTZ 80-12.5 MG TABLET PO SCH (09:00)
[2021-06-30] MEDS ORDERED: GABAPENTIN 300 MG CAPSULE PO SCH (09:00)
[2021-06-30] MEDS ORDERED: hydroCHLOROthiazide 12.5 MG CAPSULE PO SCH (09:00)
[2021-06-30] MEDS: INSULIN GLARGINE 100 UNIT/ML SUBCUT SCH (09:24)
[2021-06-30] MEDS: PANTOPRAZOLE 40 MG TABLET PO SCH (09:25)
[2021-06-30 11:47] VITALS: BP 146/75
[2021-06-30] MEDS ORDERED: INSULIN LISPRO 100 UNIT/ML SUBCUT SCH (12:00)
[2021-06-30] MEDS ORDERED: amLODIPine 5 MG TABLET PO SCH (19:00)
[2021-06-30] MEDS ORDERED: ROSUVASTATIN 20 MG TABLET PO SCH (19:00)
== END 2021-06-30 13:44 | disposition home health service (06) | DRG 638 ==
LOC: N.5E 22:29 → N.ED 22:29 → N.5E 06-29 08:28 → SUATTDRO 06-29 11:47
PROVIDERS: ADMIT Internal Medicine; ATTEND Hospitalist